=== PATIENT | female | born 1960 | race African-American/Black ===

== ENCOUNTER 2016-10-10 16:04 | Outpatient (CLI) | payer MEDICAID | END 2016-10-10 16:05 | disposition critical access hospital (66) | DX: M79.604 Pain in right leg (principal) | CPT/HCPCS: A0425; A0429 ==

== ENCOUNTER 2016-10-10 16:22 | Emergency (ER) | payer MEDICAID ==
[2016-10-10] MEDS ORDERED: HYDROcod/ACETAM 5/325 MG TABLET PO STA (18:16)
[2016-10-10] MEDS ORDERED: HYDROcod/ACETAM 5/325 MG TABLET ONE (18:18)
[2016-10-10] MEDS ORDERED: LORazepam 2 MG/ML SYRINGE IM STA (18:52)
[2016-10-10] MEDS ORDERED: LORazepam 2 MG/ML SYRINGE ONE (18:52)
== END 2016-10-10 19:26 | disposition home or self-care (01) ==
DX: S82.841A Displaced bimalleolar fracture of right lower leg, initial encounter for closed fracture (principal); I10 Essential (primary) hypertension; Z79.891 Long term (current) use of opiate analgesic; Z79.899 Other long term (current) drug therapy; W19.XXXA Unspecified fall, initial encounter; Y93.9 Activity, unspecified; Y92.009 Unspecified place in unspecified non-institutional (private) residence as the place of occurrence of the external cause; Y99.9 Unspecified external cause status
CPT/HCPCS: 73610; 96372; 99283; 99284; A9270; J2060

== ENCOUNTER 2016-10-12 15:02 | Inpatient (IN) | payer MEDICAID ==
[2016-10-12] MEDS ORDERED: SODIUM CHLORIDE FLUSH 0.9% 10 ML SYRINGE IVP PRN (15:09)
[2016-10-12] MEDS ORDERED: ONDANSETRON ODT 4 MG TABLET TL PRN (15:16)
[2016-10-12] MEDS ORDERED: diazePAM 5 MG TABLET PO PRN (15:16)
[2016-10-12] MEDS: oxyCOD/ACETAMIN 5 MG/325 MG TABLET PO PRN ×3 (15:31→23:43)
[2016-10-12] MEDS ORDERED: hydroCHLOROthiazide 25 MG TABLET PO SCH (16:00)
[2016-10-12] MEDS: SODIUM CHLORIDE FLUSH 0.9% 10 ML SYRINGE IVP SCH (19:58)
[2016-10-12] MEDS: SODIUM CHLORIDE 0.9% 1,000 ML IV SCH (19:58)
[2016-10-12] MEDS: ATORVASTATIN 10 MG TABLET PO SCH (22:49)
[2016-10-12] MEDS: diphenhydrAMINE INJ 50 MG/ML VIAL IVP PRN (22:54)
[2016-10-13] MEDS: oxyCOD/ACETAMIN 5 MG/325 MG TABLET PO PRN ×5 (04:49→21:21)
[2016-10-13] MEDS: SODIUM CHLORIDE FLUSH 0.9% 10 ML SYRINGE IVP SCH ×2 (05:18→11:45)
[2016-10-13] MEDS: diphenhydrAMINE INJ 50 MG/ML VIAL IVP PRN (06:22)
[2016-10-13] MEDS ORDERED: DEXTROSE 50% ABBOJECT 25 GM/50 ML SYRINGE IVP PRN ×2 (08:07→17:28)
[2016-10-13] MEDS ORDERED: DEXTROSE GEL 37.5 GM TUBE PO PRN ×2 (08:07→17:28)
[2016-10-13] MEDS ORDERED: DEXTROSE 5% 1,000 ML IV PRN ×2 (08:07→17:28)
[2016-10-13] MEDS ORDERED: GLUCAGON 1 MG/ML VIAL SUBQ PRN ×2 (08:07→17:28)
[2016-10-13] MEDS: FLUoxetine 10 MG CAPSULE PO SCH (08:12)
[2016-10-13] MEDS: GABAPENTIN 100 MG CAPSULE PO SCH (08:12)
[2016-10-13] MEDS: lamoTRIgine 25 MG TABLET PO SCH (08:12)
[2016-10-13] MEDS: DOCUSATE SODIUM 100 MG CAPSULE PO SCH (08:12)
[2016-10-13] MEDS: metFORMIN 500 MG TABLET PO SCH (08:18)
[2016-10-13] MEDS: ENOXAPARIN 40 MG/0.4 ML SYRINGE SUBQ SCH (08:18)
[2016-10-13] MEDS: SODIUM CHLORIDE 0.9% 1,000 ML IV SCH (11:10)
[2016-10-13] MEDS: KETOROLAC 30 MG/ML VIAL IVP PRN ×2 (11:45→17:59)
[2016-10-13] MEDS ORDERED: INSULIN GLARGINE 300 UNIT/3 ML PEN SUBQ SCH (21:00)
[2016-10-13] MEDS: PRAZOSIN 1 MG CAPSULE PO SCH (21:20)
[2016-10-13] MEDS: AMITRIPTYLINE 25 MG TABLET PO SCH (21:21)
[2016-10-13] MEDS: ATORVASTATIN 10 MG TABLET PO SCH (21:21)
[2016-10-13] MEDS: INSULIN ASPART 300 UNIT/3 ML PEN SUBQ SCH (21:26)
[2016-10-14] MEDS: SODIUM CHLORIDE 0.9% 1,000 ML IV SCH ×2 (06:11→18:12)
[2016-10-14] MEDS: SODIUM CHLORIDE FLUSH 0.9% 10 ML SYRINGE IVP SCH ×4 (06:11→19:40)
[2016-10-14] MEDS: metFORMIN 500 MG TABLET PO SCH (08:01)
[2016-10-14] MEDS: lamoTRIgine 25 MG TABLET PO SCH (08:01)
[2016-10-14] MEDS: DOCUSATE SODIUM 100 MG CAPSULE PO SCH (08:01)
[2016-10-14] MEDS: FLUoxetine 10 MG CAPSULE PO SCH (08:01)
[2016-10-14] MEDS: oxyCOD/ACETAMIN 5 MG/325 MG TABLET PO PRN ×4 (08:01→21:16)
[2016-10-14] MEDS: GABAPENTIN 100 MG CAPSULE PO SCH (08:01)
[2016-10-14] MEDS: INSULIN ASPART 300 UNIT/3 ML PEN SUBQ SCH ×4 (08:01→21:16)
[2016-10-14] MEDS: ENOXAPARIN 40 MG/0.4 ML SYRINGE SUBQ SCH (08:02)
[2016-10-14] MEDS: CHOLECALCIFEROL 1,000 UNIT TABLET PO SCH (08:17)
[2016-10-14] MEDS: KETOROLAC 30 MG/ML VIAL IVP PRN (18:09)
[2016-10-14] MEDS: diphenhydrAMINE INJ 50 MG/ML VIAL IVP PRN (19:40)
[2016-10-14] MEDS: PRAZOSIN 1 MG CAPSULE PO SCH (21:15)
[2016-10-14] MEDS: ATORVASTATIN 10 MG TABLET PO SCH (21:15)
[2016-10-14] MEDS: AMITRIPTYLINE 25 MG TABLET PO SCH (21:15)
[2016-10-14] MEDS: INSULIN GLARGINE 300 UNIT/3 ML PEN SUBQ SCH (21:17)
[2016-10-15] MEDS: KETOROLAC 30 MG/ML VIAL IVP PRN ×3 (00:11→16:38)
[2016-10-15] MEDS: SODIUM CHLORIDE 0.9% 1,000 ML IV SCH ×2 (06:11→11:19)
[2016-10-15] MEDS: SODIUM CHLORIDE FLUSH 0.9% 10 ML SYRINGE IVP SCH ×3 (06:12→21:17)
[2016-10-15] MEDS: metFORMIN 500 MG TABLET PO SCH (07:43)
[2016-10-15] MEDS: ENOXAPARIN 40 MG/0.4 ML SYRINGE SUBQ SCH (07:43)
[2016-10-15] MEDS: INSULIN REGULAR HUMAN 100 UNIT/1 ML 10 ML MDV SUBQ SCH ×2 (08:05→12:26)
[2016-10-15] MEDS ORDERED: SODIUM CHLORIDE 0.9% 1,000 ML IV ONE (09:01)
[2016-10-15] MEDS ORDERED: MIDAZOLAM 2 MG/2 ML VIAL IVP ONE (09:25)
[2016-10-15] MEDS ORDERED: fentaNYL 100 MCG/2 ML VIAL IVP ONE (09:25)
[2016-10-15] MEDS ORDERED: DEXAMETHASONE 4 MG/ML VIAL IVP ONE (09:25)
[2016-10-15] MEDS ORDERED: PROPOFOL 200 MG/20 ML VIAL IVP ONE (09:25)
[2016-10-15] MEDS ORDERED: ONDANSETRON 4 MG/2 ML VIAL IVP ONE (09:25)
[2016-10-15] MEDS ORDERED: ceFAZolin 1 GM VIAL IV ONE (09:25)
[2016-10-15] MEDS ORDERED: LIDOCAINE-MPF 2% 5 ML VIAL IM ONE (09:25)
[2016-10-15] MEDS ORDERED: LACTATED RINGERS 1,000 ML IV ONE (09:56)
[2016-10-15] MEDS ORDERED: ONDANSETRON 4 MG/2 ML VIAL IVP PRN (10:06)
[2016-10-15] MEDS ORDERED: ACETAMINOPHEN 325 MG TABLET PO PRN (10:06)
[2016-10-15] MEDS: fentaNYL 100 MCG/2 ML VIAL ONE ×2 (10:20→10:30)
[2016-10-15] MEDS: DOCUSATE SODIUM 100 MG CAPSULE PO SCH ×2 (11:19→21:16)
[2016-10-15] MEDS: CHOLECALCIFEROL 1,000 UNIT TABLET PO SCH (11:19)
[2016-10-15] MEDS: FLUoxetine 10 MG CAPSULE PO SCH (11:19)
[2016-10-15] MEDS: lamoTRIgine 25 MG TABLET PO SCH (11:20)
[2016-10-15] MEDS: GABAPENTIN 100 MG CAPSULE PO SCH (11:20)
[2016-10-15] MEDS: oxyCOD/ACETAMIN 5 MG/325 MG TABLET PO PRN (13:21)
[2016-10-15] MEDS ORDERED: hydroCHLOROthiazide 25 MG TABLET PO SCH (14:44)
[2016-10-15] MEDS: oxyCODONE 5 MG TABLET PO PRN ×2 (16:38→21:15)
[2016-10-15] MEDS ORDERED: ceFAZolin 2 GM/50 ML 50 ML IV SCH (17:00)
[2016-10-15] MEDS: INSULIN ASPART 300 UNIT/3 ML PEN SUBQ SCH ×2 (17:15→21:16)
[2016-10-15] MEDS: ATORVASTATIN 10 MG TABLET PO SCH (21:13)
[2016-10-15] MEDS: AMITRIPTYLINE 25 MG TABLET PO SCH (21:13)
[2016-10-15] MEDS: PRAZOSIN 1 MG CAPSULE PO SCH (21:14)
[2016-10-15] MEDS: ACETAMINOPHEN 500 MG TABLET PO SCH (21:14)
[2016-10-15] MEDS: INSULIN GLARGINE 300 UNIT/3 ML PEN SUBQ SCH (21:16)
[2016-10-15] MEDS: SENNA 8.6 MG TABLET PO SCH (21:16)
[2016-10-15] MEDS ORDERED: MAGNESIUM HYDROXIDE 2,400 MG/30 ML UDC PO PRN (23:12)
[2016-10-16] MEDS: oxyCODONE 5 MG TABLET PO PRN ×4 (02:11→17:14)
[2016-10-16] MEDS: ACETAMINOPHEN 500 MG TABLET PO SCH ×3 (05:20→21:14)
[2016-10-16] MEDS: KETOROLAC 30 MG/ML VIAL IVP PRN ×2 (05:21→21:22)
[2016-10-16] MEDS: SODIUM CHLORIDE FLUSH 0.9% 10 ML SYRINGE IVP SCH ×3 (05:30→21:15)
[2016-10-16] MEDS: INSULIN ASPART 300 UNIT/3 ML PEN SUBQ SCH ×4 (08:17→21:05)
[2016-10-16] MEDS: FLUoxetine 10 MG CAPSULE PO SCH (08:19)
[2016-10-16] MEDS: SENNA 8.6 MG TABLET PO SCH ×2 (08:19→21:14)
[2016-10-16] MEDS: lamoTRIgine 25 MG TABLET PO SCH (08:19)
[2016-10-16] MEDS: metFORMIN 500 MG TABLET PO SCH ×2 (08:19→17:14)
[2016-10-16] MEDS: GABAPENTIN 100 MG CAPSULE PO SCH (08:19)
[2016-10-16] MEDS: DOCUSATE SODIUM 100 MG CAPSULE PO SCH ×2 (08:20→21:14)
[2016-10-16] MEDS: hydroCHLOROthiazide 25 MG TABLET PO SCH (08:20)
[2016-10-16] MEDS: POLYETHYLENE GLYCOL 3350 17 GM PACKET PO SCH (08:21)
[2016-10-16] MEDS: ENOXAPARIN 40 MG/0.4 ML SYRINGE SUBQ SCH (08:21)
[2016-10-16] MEDS: CHOLECALCIFEROL 1,000 UNIT TABLET PO SCH (08:31)
[2016-10-16] MEDS: SODIUM CHLORIDE 0.9% 1,000 ML IV SCH (18:04)
[2016-10-16] MEDS: AMITRIPTYLINE 25 MG TABLET PO SCH (21:13)
[2016-10-16] MEDS: ATORVASTATIN 10 MG TABLET PO SCH (21:14)
[2016-10-16] MEDS: PRAZOSIN 1 MG CAPSULE PO SCH (21:14)
[2016-10-16] MEDS: INSULIN GLARGINE 300 UNIT/3 ML PEN SUBQ SCH (21:15)
[2016-10-17] MEDS ORDERED: BISACODYL 10 MG SUPP PR PRN (01:25)
[2016-10-17] MEDS: SODIUM CHLORIDE FLUSH 0.9% 10 ML SYRINGE IVP SCH ×2 (06:19→13:23)
[2016-10-17] MEDS: ACETAMINOPHEN 500 MG TABLET PO SCH ×2 (07:03→13:20)
[2016-10-17] MEDS: metFORMIN 500 MG TABLET PO SCH (08:52)
[2016-10-17] MEDS: ENOXAPARIN 40 MG/0.4 ML SYRINGE SUBQ SCH (08:52)
[2016-10-17] MEDS: GABAPENTIN 100 MG CAPSULE PO SCH (08:52)
[2016-10-17] MEDS: CHOLECALCIFEROL 1,000 UNIT TABLET PO SCH (08:53)
[2016-10-17] MEDS: hydroCHLOROthiazide 25 MG TABLET PO SCH (08:53)
[2016-10-17] MEDS: FLUoxetine 10 MG CAPSULE PO SCH (08:53)
[2016-10-17] MEDS: lamoTRIgine 25 MG TABLET PO SCH (08:53)
[2016-10-17] MEDS: POLYETHYLENE GLYCOL 3350 17 GM PACKET PO SCH (09:02)
[2016-10-17] MEDS: DOCUSATE SODIUM 100 MG CAPSULE PO SCH (09:02)
[2016-10-17] MEDS: INSULIN ASPART 300 UNIT/3 ML PEN SUBQ SCH ×2 (09:02→11:58)
[2016-10-17] MEDS: SENNA 8.6 MG TABLET PO SCH (09:02)
[2016-10-17] MEDS: oxyCODONE 5 MG TABLET PO PRN ×2 (09:06→15:21)
[2016-10-17] MEDS: SODIUM CHLORIDE 0.9% 1,000 ML IV SCH (11:46)
== END 2016-10-17 15:46 | DRG 563 ==
DX: S82.841A Displaced bimalleolar fracture of right lower leg, initial encounter for closed fracture (principal); Z68.41 Body mass index [BMI] 40.0-44.9, adult; W01.0XXA Fall on same level from slipping, tripping and stumbling without subsequent striking against object, initial encounter; Y93.9 Activity, unspecified; E11.42 Type 2 diabetes mellitus with diabetic polyneuropathy; E66.01 Morbid (severe) obesity due to excess calories; F10.10 Alcohol abuse, uncomplicated; I10 Essential (primary) hypertension; E78.5 Hyperlipidemia, unspecified; G89.29 Other chronic pain; M25.562 Pain in left knee; M25.561 Pain in right knee; F32.9 Major depressive disorder, single episode, unspecified; Z86.79 Personal history of other diseases of the circulatory system; I69.292 Facial weakness following other nontraumatic intracranial hemorrhage; R41.3 Other amnesia; H53.8 Other visual disturbances; Z79.84 Long term (current) use of oral hypoglycemic drugs; Z79.891 Long term (current) use of opiate analgesic; Z79.899 Other long term (current) drug therapy; Y92.009 Unspecified place in unspecified non-institutional (private) residence as the place of occurrence of the external cause; Y99.9 Unspecified external cause status

== ENCOUNTER 2016-11-01 12:30 | Outpatient (CLI) | payer MEDICAID | END 2016-11-01 12:31 | disposition home or self-care (01) | DX: S82.841D Displaced bimalleolar fracture of right lower leg, subsequent encounter for closed fracture with routine healing (principal) ==

== ENCOUNTER 2016-11-28 07:23 | Inpatient (IN) | payer MEDICAID ==
[~2016-11-28 07:23] MED LIST: ceFAZolin 2 GM/50 ML 50 ML IV ONE
[2016-11-28] MEDS ORDERED: LACTATED RINGERS 1,000 ML IV ONE ×2 (08:21→11:56)
[2016-11-28] MEDS ORDERED: BUPIVACAINE 0.25%-EPI 1:200000 PF 30 ML VIAL SUBQ ONE ×2 (09:14→10:33)
[2016-11-28] MEDS ORDERED: LIDOCAINE 1% 50 ML MDV SUBQ ONE ×2 (09:14→10:33)
[2016-11-28] MEDS ORDERED: PHENYLEPHRINE 50 MG/5 ML VIAL IV ONE (09:37)
[2016-11-28] MEDS ORDERED: ONDANSETRON 4 MG/2 ML VIAL IVP ONE (09:37)
[2016-11-28] MEDS ORDERED: METOCLOPRAMIDE 10 MG/2 ML VIAL IVP ONE (09:37)
[2016-11-28] MEDS ORDERED: SUCCINYLCHOLINE 200 MG/10 ML VIAL IVP ONE (09:37)
[2016-11-28] MEDS ORDERED: MIDAZOLAM 2 MG/2 ML VIAL IVP ONE (09:37)
[2016-11-28] MEDS ORDERED: fentaNYL 100 MCG/2 ML VIAL IVP ONE (09:37)
[2016-11-28] MEDS ORDERED: LIDOCAINE-MPF 2% 5 ML VIAL IM ONE (09:37)
[2016-11-28] MEDS ORDERED: PROPOFOL 200 MG/20 ML VIAL IVP ONE (09:37)
[2016-11-28] MEDS ORDERED: KETOROLAC 30 MG/ML VIAL IVP ONE (09:37)
[2016-11-28] MEDS ORDERED: KETAMINE 500 MG/10 ML VIAL IVP ONE (09:37)
[2016-11-28] MEDS ORDERED: ACETAMINOPHEN 1,000 MG/100 ML VIAL IV ONE (09:37)
[2016-11-28] MEDS ORDERED: PROCHLORPERAZINE 10 MG/2 ML VIAL IVP PRN (10:55)
[2016-11-28] MEDS ORDERED: ONDANSETRON 4 MG/2 ML VIAL IVP PRN (10:55)
[2016-11-28] MEDS ORDERED: ACETAMINOPHEN 325 MG TABLET PO PRN (10:55)
[2016-11-28] MEDS: HYDROmorphone 1 MG/ML SYRINGE ONE ×2 (11:16→11:24)
[2016-11-28] MEDS ORDERED: diphenhydrAMINE INJ 50 MG/ML VIAL ONE (11:39)
[2016-11-28] MEDS: GABAPENTIN 100 MG CAPSULE PO SCH ×3 (13:32→21:02)
[2016-11-28] MEDS: SODIUM CHLORIDE FLUSH 0.9% 10 ML SYRINGE IVP SCH ×2 (13:32→21:02)
[2016-11-28] MEDS: SODIUM CHLORIDE 0.45% 1,000 ML IV SCH ×2 (13:34→23:43)
[2016-11-28] MEDS ORDERED: INSULIN 70/30 HUMAN 100 UNIT/1 ML 10 ML MDV SUBQ SCH (14:00)
[2016-11-28] MEDS: HYDROcod/ACETAM 7.5 MG/325 MG TABLET PO PRN ×3 (14:22→20:35)
[2016-11-28] MEDS: INSU100I18 SUBQ SCH ×2 (17:15→21:02)
[2016-11-28] MEDS: metFORMIN 500 MG TABLET PO SCH (17:24)
[2016-11-28] MEDS: ceFAZolin 2 GM/50 ML 50 ML IV SCH (17:24)
[2016-11-28] MEDS: ATORVASTATIN 10 MG TABLET PO SCH (20:20)
[2016-11-28] MEDS: PRAZOSIN 1 MG CAPSULE PO SCH (20:20)
[2016-11-28] MEDS: HYDROmorphone 1 MG/ML SYRINGE IVP PRN ×2 (20:36→23:43)
[2016-11-28] MEDS: INSULIN GLARGINE 300 UNIT/3 ML PEN SUBQ SCH (21:01)
[2016-11-28] MEDS ORDERED: diphenhydrAMINE 25 MG CAPSULE PO SCH (21:45)
[2016-11-29] MEDS: ceFAZolin 2 GM/50 ML 50 ML IV SCH (00:06)
[2016-11-29] MEDS: KETOROLAC 30 MG/ML VIAL IVP PRN ×3 (02:02→14:25)
[2016-11-29] MEDS: HYDROcod/ACETAM 7.5 MG/325 MG TABLET PO PRN ×3 (04:03→21:15)
[2016-11-29] MEDS: SODIUM CHLORIDE FLUSH 0.9% 10 ML SYRINGE IVP SCH ×3 (06:40→21:26)
[2016-11-29] MEDS: INSU100I18 SUBQ SCH ×4 (08:58→21:06)
[2016-11-29] MEDS: metFORMIN 500 MG TABLET PO SCH ×2 (08:58→16:55)
[2016-11-29] MEDS: CHOLECALCIFEROL 1,000 UNIT TABLET PO SCH (08:59)
[2016-11-29] MEDS: lamoTRIgine 25 MG TABLET PO SCH (08:59)
[2016-11-29] MEDS: hydroCHLOROthiazide 25 MG TABLET PO SCH (08:59)
[2016-11-29] MEDS: SODIUM CHLORIDE 0.45% 1,000 ML IV SCH (08:59)
[2016-11-29] MEDS: ASPIRIN 325 MG TABLET PO SCH ×2 (08:59→21:05)
[2016-11-29] MEDS: FLUoxetine 10 MG CAPSULE PO SCH (08:59)
[2016-11-29] MEDS: GABAPENTIN 100 MG CAPSULE PO SCH ×2 (14:25→21:14)
[2016-11-29] MEDS: diphenhydrAMINE 25 MG CAPSULE PO PRN (17:09)
[2016-11-29] MEDS: ATORVASTATIN 10 MG TABLET PO SCH (21:05)
[2016-11-29] MEDS: AMITRIPTYLINE 25 MG TABLET PO SCH (21:05)
[2016-11-29] MEDS: PRAZOSIN 1 MG CAPSULE PO SCH (21:14)
[2016-11-29] MEDS: INSULIN GLARGINE 300 UNIT/3 ML PEN SUBQ SCH (21:16)
[2016-11-29] MEDS: BENZOCAINE/MENTHOL LOZENGE MM PRN (22:45)
[2016-11-30] MEDS: MORPHINE 2 MG/ML SYRINGE IVP PRN ×2 (00:29→21:08)
[2016-11-30] MEDS: SODIUM CHLORIDE FLUSH 0.9% 10 ML SYRINGE IVP PRN ×6 (00:30→23:47)
[2016-11-30] MEDS: KETOROLAC 30 MG/ML VIAL IVP PRN ×4 (00:44→23:47)
[2016-11-30] MEDS: diphenhydrAMINE 25 MG CAPSULE PO PRN (00:44)
[2016-11-30] MEDS: HYDROcod/ACETAM 7.5 MG/325 MG TABLET PO PRN ×4 (06:15→19:37)
[2016-11-30] MEDS: GABAPENTIN 100 MG CAPSULE PO SCH ×3 (06:16→21:06)
[2016-11-30] MEDS: SODIUM CHLORIDE FLUSH 0.9% 10 ML SYRINGE IVP SCH ×3 (06:57→21:11)
[2016-11-30] MEDS: metFORMIN 500 MG TABLET PO SCH ×2 (07:48→16:56)
[2016-11-30] MEDS: INSU100I18 SUBQ SCH ×4 (07:50→21:09)
[2016-11-30] MEDS: CHOLECALCIFEROL 1,000 UNIT TABLET PO SCH (08:37)
[2016-11-30] MEDS: hydroCHLOROthiazide 25 MG TABLET PO SCH (08:37)
[2016-11-30] MEDS: ASPIRIN 325 MG TABLET PO SCH ×2 (08:37→21:06)
[2016-11-30] MEDS: FLUoxetine 10 MG CAPSULE PO SCH (08:37)
[2016-11-30] MEDS: lamoTRIgine 25 MG TABLET PO SCH (08:37)
[2016-11-30] MEDS: DOCUSATE SODIUM 250 MG CAPSULE PO SCH (19:37)
[2016-11-30] MEDS: AMITRIPTYLINE 25 MG TABLET PO SCH (21:05)
[2016-11-30] MEDS: PRAZOSIN 1 MG CAPSULE PO SCH (21:06)
[2016-11-30] MEDS: ATORVASTATIN 10 MG TABLET PO SCH (21:07)
[2016-11-30] MEDS: INSULIN GLARGINE 300 UNIT/3 ML PEN SUBQ SCH (21:08)
[2016-11-30] MEDS: BENZOCAINE/MENTHOL LOZENGE MM PRN (21:10)
[2016-12-01] MEDS: MORPHINE 2 MG/ML SYRINGE IVP PRN (05:10)
[2016-12-01] MEDS: HYDROcod/ACETAM 7.5 MG/325 MG TABLET PO PRN ×2 (05:11→14:21)
[2016-12-01] MEDS: SODIUM CHLORIDE FLUSH 0.9% 10 ML SYRINGE IVP SCH (05:11)
[2016-12-01] MEDS: GABAPENTIN 100 MG CAPSULE PO SCH ×2 (05:18→14:21)
[2016-12-01] MEDS: metFORMIN 500 MG TABLET PO SCH (08:47)
[2016-12-01] MEDS: FLUoxetine 10 MG CAPSULE PO SCH (08:48)
[2016-12-01] MEDS: CHOLECALCIFEROL 1,000 UNIT TABLET PO SCH (08:48)
[2016-12-01] MEDS: DOCUSATE SODIUM 250 MG CAPSULE PO SCH (08:48)
[2016-12-01] MEDS: hydroCHLOROthiazide 25 MG TABLET PO SCH (08:48)
[2016-12-01] MEDS: lamoTRIgine 25 MG TABLET PO SCH (08:49)
[2016-12-01] MEDS: INSU100I18 SUBQ SCH ×2 (08:49→14:18)
[2016-12-01] MEDS: ASPIRIN 325 MG TABLET PO SCH (08:49)
[2016-12-01] MEDS: KETOROLAC 30 MG/ML VIAL IVP PRN ×2 (08:52→14:25)
[2016-12-01] MEDS ORDERED: POLYETHYLENE GLYCOL 3350 17 GM PACKET PO SCH (09:00)
[2016-12-01] MEDS ORDERED: SENNA 8.6 MG TABLET PO SCH (09:00)
== END 2016-12-01 15:30 | DRG 494 ==
PROC: 0QSJ04Z Reposition Right Fibula with Internal Fixation Device, Open Approach (ICD-10-PCS; principal; 2016-11-28 08:45)
DX: S82.841K Displaced bimalleolar fracture of right lower leg, subsequent encounter for closed fracture with nonunion (principal); I10 Essential (primary) hypertension; E11.9 Type 2 diabetes mellitus without complications; Z79.4 Long term (current) use of insulin

== ENCOUNTER 2018-03-25 17:29 | Outpatient (CLI) | payer MEDICAID | END 2018-03-25 17:30 | disposition critical access hospital (66) | LOC: EMS 17:29 | PROVIDERS: ATTEND Surgery | DX: R41.82 Altered mental status, unspecified (principal) | CPT/HCPCS: A0425; A0429; A0999 ==

== ENCOUNTER 2018-03-25 17:49 | Emergency (ER) | payer MEDICAID ==
--- NOTE | 2018-03-25 18:06 | ED Physician Documentation ---
History of Present Illness - Stated complaint Stated Complaint: AMS - Chief complaint Chief Complaint: General - History obtained from History obtained from: Patient, EMS - History of Present Illness Timing: Today - Additonal information Additional information: Patient is unable to give much history. She is a 57-year-old female who was found passed out in the bushes behind [employer]. There was an empty whiskey bottle near her. Unknown if any head injury occurred. She has been altered since EMS was called. She is a diabetic, unknown what her blood sugar is. She is slurring her words heavily. 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 - Present Medications Home Medications: Ambulatory Orders Medication Instructions Recorded Confirmed FLUoxetine [PROzac] 20 mg PO DAILY 10/27/15 11/28/16 Gabapentin 100 mg PO TID 10/27/15 11/28/16 lamoTRIgine [LaMICtal] 50 mg PO DAILY 10/27/15 11/28/16 metFORMIN [Glucophage] 1,000 mg PO BIDWM 10/27/15 11/28/16 Amitriptyline [Elavil] 100 mg PO QPM 10/12/16 11/28/16 Cholecalciferol (Vitamin D3) 2,000 unit PO DAILY 10/12/16 11/28/16 [Vitamin D3] Prazosin [Minipress] 2 mg PO QPM 10/12/16 11/28/16 hydroCHLOROthiazide [Hydrodiuril] 25 mg PO DAILY tablet 10/16/16 11/28/16 Hydrocodone/Acetaminophen 1 tab PO QID PRN 11/28/16 11/28/16 [Hydrocodone-Acetamin 7.5-325] Insulin Aspart [Novolog Flexpen] 1 - 29 units SUBQ ACHS 11/28/16 11/28/16 Insulin Glargine [Lantus] 14 units SQ QPM 11/28/16 11/28/16 diazePAM [Diazepam] 5 mg PO BID 11/28/16 11/28/16 Acetaminophen [Tylenol] 650 - 975 mg PO Q4HR PRN #0 tablet 11/29/16 Aspirin [Carol] 325 mg PO BID tablet 11/29/16 HYDROcodone/ACET 7.5/325 [[place] 1 tab PO QID PRN #60 tablet 11/29/16 7.5/325] - Allergies Allergies/Adverse Reactions: Allergies Allergy/AdvReac Type Severity Reaction Status Date / Time No Known Drug Allergies Allergy Verified 03/25/18 22:23 - Social History Does the pt smoke?: No Smoking Status: Never smoker Does the pt drink ETOH?: Yes Does the pt have substance abuse?: No - Immunizations Immunizations are current?: Yes PD ED PE NORMAL - Vitals Vital signs reviewed: Yes - General General: No acute distress, Other (drowsy, arousable heavily slurred speech. Smells of Etoh.) - HEENT HEENT: Atraumatic, PERRL, Moist mucous membranes, Pharynx benign - Neck Neck: Supple, no meningeal sign, No bony TTP - Cardiac Cardiac: RRR - Respiratory Respiratory: No respiratory distress, Clear bilaterally - Abdomen Abdomen: Soft, Non tender, Non distended - Back Back: No spinal TTP - Derm Derm: Warm and dry, No rash - Neuro Neuro: Other (drowsy) Results - Vitals Vitals: Vital Signs - 24 hr 03/25/18 03/25/18 03/25/18 17:53 19:35 20:30 Temperature 36.3 C L Heart Rate 89 77 75 Respiratory 18 14 18 Rate Blood Pressure 118/78 137/72 H 135/85 H O2 Saturation 84 L 95 96 03/25/18 03/25/18 03/25/18 22:08 22:46 23:32 Temperature Heart Rate 83 74 78 Respiratory 17 13 14 Rate Blood Pressure 124/70 123/65 122/68 O2 Saturation 97 99 98 03/26/18 03/26/18 00:07 01:10 Temperature Heart Rate 71 72 Respiratory 14 13 Rate Blood Pressure 137/75 H 133/78 H O2 Saturation 100 100 Oxygen O2 Source [] Nasal cannula O2 Source Nasal cannula Oxygen Flow Rate 2 - EKG (time done) 1818 Rate: Rate (enter#) (89) Rhythm: NSR [place]: Normal Intervals: Normal DE QRS: Normal Ischemia: Normal ST segments - Labs Labs: Laboratory Tests 03/25/18 03/25/18 03/25/18 18:35 18:35 18:35 WBC 9.7 RBC 4.43 Hgb 12.8 Hct 38.2 MCV 86.2 MCH 28.9 MCHC 33.5 RDW 15.9 H Plt Count 196 MPV 8.8 Neut # (Auto) 4.8 Lymph # (Auto) 4.0 H [place] # (Auto) 0.6 Eos # (Auto) 0.1 Baso # (Auto) 0.1 Absolute Nucleated RBC 0.01 Nucleated RBC % 0.1 Sodium 139 Potassium 3.5 Chloride 104 Carbon Dioxide 24 Anion Gap 11.0 BUN 9 Creatinine 0.5 Estimated GFR (MDRD) 154 Glucose 92 Calcium 8.8 Total Bilirubin 0.8 AST 53 H ALT 43 Alkaline Phosphatase 153 H Total Protein 8.1 Albumin 4.0 Globulin 4.1 Albumin/Globulin Ratio 1.0 Lipase 26 TSH 1.78 Urine Color Urine Clarity Urine pH Ur Specific [place] Urine Protein Urine Glucose (UA) Urine Ketones Urine Occult Blood Urine Nitrite Urine Bilirubin Urine Urobilinogen Ur Leukocyte Esterase Urine RBC Urine WBC Ur Squamous Epith Cells Urine Bacteria Ur Microscopic Review Urine Culture Comments Salicylates < 6.0 Urine Opiates Screen Ur Oxycodone Screen Urine Methadone Screen Ur Propoxyphene Screen Acetaminophen < 10 L Ur Barbiturates Screen Ur Tricyclics Screen Ur Phencyclidine Scrn Ur Amphetamine Screen U Methamphetamines Scrn U Benzodiazepines Scrn Urine Cocaine Screen U Cannabinoids Screen Ethyl Alcohol 418.7 03/25/18 18:45 WBC RBC Hgb Hct MCV MCH MCHC RDW Plt Count MPV Neut # (Auto) Lymph # (Auto) [place] # (Auto) Eos # (Auto) Baso # (Auto) Absolute Nucleated RBC Nucleated RBC % Sodium Potassium Chloride Carbon Dioxide Anion Gap BUN Creatinine Estimated GFR (MDRD) Glucose Calcium Total Bilirubin AST ALT Alkaline Phosphatase Total Protein Albumin Globulin Albumin/Globulin Ratio Lipase TSH Urine Color YELLOW Urine Clarity CLEAR Urine pH 6.0 Ur Specific [place] <=1.005 Urine Protein TRACE Urine Glucose (UA) NEGATIVE Urine Ketones NEGATIVE Urine Occult Blood NEGATIVE Urine Nitrite NEGATIVE Urine Bilirubin NEGATIVE Urine Urobilinogen 0.2 (NORMAL) Ur Leukocyte Esterase TRACE H Urine RBC 0-5 Urine WBC 6-10 H Ur Squamous Epith Cells MOD Squamous H Urine Bacteria Rare Ur Microscopic Review INDICATED Urine Culture Comments NOT INDICATED Salicylates Urine Opiates Screen NEGATIVE Ur Oxycodone Screen NEGATIVE Urine Methadone Screen NEGATIVE Ur Propoxyphene Screen NEGATIVE Acetaminophen Ur Barbiturates Screen NEGATIVE Ur Tricyclics Screen NEGATIVE Ur Phencyclidine Scrn NEGATIVE Ur Amphetamine Screen NEGATIVE U Methamphetamines Scrn NEGATIVE U Benzodiazepines Scrn POSITIVE H Urine Cocaine Screen NEGATIVE U Cannabinoids Screen NEGATIVE Ethyl Alcohol - Rads (name of study) head CT Radiology: Prelim report reviewed, EMP read contemporaneously, See rad report ( No acute intracranial abnormality. ) cervical spine CT Radiology: Prelim report reviewed, EMP read contemporaneously, See rad report ( No acute fracture.. ) cxr Radiology: Prelim report reviewed, EMP read contemporaneously, See rad report ( There is cardiomegaly . Low lung volumes. . Increased perihilar opacity could be secondary to edema and/or low depth of inspiration. . No evidence of lobar infiltrate or large effusion. . No pneumothorax. ) PD MEDICAL DECISION MAKING - ED course Complexity details: reviewed results, re-evaluated patient, considered differential, d/w patient ED course: Patient is a 57-year-old female who presents to the emergency department after being found unconscious in the [facility]. A empty bottle of whiskey was next to her. No acute findings on head CT or cervical spine CT. She was hypoxic and on x-ray does not reveal any acute abnormalities in the chest. She did become combative in the emergency department and a dose of intramuscular ketamine was used for sedation to obtain imaging, laboratory testing and to medically clear her. She will be allowed to sober in the emergency department to be reevaluated when she is sober. Patient signed out to oncoming emergency department physician This document was made in part using voice recognition software. While efforts are made to proofread this document, sound alike and grammatical errors may occur. - Sepsis Event Vital Signs: Vital Signs - 24 hr 03/25/18 03/25/18 03/25/18 17:53 19:35 20:30 Temperature 36.3 C L Heart Rate 89 77 75 Respiratory 18 14 18 Rate Blood Pressure 118/78 137/72 H 135/85 H O2 Saturation 84 L 95 96 03/25/18 03/25/18 03/25/18 22:08 22:46 23:32 Temperature Heart Rate 83 74 78 Respiratory 17 13 14 Rate Blood Pressure 124/70 123/65 122/68 O2 Saturation 97 99 98 03/26/18 03/26/18 00:07 01:10 Temperature Heart Rate 71 72 Respiratory 14 13 Rate Blood Pressure 137/75 H 133/78 H O2 Saturation 100 100 Oxygen O2 Source [] Nasal cannula O2 Source Nasal cannula Oxygen Flow Rate 2 Departure - Departure Clinical Impression: Alcohol intoxication Qualifiers: Complication of substance-induced condition: uncomplicated Qualified Code(s): F10.920 - Alcohol use, unspecified with intoxication, uncomplicated Altered mental status Qualifiers: Altered mental status type: unspecified Qualified Code(s): R41.82 - Altered mental status, unspecified Condition: Stable
[2018-03-25] MEDS ORDERED: KETAMINE 500 MG/10 ML VIAL IM STA (18:17)
[2018-03-25 18:55] LABS: BASOPHILS # (AUTO) 0.1 10^3/uL (0.0-0.1); EOSINOPHILS # (AUTO) 0.1 10^3/uL (0.0-0.7); EOSINOPHILS % (AUTO) 1.5 %; HGB - HEMOGLOBIN 12.8 g/dL (12.0-16.0); LYMPHOCYTES % (AUTO) 41.6 %; MEAN CORPUSCULAR HEMOGLOBIN 28.9 pg (27.0-31.0); MEAN CORPUSCULAR HGB CONC 33.5 g/dL (32.0-36.0); MEAN CORPUSCULAR VOLUME 86.2 fL (81.0-99.0); MEAN PLATELET VOLUME 8.8 fL (7.9-10.8); MONOCYTES # (AUTO) 0.6 10^3/uL (0.0-1.0); MONOCYTES % (AUTO) 6.7 %; NEUTROPHILS # (AUTO) 4.8 10^3/uL (1.5-6.6); NEUTROPHILS % (AUTO) 49.2 %; PLT - PLATELET COUNT 196 10^3/uL (130-450); RED BLOOD COUNT 4.43 10^6/uL (4.20-5.40); RED CELL DISTRIBUTION WIDTH 15.9 % (12.0-15.0); WHITE BLOOD COUNT 9.7 x10^3/uL (4.8-10.8)
[2018-03-25 19:13] LABS: ALKALINE PHOSPHATASE 153 IU/L (42-121); ALT ALANINE AMINOTRANSFERASE 43 IU/L (10-60); AST ASPARTATE AMINOTRANSFERASE 53 IU/L (10-42); BILIRUBIN,TOTAL 0.8 mg/dL (0.2-1.0); BUN - BLOOD UREA NITROGEN 9 mg/dL (6-20); CALCIUM 8.8 mg/dL (8.5-10.3); CARBON DIOXIDE - CO2 24 mmol/L (21-32); CHLORIDE 104 mmol/L (101-111); CREATININE 0.5 mg/dL (0.4-1.0); GFR - MDRD 154 (>89); GLUCOSE 92 mg/dL (70-100); LIPASE 26 U/L (22-51); SALICYLATE < 6.0 mg/dL; SODIUM 139 mmol/L (135-145); TOTAL PROTEIN 8.1 g/dL (6.7-8.2)
[2018-03-25 19:17] LABS: ACETAMINOPHEN < 10 ug/mL (10-30)
[2018-03-25 19:22] LABS: MUDS CUTOFF CONCENTRATIONS CUTOFF CONC BELOW:
[2018-03-25 19:34] LABS: BILIRUBIN,URINE NEGATIVE (NEGATIVE); GLUCOSE, URINE (UA) NEGATIVE (NEGATIVE); KETONES,URINE (UA) NEGATIVE (NEGATIVE); LEUKOCYTE ESTERASE, URINE TRACE (NEGATIVE); NITRITE,URINE NEGATIVE (NEGATIVE); OCCULT BLOOD,URINE NEGATIVE (NEGATIVE); PROTEIN,URINE TRACE mg/dL (NEGATIVE); UROBILINOGEN,URINE 0.2 (NORMAL) E.U./dL (NORMAL)
[2018-03-25 19:37] LABS: CLARITY,URINE CLEAR (CLEAR)
[2018-03-25 19:45] LABS: AMPHETAMINE SCREEN,URINE NEGATIVE (NEGATIVE); BENZODIAZEPINES SCREEN, URINE POSITIVE (NEGATIVE); COCAINE SCREEN URINE NEGATIVE (NEGATIVE); METHADONE SCREEN, URINE NEGATIVE (NEGATIVE); METHAMPHETAMINES SCREEN, URINE NEGATIVE (NEGATIVE); OPIATE SCREEN, URINE NEGATIVE (NEGATIVE); OXYCODONE SCREEN, URINE NEGATIVE (NEGATIVE); PROPOXYPHENE SCREEN, URINE NEGATIVE (NEGATIVE); TRICYCLIC ANTIDEPRESSANT,URINE NEGATIVE (NEGATIVE)
--- NOTE | 2018-03-25 19:45 | CT Report ---
Procedure Date: 03/25/2018 Accession Number: [id number] / [id number] Procedure: CT - Head W/O CPT Code: FULL RESULT: EXAM: CT HEAD EXAM DATE: 03/25/2018 07:15 PM. CLINICAL HISTORY: Fall, ALOC. COMPARISON: 08/11/2015. TECHNIQUE: Multiaxial CT images were obtained from the foramen magnum to the vertex. Reformats: Sagittal and coronal. IV contrast: None. In accordance with CT protocol optimization, one or more of the following dose reduction techniques were utilized for this exam: automated exposure control, adjustment of mA and/or KV based on patient size, or use of iterative reconstructive technique. FINDINGS: Parenchyma: No intraparenchymal hemorrhage. No evidence of mass, midline shift, or CT findings of infarction. Lau-white differentiation is distinct. Extraaxial Spaces: Normal for age. No subdural or epidural collections identified. Ventricles: Normal in size and position. Sinuses and Orbits: Probable remote medial orbital wall fractures bilaterally. Bones: Left-sided ebony holes. No acute calvarial fracture. Other: None. IMPRESSION: No acute intracranial abnormality. RADIA
--- NOTE | 2018-03-25 19:49 | CT Report ---
Procedure Date: 03/25/2018 Accession Number: [id number] / [id number] Procedure: CT - Cervical Spine W/O CPT Code: FULL RESULT: EXAM: CT CERVICAL SPINE WITHOUT CONTRAST DATE: 03/25/2018 07:15 PM. HISTORY: Fall, ALOC. COMPARISONS: 08/11/2015. TECHNIQUE: Thin-section axial images were acquired of the cervical spine without contrast. Post-processing: Coronal and sagittal reformats. Other: None. In accordance with CT protocol optimization, one or more of the following dose reduction techniques were utilized for this exam: automated exposure control, adjustment of mA and/or KV based on patient size, or use of iterative reconstructive technique. FINDINGS: Examination is mildly limited by beam attenuation from patient body habitus. Alignment: No scoliosis or spondylolisthesis. Bones: No fracture or bone lesion. Interspace Levels/Facets: Moderate disk degeneration at C5-C6 and C6-C7 with endplate proliferation, not significantly changed. Musculature: Unremarkable. Other: The paravertebral and prevertebral soft tissues are unremarkable. The lung apices are clear. IMPRESSION: No acute fracture.. RADIA
--- NOTE | 2018-03-25 20:02 | XRAY Report ---
Procedure Date: 03/25/2018 Accession Number: [id number] / [id number] Procedure: XR - Chest 1 View X-Ray CPT Code: 04802 FULL RESULT: EXAM: CHEST RADIOGRAPHY EXAM DATE: 03/25/2018 07:26 PM. CLINICAL HISTORY: Hypoxia. COMPARISON: 12/17/2012 12:00 AM. TECHNIQUE: 1 view. FINDINGS: Lungs/Pleura: Lung volumes are low. There is increased perihilar opacity. No evidence of lobar infiltrate or large effusion. Mediastinum: There is cardiomegaly. Other: None. IMPRESSION: 1. There is cardiomegaly. 2. Low lung volumes. 3. Increased perihilar opacity could be secondary to edema and/or low depth of inspiration. 4. No evidence of lobar infiltrate or large effusion. 5. No pneumothorax. RADIA
[2018-03-25 20:05] LABS: BACTERIA,URINE Rare /HPF (None Seen); RBC,URINE 0-5 /HPF (0-5); SQUAMOUS EPITHELIAL CELL,UR MOD Squamous (<= Few)
[2018-03-25] MEDS ORDERED: HALOPERIDOL 5 MG/ML VIAL IVP STA (21:58)
--- NOTE | 2018-03-26 04:56 | ED Physician Documentation ---
ED Addendum - Addendum Addendum: 03/26/18 06:41 Patient was signed over to me from Dr. Isabel. Patient was pending sobriety and disposition. Patient was observed over night. In the morning patient was able to attend to conversation and ambulate without difficulty. Patient required no further work up and was stable for discharge with outpatient follow up. Departure - Departure Disposition: 01 Home, Self Care Discharge Problem: Alcohol intoxication Qualifiers: Complication of substance-induced condition: uncomplicated Qualified Code(s): F10.920 - Alcohol use, unspecified with intoxication, uncomplicated Altered mental status Qualifiers: Altered mental status type: unspecified Qualified Code(s): R41.82 - Altered mental status, unspecified Condition: Stable Instructions: ED Alcohol Intoxication
[2018-03-26 05:02] VITALS: BP 128/72
== END 2018-03-26 05:02 | disposition home or self-care (01) ==
LOC: EDUNIT# → ED 17:49
DX: F10.920 Alcohol use, unspecified with intoxication, uncomplicated (principal); R41.82 Altered mental status, unspecified; I10 Essential (primary) hypertension; E11.9 Type 2 diabetes mellitus without complications; Z96.649 Presence of unspecified artificial hip joint
CPT/HCPCS: 36415; 70450; 71045; 72125; 80053; 80306; 80307; 80320; 80329; 81001; 81003; 83690; 84443; 85025; 87086; 93005; 96374; 99284; 99285

== ENCOUNTER 2018-11-16 08:51 | Emergency (ER) | payer MEDICAID ==
--- NOTE | 2018-11-16 09:08 | ED Physician Documentation ---
PD HPI LOWER EXT INJURY - Stated complaint Stated Complaint: FOOT PX - Chief complaint Chief Complaint: Ext Problem - History obtained from History obtained from: Patient - History of Present Illness PD HPI LOW EXT INJURY LOCATION: Left, Foot Type of injury: Other (unknown) Where injury occurred: Home Timing - onset: Yesterday Timing - duration: Days (1) Timing - details: Abrupt onset, Still present Improved by: Rest, Immobilization Worsened by: Moving, Palpating Associated symptoms: Swelling. No: Weakness Contributing factors: No: Anticoagulated Similar symptoms before: Diagnosis (foot fracture) Recently seen: Clinic - Additional information Additional information: 58-year-old diabetic female got out of bed yesterday morning states that her foot did not hurt her while she was in bed when she got out of bed her foot started hurting her she is uncertain exactly how she may have injured her foot. She states the pain progressed through the day yesterday she was able to walk her dog initially and the pain was worse following that and she had a sleepless night. This morning she was unable to bear weight and called the ambulance. Review of Systems Constitutional: denies: Fever Eyes: denies: Loss of vision Ears: denies: Ear pain Nose: denies: Congestion Throat: denies: Sore throat Respiratory: denies: Cough GI: denies: Vomiting Skin: denies: Rash Musculoskeletal: reports: Extremity pain, Extremity swelling, Pain with weight bearing. 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 - Present Medications Home Medications: Ambulatory Orders Medication Instructions Recorded Confirmed RX: FLUoxetine [PROzac] 20 mg PO DAILY 10/27/15 11/28/16 RX: Gabapentin 100 mg PO TID 10/27/15 11/28/16 RX: lamoTRIgine [LaMICtal] 50 mg PO DAILY 10/27/15 11/28/16 RX: metFORMIN [Glucophage] 1,000 mg PO BIDWM 10/27/15 11/28/16 RX: Amitriptyline [Elavil] 100 mg PO QPM 10/12/16 11/28/16 RX: Cholecalciferol (Vitamin D3) 2,000 unit PO DAILY 10/12/16 11/28/16 [Vitamin D3] RX: Prazosin [Minipress] 2 mg PO QPM 10/12/16 11/28/16 RX: hydroCHLOROthiazide 25 mg PO DAILY tablet 10/16/16 11/28/16 [Hydrodiuril] RX: Hydrocodone/Acetaminophen 1 tab PO QID PRN 11/28/16 11/28/16 [Hydrocodone-Acetamin 7.5-325] RX: Insulin Aspart [Novolog 1 - 29 units SUBQ ACHS 11/28/16 11/28/16 Flexpen] RX: Insulin Glargine [Lantus] 14 units SQ QPM 11/28/16 11/28/16 RX: diazePAM [Diazepam] 5 mg PO BID 11/28/16 11/28/16 RX: Acetaminophen [Tylenol] 650 - 975 mg PO Q4HR PRN #0 tablet 11/29/16 RX: Aspirin [Carol] 325 mg PO BID tablet 11/29/16 RX: HYDROcodone/ACET 7.5/325 1 tab PO QID PRN #60 tablet 11/29/16 [[place] 7.5/325] - Allergies Allergies/Adverse Reactions: Allergies Allergy/AdvReac Type Severity Reaction Status Date / Time No Known Drug Allergies Allergy Verified 03/25/18 22:23 - Social History Does the pt smoke?: No Smoking Status: Never smoker Does the pt drink ETOH?: Yes Does the pt have substance abuse?: No - Immunizations Immunizations are current?: Yes PD ED PE NORMAL - Vitals Vital signs reviewed: Yes (normal ) - General General: Alert and oriented X 3, Well developed/nourished, Other (crying in pain dramatically ) - HEENT HEENT: Atraumatic, PERRL - Respiratory Respiratory: No respiratory distress - Derm Derm: Normal color, Warm and dry, No rash - Extremities Extremities: No deformity, Other (There is mild swelling and marked tenderness to the dorsum of the left foot over the proximal 2,3,4 metatarsals. Distal n/v intact and there is no crepitance or reduction in the ROM. I do not appreciate sensitivity of the skin. ) - Neuro Neuro: Alert and oriented X 3, fashion styling intern 2-12 intact, No motor deficit, No sensory deficit, Normal speech Eye Opening: Spontaneous Motor: Obeys Commands Verbal: Oriented GCS Score: 15 - Psych Psych: Normal mood, Normal affect Results - Vitals Vitals: Vital Signs - 24 hr 11/16/18 11/16/18 11/16/18 08:54 09:05 11:28 Temperature 36.4 C L 36.4 C L 37.1 C Heart Rate 92 92 112 H Respiratory 12 16 12 Rate Blood Pressure 125/75 125/75 139/83 H O2 Saturation 94 94 94 Oxygen O2 Source [] Nasal cannula O2 Source Room air - Rads (name of study) foot L Radiology: Prelim report reviewed (Impression: 1. No fracture or other acute osseous abnormality. 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 There is mild swelling there is a lot of tenderness associated with it but I am not finding exquisite pain like gout. I do not feel there is no swelling for gout. X-rays are without evidence of fracture the patient has dramatic pain behavior and she is administered IM hydromorphone.. Departure - Departure Disposition: 01 Home, Self Care Clinical Impression: Left foot pain Condition: Stable Instructions: ED Contusion Lower Ext Follow-Up: Ronel Clement MD [Primary Care Provider] - [facility] [Provider Group] Discharge Date/Time: 11/16/18 11:40
--- NOTE | 2018-11-16 09:35 | XRAY Report ---
Reason: stepped wrong pain in the dorsum mid foot. Procedure Date: 11/16/2018 Accession Number: [id number] / [id number] Procedure: XR - Foot 3 View LT CPT Code: FULL RESULT: EXAM: LEFT FOOT RADIOGRAPHY EXAM DATE: 11/16/2018 09:18 AM. CLINICAL HISTORY: Stepped wrong. Pain in the dorsum mid foot. COMPARISON: None. TECHNIQUE: 3 nonweightbearing views. FINDINGS: Bones: No fractures or bone lesions. There are probable remote postsurgical changes at the proximal interphalangeal joint of the fifth toe. There is a prominent median navicular eminence. Joints: No subluxation or dislocation. There is mild joint space narrowing and marginal osteophyte formation at the first metatarsophalangeal joint. Soft Tissues: Unremarkable. No focal soft tissue swelling appreciated. IMPRESSION: 1. No fracture or other acute osseous abnormality. 2. 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 RADIA
[2018-11-16] MEDS ORDERED: ACETAMINOPHEN 500 MG TABLET PO STA (09:41)
[2018-11-16] MEDS ORDERED: HYDROmorphone 1 MG/ML CARPUJECT IM STA (10:17)
[2018-11-16] MEDS ORDERED: ONDANSETRON ODT 4 MG TABLET TL STA (10:17)
[2018-11-16 11:28] VITALS: BP 139/83
== END 2018-11-16 11:40 | disposition home or self-care (01) ==
LOC: EDUNIT# → ED 08:51
DX: M79.672 Pain in left foot (principal); E11.9 Type 2 diabetes mellitus without complications; Z79.84 Long term (current) use of oral hypoglycemic drugs; I10 Essential (primary) hypertension; Z96.649 Presence of unspecified artificial hip joint
CPT/HCPCS: 73630; 96372; 99283; A0425; A0429; J1170; Q0162

== ENCOUNTER 2018-11-16 12:22 | Outpatient (CLI) | payer MEDICAID | END 2018-11-16 12:23 | disposition critical access hospital (66) | LOC: LAB 12:22 | PROVIDERS: ATTEND Surgery | DX: M79.672 Pain in left foot (principal) ==

== ENCOUNTER 2020-04-30 11:50 | Outpatient (CLI) | payer MEDICAID | END 2020-04-30 11:51 | disposition critical access hospital (66) | LOC: EMS 11:50 | PROVIDERS: ATTEND Surgery | DX: M25.472 Effusion, left ankle (principal); M25.572 Pain in left ankle and joints of left foot | CPT/HCPCS: A0425; A0429 ==

== ENCOUNTER 2020-04-30 12:11 | Emergency (ER) | payer MEDICAID ==
--- NOTE | 2020-04-30 14:21 | ED Physician Documentation ---
History of Present Illness - Stated complaint Stated Complaint: ANKLE PX - Chief complaint Chief Complaint: Ext Problem - History obtained from History obtained from: Patient - History of Present Illness Timing: How many weeks ago (1) Pain level max: 7 Pain level now: 6 - Additonal information Additional information: 59-year-old female presents to the emergency department left foot and left ankle pain for the past week. Worse with movement and better with rest. States saw her doctor and was placed on antibiotics. She is unclear why she was placed on antibiotics. She is diabetic. Patient denies any trauma. She states that there is swelling. 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 - Present Medications Home Medications: Ambulatory Orders Medication Instructions Recorded Confirmed FLUoxetine [PROzac] 20 mg PO DAILY 10/27/15 11/28/16 Gabapentin 100 mg PO TID 10/27/15 11/28/16 lamoTRIgine [LaMICtal] 50 mg PO DAILY 10/27/15 11/28/16 metFORMIN [Glucophage] 1,000 mg PO BIDWM 10/27/15 11/28/16 Amitriptyline [Elavil] 100 mg PO QPM 10/12/16 11/28/16 Cholecalciferol (Vitamin D3) 2,000 unit PO DAILY 10/12/16 11/28/16 [Vitamin D3] Prazosin [Minipress] 2 mg PO QPM 10/12/16 11/28/16 hydroCHLOROthiazide [Hydrodiuril] 25 mg PO DAILY tablet 10/16/16 11/28/16 Hydrocodone/Acetaminophen 1 tab PO QID PRN 11/28/16 11/28/16 [Hydrocodone-Acetamin 7.5-325] Insulin Aspart [Novolog Flexpen] 1 - 29 units SUBQ ACHS 11/28/16 11/28/16 Insulin Glargine [Lantus] 14 units SQ QPM 11/28/16 11/28/16 diazePAM [Diazepam] 5 mg PO BID 11/28/16 11/28/16 Acetaminophen [Tylenol] 650 - 975 mg PO Q4HR PRN #0 tablet 11/29/16 Aspirin [Carol] 325 mg PO BID tablet 11/29/16 HYDROcodone/ACET 7.5/325 [[place] 1 tab PO QID PRN #60 tablet 11/29/16 7.5/325] - Allergies Allergies/Adverse Reactions: Allergies Allergy/AdvReac Type Severity Reaction Status Date / Time No Known Drug Allergies Allergy Verified 04/30/20 12:18 - Social History Does the pt smoke?: No Smoking Status: Never smoker Does the pt drink ETOH?: Yes Does the pt have substance abuse?: No - Immunizations Immunizations are current?: Yes PD ED PE NORMAL - Vitals Vital signs reviewed: Yes - General General: Alert and oriented X 3, No acute distress - HEENT HEENT: Moist mucous membranes - Neck Neck: Supple, no meningeal sign - Cardiac Cardiac: RRR - Respiratory Respiratory: No respiratory distress, Clear bilaterally - Abdomen Abdomen: Soft, Non tender, Non distended - Derm Derm: Warm and dry - Extremities Extremities: Other (tender to palpation over the left lateral malleolus and the dorsum of the left foot. No erythema. No warmth. NVI. ) - Neuro Neuro: Alert and oriented X 3 - Psych Psych: Normal mood, Normal affect Results - Vitals Vitals: Vital Signs - 24 hr 04/30/20 04/30/20 12:18 15:27 Temperature 36.7 C 37.1 C Heart Rate 95 103 H Respiratory 16 18 Rate Blood Pressure 113/61 134/69 H O2 Saturation 97 97 Oxygen O2 Source [Without Activity] Nasal cannula O2 Source Room air - Rads (name of study) L ankle xray Radiology: Prelim report reviewed, EMP read contemporaneously, See rad report (STS no fracture) L foot xray Radiology: Prelim report reviewed, EMP read contemporaneously, See rad report (STS no fracture) PD MEDICAL DECISION MAKING - ED course Complexity details: reviewed results, re-evaluated patient, considered differential, d/w patient ED course: Patient is a 59-year-old female who presents to the emergency department with le ft foot and ankle pain/swelling. No redness. No warmth. No signs of infection. Possible strain versus sprain. No evidence of necrotizing fasciitis. No evidence of DVT. Neurovascularly intact. When I went to discuss the results of the testing with the patient I recommended placing her in a walking boot if she is having difficulty ambulating. She is morbidly obese, so I thought crutches may be difficult for her to use. She states that she already has a walking boot, but does not use it. She also states that she already has a walker and crutches. She states that she does not use these either. I recommended to her again to utilize the walking boot and a walker, then to have close follow-up with her doctor. Patient became agitated in the emergency department. She states that she does not know why her foot hurts, I asked her if she had pain medication at home and she said "a little". 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 She radha lly accepted a walker and walking boot here. Still refuses blood work. She transferred without difficulty from the stretcher to a wheelchair and wheelchair to upright in the bathroom where she walked over to the toilet without a limp. She is afebrile. No evidence of osteomyelitis. Does not appear consistent with a septic joint. She is moving the ankle and toes well. We will have her return if she worsens. This document was made in part using voice recognition software. While efforts are made to proofread this document, sound alike and grammatical errors may occur. Departure - Departure Disposition: 01 Home, Self Care Clinical Impression: Left foot pain Left ankle pain Qualifiers: Chronicity: acute Qualified Code(s): M25.572 - Pain in left ankle and joints of left foot Condition: Good Instructions: ED Acute Pain UKO Follow-Up: your,doctor in 3 days [Other] Comments: The cause of your symptoms is unclear today. Your foot does not appear infected at this time. It is not red or warm. Your x-rays do not show any acute abnormalities. We will trial you on a walking boot. Use your pain medications as prescribed by your doctor at home. You should be using your walker at home as well. Follow-up with your doctor for further care. Discharge Date/Time: 04/30/20 15:57
--- NOTE | 2020-04-30 14:23 | XRAY Report ---
PROCEDURE: Ankle 3 View LT INDICATIONS: swelling TECHNIQUE: 4 views of the ankle were acquired. COMPARISON: None. FINDINGS: Bones: No fractures or dislocations. Ankle mortise is normally aligned. No suspicious bony lesions . Posterior and plantar calcaneal spurring. Marked soft tissue swelling IMPRESSION: No definite fracture however follow-up radiographs in 10 days could be performed if the patient's symptoms do not improve to exclude occult fracture/assess for healing sclerosis. Marked soft tissue swelling. Reviewed by: Satinder Jackman MD on 04/30/2020 2:21 PM PDT Approved by: Satinder Jackman MD on 04/30/2020 2:21 PM PDT Station ID: [id number]
--- NOTE | 2020-04-30 15:06 | XRAY Report ---
PROCEDURE: Foot 3 View LT INDICATIONS: swelling, pain TECHNIQUE: 3 views of the foot were acquired. COMPARISON: 11/16/2018 FINDINGS: Bones: No acute fractures or dislocations. Degenerative changes of the dorsal left midfoot. Degenera tive changes of the first metatarsophalangeal joint. Likely postsurgical changes involving the proxim al phalanx of the right fifth toe, unchanged. There is a small plantar calcaneal spur. No suspicious bony lesions. Soft tissues: No tibiotalar joint effusion. Achilles tendon appears normal. Mild soft tissue swelli ng of the left foot. IMPRESSION: 1. Left foot soft tissue swelling without underlying fracture or dislocation. 2. Degenerative changes of the dorsal left midfoot and first metatarsophalangeal joint. 3. Very small plantar calcaneal enthesophyte/spur. 4. Stable appearance of likely post surgical changes involving the proximal phalanx of the left fifth toe. Reviewed by: Carlos Alfred MD on 04/30/2020 3:05 PM PDT Approved by: Carlos Alfred MD on 04/30/2020 3:05 PM PDT Station ID: [id number]
[2020-04-30 15:27] VITALS: BP 134/69
== END 2020-04-30 15:57 | disposition home or self-care (01) ==
LOC: EDUNIT# → ED 12:11
DX: M79.672 Pain in left foot (principal); M25.572 Pain in left ankle and joints of left foot; E11.9 Type 2 diabetes mellitus without complications; Z79.4 Long term (current) use of insulin; E66.01 Morbid (severe) obesity due to excess calories
CPT/HCPCS: 99283; 99284

== ENCOUNTER 2021-01-07 10:27 | Outpatient (CLI) | payer MEDICAID ==
--- NOTE | 2021-01-10 09:51 | Mammography Report ---
BILATERAL DIGITAL SCREENING MAMMOGRAM 3D/2D: 01/07/2021 CLINICAL: Routine screening. Baseline exam. Comparison is made to exams dated: 04/01/2015 mammogram, 03/23/2017 mammogram, 03/26/2014 mammogram, mammogram, and 09/20/2012 mammogram - [facility]. There are scattered fibroglandular chikis ments in both breasts. There is a 0.7 cm x 1.1 cm oval mass with a circumscribed margin in the right breast at 5 o'clock mid dle depth. There is a 0.2 cm x 0.4 cm asymmetry with an indistinct margin in the left breast at 10 o'clock middl e depth. No other significant masses or calcifications are seen in either breast. IMPRESSION: INCOMPLETE: NEEDS ADDITIONAL IMAGING EVALUATION The 0.7 cm x 1.1 cm oval mass in the right breast at 5 o'clock middle depth resembles a cyst and is i ndeterminate. Additional views with possible ultrasound are recommended. The 0.2 cm x 0.4 cm asymmetry in the left breast at 10 o'clock middle depth most likely is fibrogland ular tissue and is indeterminate. Additional views with possible ultrasound are recommended. This exam was interpreted at Station ID: [id number]. NOTE: For mammograms, a report in lay terms will be sent to the patient. Approximately 15% of breast malignancies will not be visualized mammographically. In the management of a palpable breast mass, a negative mammogram must not discourage biopsy of a clinically suspicious lesion. Electronically Signed By: Dajuan Emery acr/:01/07/2021 15:14:30 ACR BI-RADS Category 0: Incomplete 3340F PARENCHYMAL PATTERN: (A) - The breast(s) demonstrate(s) scattered fibroglandular densities. BI-RADS CATEGORY: (0) - 0 Mammo and [place] [id number] Immediate follow-up LATERALITY: (B)
== END 2021-01-07 10:28 | disposition home or self-care (01) ==
LOC: DI 10:27
PROVIDERS: ATTEND Family Medicine
DX: Z12.31 Encounter for screening mammogram for malignant neoplasm of breast (principal); R92.8 Other abnormal and inconclusive findings on diagnostic imaging of breast

== ENCOUNTER 2021-02-15 11:20 | Outpatient (CLI) | payer MEDICAID ==
--- NOTE | 2021-02-18 10:42 | Ultrasound Report ---
LIMITED ULTRASOUND OF LEFT BREAST: 02/15/2021 CLINICAL: Patient returns today to evaluate a focal asymmetry in the left breast. Comparison is made to exams dated: 02/15/2021 mammogram, 01/07/2021 mammogram - [facility], 03/23/2017 mammogram, 04/01/2015 mammogram, 03/26/2014 mammogram, and 03/21/2013 mammogram - [facility]. Real-time ultrasound of the left breast 10 o'clock region was performed. Lau scale images of the r eal-time examination were reviewed. There is a possible 0.2 cm x 0.4 cm focal asymmetry in the left breast at 10 o'clock middle depth see n only on comparison mammmograms. No significant abnormalities were seen sonographically in the left breast. IMPRESSION: PROBABLY BENIGN There is no sonographic abnormality seen in the left breast to correlate with possible focal asymmetr y seen on comparison mammograms which is likely focal dense fibroglandular breast tissue. This is pro bably benign. A follow-up left mammogram with possible left ultrasound in 6 months is recommended to demonstrate st ability. Findings and recommendations were conveyed to the patient during today's evaluation. This exam was interpreted at Station ID: [id number]. Electronically Signed By: Carlos Alfred M.D. aty/:02/15/2021 16:48:14 Ultrasound BI-RADS: 3 Probably benign BI-RADS CATEGORY: (3) - 3 Mammo and [place] [id number] 6 month follow-up LATERALITY: (L)
--- NOTE | 2021-02-18 10:42 | Mammography Report ---
BILATERAL DIGITAL DIAGNOSTIC MAMMOGRAM 3D/2D: 02/15/2021 CLINICAL: Patient returns today to evaluate asymmetries in bilateral breasts. Comparison is made to exams dated: 01/07/2021 mammogram - [facility], 03/23/2017 mamm ogram, 04/01/2015 mammogram, 03/26/2014 mammogram, 03/21/2013 mammogram, and 09/20/2012 mammogram - [facility]. There are scattered fibroglandular elements in both breasts. Redemonstration of previously described 0.7 cm x 1.1 cm oval mass with a circumscribed margin in the right breast at 5 o'clock middle depth. This is seen in additional views. This is not significantly changed. Redemonstration of previously described 0.2 cm x 0.4 cm asymmetry with an indistinct margin in the le ft breast at 10 o'clock middle depth. This is seen in additional views. This is not significantly c hanged. No other significant masses or calcifications are seen in either breast. IMPRESSION: INCOMPLETE: NEEDS ADDITIONAL IMAGING EVALUATION The 0.7 cm x 1.1 cm oval mass in the right breast at 5 o'clock middle depth resembles a cyst and is i ndeterminate. An ultrasound is recommended for further evaluation and is scheduled to immediately fol low this examination. The 0.2 cm x 0.4 cm asymmetry in the left breast at 10 o'clock middle depth most likely is fibrogland ular tissue and is indeterminate. An ultrasound is recommended for further evaluation and is schedule d to immediately follow this examination. This exam was interpreted at Station ID: [id number]. NOTE: For mammograms, a report in lay terms will be sent to the patient. Approximately 15% of breast malignancies will not be visualized mammographically. In the management of a palpable breast mass, a negative mammogram must not discourage biopsy of a clinically suspicious lesion. Electronically Signed By: Carlos Alfred M.D. aty/:02/18/2021 10:34:32 ACR BI-RADS Category 0: Incomplete 3340F PARENCHYMAL PATTERN: (A) - The breast(s) demonstrate(s) scattered fibroglandular densities. BI-RADS CATEGORY: (0) - 0 Ultrasound [id number] Immediate follow-up LATERALITY: (B)
--- NOTE | 2021-02-18 10:42 | Ultrasound Report ---
LIMITED ULTRASOUND OF RIGHT BREAST AND AXILLA: 02/15/2021 CLINICAL: Patient returns today to evaluate a focal asymmetry in the right breast. Comparison is made to exams dated: 02/15/2021 mammogram, 01/07/2021 mammogram - [facility], 03/23/2017 mammogram, 04/01/2015 mammogram, 03/26/2014 mammogram, and 03/21/2013 mammogram - [facility]. Color flow, real-time, and continuous wave Doppler ultrasound of the right breast 3 o'clock, and axil la regions were performed. Lau scale images of the real-time examination were reviewed. There is a 1.1 cm x 0.5 cm x 0.8 cm wider than tall oval mass with a few angular margins in the right breast at 3 o'clock middle depth 4 cm from the nipple. This oval mass is hypoechoic. This abnormal ity appears more prominent mammographically. Color flow imaging demonstrates that there is no vascul arity present. There are also lymph nodes with eccentric cortical thickening in the right axilla. This lymph node i s hypoechoic with fatty hilum. IMPRESSION: SUSPICIOUS OF MALIGNANCY The 1.1 cm x 0.5 cm x 0.8 cm wider than tall oval mass in the right breast at 3 o'clock middle depth resembles a solid mass or a fibroadenoma and is at a low suspicion for malignancy. An ultrasound heriberto ded biopsy is recommended. The lymph nodes with eccentric cortical thickening in the right axilla is at a low suspicion for rogelio gnancy. An ultrasound guided biopsy is recommended. Findings and recommendations were discussed with the patient by Dr. Fajardo during today's examination . This exam was interpreted at Station ID: [id number]. Electronically Signed By: Carlos Alfred M.D. aty/:02/15/2021 16:44:47 Ultrasound BI-RADS: 4a Low suspicion for malignancy BI-RADS CATEGORY: (4a) - Low Susp None [id number] Immediate follow-up LATERALITY: ()
== END 2021-02-15 11:21 | disposition home or self-care (01) ==
LOC: DI 11:20
PROVIDERS: ATTEND Family Medicine
DX: R92.8 Other abnormal and inconclusive findings on diagnostic imaging of breast (principal); N63.14 Unspecified lump in the right breast, lower inner quadrant; N64.89 Other specified disorders of breast

== ENCOUNTER 2021-02-21 10:27 | Outpatient (CLI) | payer MEDICAID ==
[2021-02-21] MEDS ORDERED: LIDOCAINE MPF 1%-EPI 1:200000 30 ML VIAL ONE (10:38)
[2021-02-21] MEDS ORDERED: BUFFERED LIDOCAINE 10 ML SYRINGE ONE (10:38)
[2021-02-21] MEDS ORDERED: BUFFERED LIDOCAINE 10 ML SYRINGE IU ONE (13:34)
[2021-02-21] MEDS ORDERED: LIDOCAINE MPF 1%-EPI 1:200000 30 ML VIAL SUBQ ONE (13:40)
--- NOTE | 2021-02-22 08:30 | Mammography Report ---
UNILATERAL RIGHT DIGITAL DIAGNOSTIC MAMMOGRAM 3D/2D: 02/21/2021 CLINICAL: Post right breast ultrasound biopsy clip placement imaging. Comparison is made to exams dated: 02/15/2021 ultrasound, 02/15/2021 ultrasound, 02/15/2021 mammogram, 01/07/2021 mammogram - [facility], 03/23/2017 mammogram, and 04/01/2015 mammogram - [facility]. There are scattered fibroglandular elements in right breast. There are biopsy clips at 3 o'clock and in the right axilla. IMPRESSION: POST PROCEDURE MAMMOGRAM FOR MARKER PLACEMENT Post biopsy clips are noted in the right axilla and right breast at 3 o'clock. Future imaging is marleny mmended as follows: 08/18/2021 left mammogram and an ultrasound. This exam was interpreted at Station ID: [id number]. NOTE: For mammograms, a report in lay terms will be sent to the patient. Approximately 15% of breast malignancies will not be visualized mammographically. In the management of a palpable breast mass, a negative mammogram must not discourage biopsy of a clinically suspicious lesion. Electronically Signed By: Sahara Long M.D. [facility]/:02/21/2021 16:53:32 ACR BI-RADS Category Post-procedure mammogram for marker placement PARENCHYMAL PATTERN: (A) - The breast(s) demonstrate(s) scattered fibroglandular densities. BI-RADS CATEGORY: () - Unspecified - other recall n/a LATERALITY: (B)
--- NOTE | 2021-02-24 05:52 | Ultrasound Report ---
ULTRASOUND GUIDED BIOPSY RIGHT BREAST WITH MARKING DEVICE INSERTED: 02/21/2021 CLINICAL: Right breast mass. PATIENT CONSENT: Risks (minor bleeding, infection, vasovagal reaction and repeat procedure), benefits and alternatives were explained to the patient and written informed consent was obtained. Correlation is made to exams dated: 02/15/2021 ultrasound, 02/15/2021 mammogram, 01/07/2021 mammogram - [facility], 03/23/2017 mammogram, 04/01/2015 mammogram, and 03/26/2014 mammogram - [facility]. An ultrasound guided biopsy using real-time ultrasound was performed for the irregular shaped lymph n ode located in the right axilla. This was described on the previous mammography and ultrasound repor ts. The skin was prepped in the usual manner. Topical and local anesthetic was administered to the access site. The abnormality was approached from the lateral aspect. A biopsy needle was placed adj acent to the abnormality under ultrasound guidance. Once the needle was documented to be in the maral ect location, a specimen was obtained using a BARD biopsy device. A titanium clip was inserted into the biopsy cavity. A sterile dressing was applied to the access site. The specimen was sent to the laboratory for pathological analysis. IMPRESSION: ULTRASOUND GUIDED BIOPSY BENIGN Ultrasound guided biopsy of the lymph node in the right axillal was successful. Pathology indicates benign lymph node (LN). Pathology results are concordant with ultrasound findings. Return to annual mammogram screening schedule is recommended on the right. Future imaging is recommended as follows: 08/18/2021 left mammogram and an ultrasound. This exam was interpreted at Station ID: [id number]. Sahara Fonseca M.D. [facility],ddp/:02/23/2021 14:21:24 BI-RADS CATEGORY: () - Mammogram [id number] return to screening LATERALITY: (B)
--- NOTE | 2021-02-24 05:52 | Ultrasound Report ---
ULTRASOUND GUIDED BIOPSY RIGHT BREAST USING VACUUM DEVICE WITH MARKING DEVICE INSERTED: 02/21/2021 CLINICAL: Right axillary node biopsy. PATIENT CONSENT: Risks (minor bleeding, infection, vasovagal reaction and repeat procedure), benefits and alternatives were explained to the patient and written informed consent was obtained. Correlation is made to exams dated: 02/15/2021 ultrasound, 02/15/2021 mammogram, 01/07/2021 mammogram - [facility], 03/23/2017 mammogram, 04/01/2015 mammogram, and 03/26/2014 mammogram - [facility]. An ultrasound guided biopsy using real-time ultrasound was performed for the indistinct irregular sha ped mass located in the right breast at 3 o'cloc. This was described on the previous mammography and ultrasound reports. The skin was prepped in the usual manner. Topical and local anesthetic was adm inistered to the access site. The abnormality was approached from the lateral aspect. A biopsy need le was placed adjacent to the abnormality under ultrasound guidance. Once the needle was documented to be in the correct location, a specimen was obtained using the Mammotome biopsy system. A titanium clip was inserted into the biopsy cavity. A sterile dressing was applied to the access site. The s pecimen was sent to the laboratory for pathological analysis. IMPRESSION: ULTRASOUND GUIDED BIOPSY BENIGN Ultrasound guided biopsy of the mass in the right breast at 3 o'clock was successful. Pathology james cates benign fibroadenoma (FA). Pathology results are concordant with mammography and ultrasound fin dings. Return to annual mammogram screening schedule is recommended for the right breast. Future imaging is recommended as follows: 08/18/2021 left mammogram and possible ultrasound. This exam was interpreted at Station ID: [id number]. Sahara Fonseca M.D. [facility],ddp/:02/23/2021 14:11:53 BI-RADS CATEGORY: () - Mammogram [id number] return to screening LATERALITY: (B)
== END 2021-02-21 10:28 | disposition home or self-care (01) ==
LOC: DI 10:27
PROVIDERS: ATTEND Family Medicine
DX: R92.8 Other abnormal and inconclusive findings on diagnostic imaging of breast (principal); D24.1 Benign neoplasm of right breast
CPT/HCPCS: 19083; 38505

== ENCOUNTER 2021-08-10 19:24 | Outpatient (CLI) | payer MEDICAID | END 2021-08-10 19:25 | disposition EMS.NT | LOC: EMS 19:24 | DX: Z53.9 Procedure and treatment not carried out, unspecified reason (principal) ==

== ENCOUNTER 2021-12-14 14:08 | Outpatient (CLI) | payer MEDICAID | END 2021-12-14 14:09 | disposition EMS.NT | LOC: EMS 14:08 | DX: R45.89 Other symptoms and signs involving emotional state (principal); M25.561 Pain in right knee; Z72.89 Other problems related to lifestyle ==

== ENCOUNTER 2021-12-20 16:40 | Outpatient (CLI) | payer MEDICAID | END 2021-12-20 16:41 | disposition short-term general hospital (02) | LOC: EMS 16:40 | DX: M79.661 Pain in right lower leg (principal) | CPT/HCPCS: A0425; A0429 ==

== ENCOUNTER 2022-02-03 18:49 | Outpatient (CLI) | payer MEDICAID | END 2022-02-03 18:50 | disposition critical access hospital (66) | LOC: EMS 18:49 | DX: M54.9 Dorsalgia, unspecified (principal); R45.851 Suicidal ideations; Z63.4 Disappearance and death of family member; Z59.89 Other problems related to housing and economic circumstances | CPT/HCPCS: A0425; A0429; A0999 ==

== ENCOUNTER 2022-02-03 19:09 | Emergency (ER) | payer MEDICAID ==
--- OUTSIDE RECORDS SUMMARY | 2022-02-03 20:14 | EXTERNAL MEDICAL SUMMARY RPT | Continuity of Care Document ---
:1960 Author Organization [place] Address [address] [id number] Phone Allergies and Intolerances date description facility type (no date) No Known Drug Allergies [facility] (unkn own) Encounters No information. Functional Status No information. Immunizations No information. Medications date description facility [id number] Oxycodone Hydrochloride 5 MG Oral [facility] [id number]+0000 Oxycodone Hydrochloride 5 MG Oral [facility] [id number]+0000 Oxycodone Hydrochloride 5 MG Oral [facility] [id number]+0000 Diazepam 5 MG Oral [facility] Problems No information. Procedures date description facility [id number] [facility] [id number] [facility] [id number] [facility] [id number] [facility] [id number]+[address] [facility] [id number]+[address] [facility] [id number]+[address] [facility] [id number]+[address] [facility] [id number]+[address] [facility] [id number]+[address] [facility] [id number]+0000 [facility] Results/Labs test date author facility value unit interpret ation Result panel 1 (unknown) (no (unknown) (unknown) (no value) (units (unk nown) date) unknown) (unknown) (no (unknown) (unknown) [facility] (units (unknown) date) Medicine unknown) (unknown) (no (unknown) (unknown) CHERRY Bowens (units ( unknown) date) [id number] unknown) (unknown) (no (unknown) (unknown) Care Management (units (unknown) date) Visit unknown) (unknown) (no (unknown) (unknown) Draft (units (unkno wn) date) unknown) (unknown) (no (unknown) (unknown) (no value) (units (unk nown) date) unknown) (unknown) (no (unknown) (unknown) [id number] (units (unkno wn) date) unknown) (unknown) (no (unknown) (unknown) 11/16/21 (units (unkno wn) date) unknown) (unknown) (no (unknown) (unknown) 1. Little (units (unkn own) date) interest or unknown) pleasure in doing things: several days (unknown) (no (unknown) (unknown) 2. Feeling down, (units (unknown) date) depressed, or unknown) hopeless: several days (unknown) (no (unknown) (unknown) 3. Trouble (units (unk nown) date) falling or unknown) staying asleep, or sleeping too much: several days (unknown) (no (unknown) (unknown) 4. Feeling tired (units (unknown) date) or having little unknown) energy: several days (unknown) (no (unknown) (unknown) 5. Poor appetite (units (unknown) date) or overeating: unknown) several days (unknown) (no (unknown) (unknown) 6. Feeling bad (units (unknown) date) about yourself - unknown) or that you are a failure or have let yourself (unknown) (no (unknown) (unknown) 7. Trouble (units (unk nown) date) concentrating on unknown) things, such as reading the newspaper or watching (unknown) (no (unknown) (unknown) 8. Moving or (units (u nknown) date) speaking so unknown) slowly that other people could have noticed? - Or the (unknown) (no (unknown) (unknown) 9. Thoughts that (units (unknown) date) you would be unknown) better off or of hurting yourself in some (unknown) (no (unknown) (unknown) Age/Sex: 61 / F (units (unknown) date) Date of unknown) Service: (unknown) (no (unknown) (unknown) Attending Dr: (units ( unknown) date) Tiffany PERDOMO unknown) (unknown) (no (unknown) (unknown) Becoming easily (units (unknown) date) annoyed or unknown) irritable: 1 = Several days (unknown) (no (unknown) (unknown) Being so (units (unkno wn) date) restless that it unknown) is hard to sit still: 0 = Not at all (unknown) (no (unknown) (unknown) : 1960 (units (unknown) date) Acct:[id number] unknown) (unknown) (no (unknown) (unknown) Dept at (units (unkno wn) date) . unknown) (unknown) (no (unknown) (unknown) Documented By: (units (unknown) date) Tiffany Hawkins SELECTOR PACKER unknown) 11/16/211815 (unknown) (no (unknown) (unknown) Feeling afraid (units (unknown) date) as if something unknown) awful might happen: 3 = Nearly every day (unknown) (no (unknown) (unknown) Feeling nervous, (units (unknown) date) anxious, or on unknown) edge: 1 = Several days (unknown) (no (unknown) (unknown) SHAILESH-7 (units (unkno wn) date) unknown) (unknown) (no (unknown) (unknown) Loc: [facility] (units (unkno wn) date) unknown) (unknown) (no (unknown) (unknown) Not being able (units (unknown) date) to stop or unknown) control worryin = Nearly every day (unknown) (no (unknown) (unknown) Over the last 2 (units (unknown) date) weeks, how often unknown) have you been bothered by any of the following (unknown) (no (unknown) (unknown) PHQ-9 (units (unkno wn) date) unknown) (unknown) (no (unknown) (unknown) Patient: (units (unkno wn) date) Bere Lee unknown) MR#: [id number] (unknown) (no (unknown) (unknown) Questionnaires (units (unknown) date) unknown) (unknown) (no (unknown) (unknown) Signed By: (units (unk nown) date) unknown) (unknown) (no (unknown) (unknown) Source: (units (unkno wn) date) Developed by unknown) Armen Erickson, Becki Gillespie, Gurinder Duke (unknown) (no (unknown) (unknown) This note may (units ( unknown) date) have been all or unknown) partially generated using voice recognition (unknown) (no (unknown) (unknown) Total SHAILESH-7 (units (un known) date) score (0-4 unknown) normal; 5-9 mild; 10-14 moderate; 15-21 severe): 12 (unknown) (no (unknown) (unknown) Total score: 8 (units (unknown) date) unknown) (unknown) (no (unknown) (unknown) Trouble (units (unkno wn) date) relaxin = unknown) Several days (unknown) (no (unknown) (unknown) Worrying too (units (u nknown) date) much about unknown) different things: 3 = Nearly every day (unknown) (no (unknown) (unknown) and colleagues, (units (unknown) date) with an unknown) educational carole from [employer]. (unknown) (no (unknown) (unknown) and your family (units (unknown) date) down: several unknown) days (unknown) (no (unknown) (unknown) have occurred. (units (unknown) date) If there are any unknown) questions, please contact the Medical Records (unknown) (no (unknown) (unknown) may occur. (units (unk nown) date) Occasional unknown) wrong-word or 'sound-alike' substitutions may have (unknown) (no (unknown) (unknown) more than usual: (units (unknown) date) several days unknown) (unknown) (no (unknown) (unknown) occurred due to (units (unknown) date) the inherent unknown) limitations of voice recognition software. Please (unknown) (no (unknown) (unknown) opposite - being (units (unknown) date) so fidgety or unknown) restless that you have been moving around a lot (unknown) (no (unknown) (unknown) problems? (units (unkn own) date) unknown) (unknown) (no (unknown) (unknown) read the note (units ( unknown) date) carefully and unknown) recognize, using context, where these substitutions (unknown) (no (unknown) (unknown) software. (units (unkn own) date) Although every unknown) effort is made to edit content, vacuum spindle sander errors (unknown) (no (unknown) (unknown) television: (units (un known) date) several days unknown) (unknown) (no (unknown) (unknown) way: not at all (units (unknown) date) unknown) Result panel 2 (unknown) (no (unknown) (unknown) (no value) (units (unk nown) date) unknown) (unknown) (no (unknown) (unknown) Qualifiers: (units (un known) date) unknown) (unknown) (no (unknown) (unknown) Status: Chronic (units (unknown) date) unknown) (unknown) (no (unknown) (unknown) 11/17/21 1618 (units ( unknown) date) unknown) (unknown) (no (unknown) (unknown) [facility] (units (unknown) date) Medicine unknown) (unknown) (no (unknown) (unknown) [place] (units ( unknown) date) [id number] unknown) (unknown) (no (unknown) (unknown) Care Management (units (unknown) date) Visit unknown) (unknown) (no (unknown) (unknown) Depression Type: (units (unknown) date) major depressive unknown) disorder Major depression recurrence: (unknown) (no (unknown) (unknown) Signed (units (unkno wn) date) unknown) (unknown) (no (unknown) (unknown) (no value) (units (unk nown) date) unknown) (unknown) (no (unknown) (unknown) (1) Anxiety: (units (u nknown) date) unknown) (unknown) (no (unknown) (unknown) (2) Depression: (units (unknown) date) unknown) (unknown) (no (unknown) (unknown) [id number] (units (unkno wn) date) unknown) (unknown) (no (unknown) (unknown) 11/16/21 (units (unkno wn) date) unknown) (unknown) (no (unknown) (unknown) 1. Little (units (unkn own) date) interest or unknown) pleasure in doing things: several days (unknown) (no (unknown) (unknown) 1. To talk about (units (unknown) date) challenges, unknown) particularly loss of son (unknown) (no (unknown) (unknown) 2. Feeling down, (units (unknown) date) depressed, or unknown) hopeless: several days (unknown) (no (unknown) (unknown) 3. Trouble (units (unk nown) date) falling or unknown) staying asleep, or sleeping too much: several days (unknown) (no (unknown) (unknown) 4. Feeling tired (units (unknown) date) or having little unknown) energy: several days (unknown) (no (unknown) (unknown) 5. Poor appetite (units (unknown) date) or overeating: unknown) several days (unknown) (no (unknown) (unknown) 6. Feeling bad (units (unknown) date) about yourself - unknown) or that you are a failure or have let yourself (unknown) (no (unknown) (unknown) 60 minutes (units (unk nown) date) unknown) (unknown) (no (unknown) (unknown) 7. Trouble (units (unk nown) date) concentrating on unknown) things, such as reading the newspaper or watching (unknown) (no (unknown) (unknown) 8. Moving or (units (u nknown) date) speaking so unknown) slowly that other people could have noticed? - Or the (unknown) (no (unknown) (unknown) 9. Thoughts that (units (unknown) date) you would be unknown) better off or of hurting yourself in some (unknown) (no (unknown) (unknown) Age/Sex: 61 / F (units (unknown) date) Date of unknown) Service: (unknown) (no (unknown) (unknown) Attending Dr: (units ( unknown) date) Tiffany PERDOMO unknown) (unknown) (no (unknown) (unknown) BHIP Assessment (units (unknown) date) + Plan unknown) (unknown) (no (unknown) (unknown) BHIP Care (units (unkn own) date) [employer]urb[employer] Engineer Follow-Up unknown) (unknown) (no (unknown) (unknown) BHIP Goal #1: (units ( unknown) date) Address unknown) challenges, particularly hx of son's (unknown) (no (unknown) (unknown) BHIP Goal (units (unkn own) date) Progress#1: 4 unknown) (Engaged in counseling and problem solving) (unknown) (no (unknown) (unknown) Becoming easily (units (unknown) date) annoyed or unknown) irritable: 1 = Several days (unknown) (no (unknown) (unknown) Behavioral (units (unk nown) date) Activation, unknown) Motivational Interviewing, Problem Solving Treatment, (unknown) (no (unknown) (unknown) Being so (units (unkno wn) date) restless that it unknown) is hard to sit still: 0 = Not at all (unknown) (no (unknown) (unknown) Case Formulation (units (unknown) date) unknown) (unknown) (no (unknown) (unknown) : 1960 (units (unknown) date) Acct:[id number] unknown) (unknown) (no (unknown) (unknown) Dept at (units (unkno wn) date) . 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 Discussed (unknown) (no (unknown) (unknown) Interventions (units ( unknown) date) unknown) (unknown) (no (unknown) (unknown) Loc: [facility] (units (unkno wn) date) unknown) (unknown) (no (unknown) (unknown) Met with patient (units (unknown) date) for the first unknown) time since initial appointment. Reviewed (unknown) (no (unknown) (unknown) Mindfulness and (units (unknown) date) Other (Connect unknown) with community counseling if she chooses) (unknown) (no (unknown) (unknown) Next BHIP (units (unkn own) date) appointments - 4 unknown) more TBD by BHIP Admin (unknown) (no (unknown) (unknown) Not being able (units (unknown) date) to stop or unknown) control worryin = Nearly every day (unknown) (no (unknown) (unknown) Over the last 2 (units (unknown) date) weeks, how often unknown) have you been bothered by any of the following (unknown) (no (unknown) (unknown) PHQ-9 (units (unkno wn) date) unknown) (unknown) (no (unknown) (unknown) Patient reported (units (unknown) date) that she is still unknown) waiting for an apartment to open up so that (unknown) (no (unknown) (unknown) Patient was less (units (unknown) date) tearful today. unknown) (unknown) (no (unknown) (unknown) Patient with (units (u nknown) date) symptoms of unknown) depression and anxiety in the context of grief/loss of (unknown) (no (unknown) (unknown) Patient's Goals: (units (unknown) date) unknown) (unknown) (no (unknown) (unknown) Patient: (units (unkno wn) date) Bere Lee unknown) MR#: [id number] (unknown) (no (unknown) (unknown) Plan (units (unkno wn) date) unknown) (unknown) (no (unknown) (unknown) Presenting (units (unk nown) date) Problem Update unknown) (unknown) (no (unknown) (unknown) Questionnaires (units (unknown) date) unknown) (unknown) (no (unknown) (unknown) Signed By: (units (unk nown) date) <Electronically unknown) signed by CONOR Rodríguez> (unknown) (no (unknown) (unknown) Source: (units (unkno wn) date) Developed by unknown) Armen Erickson, Becki Gillespie, Gurinder Duke (unknown) (no (unknown) (unknown) This note may (units ( unknown) date) have been all or unknown) partially generated using voice recognition (unknown) (no (unknown) (unknown) Time Spent (units (unk nown) date) unknown) (unknown) (no (unknown) (unknown) Time Spent: (units (un known) date) unknown) (unknown) (no (unknown) (unknown) Total SHAILESH-7 (units (un known) date) score (0-4 unknown) normal; 5-9 mild; 10-14 moderate; 15-21 severe): 12 (unknown) (no (unknown) (unknown) Total score: 8 (units (unknown) date) unknown) (unknown) (no (unknown) (unknown) Trouble (units (unkno wn) date) relaxin = unknown) Several days (unknown) (no (unknown) (unknown) Worrying too (units (u nknown) date) much about unknown) different things: 3 = Nearly every day (unknown) (no (unknown) (unknown) and colleagues, (units (unknown) date) with an unknown) educational carole from [employer]. (unknown) (no (unknown) (unknown) and development (units (unknown) date) of tools to unknown) address symptoms. (unknown) (no (unknown) (unknown) and your family (units (unknown) date) down: several unknown) days (unknown) (no (unknown) (unknown) at this time. (units (u nknown) date) Did say that one unknown) of the staff helping with housing has offered to (unknown) (no (unknown) (unknown) depressed or (units (u nknown) date) lonely. Took unknown) Crisis Line number, but declined engagement with MOT (unknown) (no (unknown) (unknown) have occurred. (units (unknown) date) If there are any unknown) questions, please contact the Medical Records (unknown) (no (unknown) (unknown) may occur. (units (unk nown) date) Occasional unknown) wrong-word or 'sound-alike' substitutions may have (unknown) (no (unknown) (unknown) more than usual: (units (unknown) date) several days unknown) (unknown) (no (unknown) (unknown) occurred due to (units (unknown) date) the inherent unknown) limitations of voice recognition software. Please (unknown) (no (unknown) (unknown) opposite - being (units (unknown) date) so fidgety or unknown) restless that you have been moving around a lot (unknown) (no (unknown) (unknown) patient's goals, (units (unknown) date) which are still unknown) accurate (unknown) (no (unknown) (unknown) problems? (units (unkn own) date) unknown) (unknown) (no (unknown) (unknown) provide a (units (unkn own) date) counselor. She unknown) initially declined a visit, but said she would call (unknown) (no (unknown) (unknown) read the note (units ( unknown) date) carefully and unknown) recognize, using context, where these substitutions (unknown) (no (unknown) (unknown) recurrent (units (unkn own) date) Active/Remission unknown) status: in partial remission Qualified Code(s): (unknown) (no (unknown) (unknown) she can move (units (u nknown) date) from her current unknown) place, which is 'falling apart'. Said that the (unknown) (no (unknown) (unknown) she said that (units ( unknown) date) she often calls unknown) the police, 'who are my friends' when she is (unknown) (no (unknown) (unknown) software. (units (unkn own) date) Although every unknown) effort is made to edit content, vacuum spindle sander errors (unknown) (no (unknown) (unknown) son in 2008 when (units (unknown) date) he was 13 years unknown) old. Will benefit from supportive counseling (unknown) (no (unknown) (unknown) television: (units (un known) date) several days unknown) (unknown) (no (unknown) (unknown) tomorrow to (units (un known) date) schedule this. unknown) (unknown) (no (unknown) (unknown) utilizing the (units ( unknown) date) Crisis Line and unknown) offered to set up Mobile Outreach Team (MOT), as (unknown) (no (unknown) (unknown) way: not at all (units (unknown) date) unknown) Result panel 3 (unknown) (no (unknown) (unknown) (no value) (units (unk nown) date) unknown) (unknown) (no (unknown) (unknown) Qualifiers: (units (un known) date) unknown) (unknown) (no (unknown) (unknown) Status: Chronic (units (unknown) date) unknown) (unknown) (no (unknown) (unknown) (no value) (units (unk nown) date) unknown) (unknown) (no (unknown) (unknown) 12/01/21 1641 (units ( unknown) date) unknown) (unknown) (no (unknown) (unknown) [facility] (units (unknown) date) Medicine unknown) (unknown) (no (unknown) (unknown) [place], [place] (units ( unknown) date) [id number] unknown) (unknown) (no (unknown) (unknown) Care Management (units (unknown) date) Visit unknown) (unknown) (no (unknown) (unknown) Depression Type: (units (unknown) date) major depressive unknown) disorder Major depression recurrence: (unknown) (no (unknown) (unknown) Signed (units (unkno wn) date) unknown) (unknown) (no (unknown) (unknown) (no value) (units (unk nown) date) unknown) (unknown) (no (unknown) (unknown) BHIP Monthly (units (u nknown) date) Summary: November, unknown) 2021, 60 minutes (unknown) (no (unknown) (unknown) (1) Anxiety: (units (u nknown) date) unknown) (unknown) (no (unknown) (unknown) (2) Depression: (units (unknown) date) unknown) (unknown) (no (unknown) (unknown) - Consideration (units (unknown) date) in weekly unknown) caseload review with psychiatric oim consultant and (unknown) (no (unknown) (unknown) - Entering (units (unkn own) date) patients into a unknown) registry for tracking patient follow-up and progress; (unknown) (no (unknown) (unknown) - Initial (units (unkno wn) date) assessment, unknown) including administration of validated scales and resulting (unknown) (no (unknown) (unknown) - Ongoing (units (unkn own) date) collaboration and unknown) coordination with treating providers; and (unknown) (no (unknown) (unknown) - Outreach and (units (unknown) date) engagement of unknown) patients; (unknown) (no (unknown) (unknown) - Provision of (units (unknown) date) brief unknown) interventions using evidence-based treatments such as (unknown) (no (unknown) (unknown) - Relapse (units (unkn own) date) prevention unknown) planning and preparation for discharge from active (unknown) (no (unknown) (unknown) - Tracking (units () date) patient follow-up unknown) and progress using validated rating scales; (unknown) (no (unknown) (unknown) [id number] (units (o wn) date) unknown) (unknown) (no (unknown) (unknown) 12/01/21 (units (o wn) date) unknown) (unknown) (no (unknown) (unknown) Age/Sex: 61 / F (units (unknown) date) Date of unknown) Service: (unknown) (no (unknown) (unknown) Attending Dr: (units ( unknown) date) Tiffany PERDOMO unknown) (unknown) (no (unknown) (unknown) BH Assessment (units (unknown) date) + Plan unknown) (unknown) (no (unknown) (unknown) : 1960 (units (unknown) date) Acct:[id number] unknown) (unknown) (no (unknown) (unknown) Dept at (units ( wn) date) . 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 (unknown) (no (unknown) (unknown) Patient: (units (o wn) date) Bere Lee unknown) MR#: [id number] (unknown) (no (unknown) (unknown) Signed By: (units (unk nown) date) <Electronically unknown) signed by CONOR Rodríguez> (unknown) (no (unknown) (unknown) This note may (units ( unknown) date) have been all or unknown) partially generated using voice recognition (unknown) (no (unknown) (unknown) activities; (units (un known) date) unknown) (unknown) (no (unknown) (unknown) behavioral (units (unk nown) date) activation, unknown) problem-solving treatment, and other focused treatment (unknown) (no (unknown) (unknown) following (units (unkn own) date) elements unknown) documented individually as appropriate: (unknown) (no (unknown) (unknown) have occurred. (units (unknown) date) If there are any unknown) questions, please contact the Medical Records (unknown) (no (unknown) (unknown) in a treatment (units (unknown) date) plan; unknown) (unknown) (no (unknown) (unknown) may occur. (units (unk nown) date) Occasional unknown) wrong-word or 'sound-alike' substitutions may have (unknown) (no (unknown) (unknown) modifications to (units (unknown) date) treatment, if unknown) recommended; (unknown) (no (unknown) (unknown) occurred due to (units (unknown) date) the inherent unknown) limitations of voice recognition software. Please (unknown) (no (unknown) (unknown) psychiatric (units (un known) date) oim consultant, and unknown) directed by the treating provider, with the (unknown) (no (unknown) (unknown) read the note (units ( unknown) date) carefully and unknown) recognize, using context, where these substitutions (unknown) (no (unknown) (unknown) recurrent (units (unkn own) date) Active/Remission unknown) status: in partial remission Qualified Code(s): (unknown) (no (unknown) (unknown) software. (units (unkn own) date) Although every unknown) effort is made to edit content, vacuum spindle sander errors (unknown) (no (unknown) (unknown) treatment. (units (unk nown) date) unknown) Result panel 4 (unknown) (no (unknown) (unknown) (no value) (units (unk nown) date) unknown) (unknown) (no (unknown) (unknown) [address] [place] [address] (units (unknown) date) unknown) (unknown) (no (unknown) (unknown) [place], [place] (units ( unknown) date) [address] unknown) (unknown) (no (unknown) (unknown) CT Scan Report (units (unknown) date) unknown) (unknown) (no (unknown) (unknown) [facility] (units (unknown) date) unknown) (unknown) (no (unknown) (unknown) Signed (units (unkno wn) date) unknown) (unknown) (no (unknown) (unknown) XRay Report (units (un known) date) unknown) (unknown) (no (unknown) (unknown) (no value) (units (unk nown) date) unknown) (unknown) (no (unknown) (unknown) 12/20/21 (units (unkno wn) date) unknown) (unknown) (no (unknown) (unknown) Approved by: (units (u nknown) date) bret Romero M.D. on 12/20/2021 at 17:05 (unknown) (no (unknown) (unknown) Approved by: (units (u nknown) date) Sahara Long M.D. unknown) on 12/20/2021 at 18:38 (unknown) (no (unknown) (unknown)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 (units (unknown) date) complaints. unknown) (unknown) (no (unknown) (unknown) oxycodone 5 mg (units (unknown) date) tablet 5 mg PO QID unknown) PRN #150 tab 10/12/21 (unknown) (no (unknown) (unknown) pain, cough or (units (unknown) date) dyspnea. She has unknown) no GI or complaints. She has no other (unknown) (no (unknown) (unknown) simvastatin 20 mg (units (unknown) date) tablet 20 mg PO unknown) QDAY #90 tab 07/04/19 (unknown) (no (unknown) (unknown) throat, no sinus (units (unknown) date) pressure. She has unknown) neck pain or back pain. She denies chest Result panel 6 (unknown) (no date) (unknown) (unknown) Negative (units (unkn own) unknown) (unknown) (no date) (unknown) (unknown) Normal (units (unkn own) unknown) (unknown) (no date) (unknown) (unknown) Positive (units (unkn own) unknown) Result panel 7 (unknown) (no date) (unknown) (unknown) 0-1/HPF (units (unkn own) unknown) (unknown) (no date) (unknown) (unknown) 0-1/HPF (units (unkn own) unknown) (unknown) (no date) (unknown) (unknown) 1-5 /HPF (units (unkn own) unknown) (unknown) (no date) (unknown) (unknown) Cult Not (units (unkn own) Indicated unknown) (unknown) (no date) (unknown) (unknown) None Seen (units (unk nown) unknown) Result panel 8 (unknown) (no date) (unknown) (unknown) 0.8 % (unkn own) (unknown) (no date) (unknown) (unknown) 100 /uL (unkn own) (unknown) (no date) (unknown) (unknown) 11.5 g/dL (unkn own) (unknown) (no date) (unknown) (unknown) 13.8 % (unkn own) (unknown) (no date) (unknown) (unknown) 1400 /uL (unkn own) (unknown) (no date) (unknown) (unknown) 15.0 % (unkn own) (unknown) (no date) (unknown) (unknown) 2.0 % (unkn own) (unknown) (no date) (unknown) (unknown) 200 /uL (unkn own) (unknown) (no date) (unknown) (unknown) 232 X10 3/uL (unkn own) (unknown) (no date) (unknown) (unknown) 29.2 PG (unkn own) (unknown) (no date) (unknown) (unknown) 3.94 X10 6/uL (unkn own) (unknown) (no date) (unknown) (unknown) 32.4 % (unkn own) (unknown) (no date) (unknown) (unknown) 35.5 % (unkn own) (unknown) (no date) (unknown) (unknown) 3500 /uL (unkn own) (unknown) (no date) (unknown) (unknown) 36.2 % (unkn own) (unknown) (no date) (unknown) (unknown) 4600 /uL (unkn own) (unknown) (no date) (unknown) (unknown) 47.2 % (unkn own) (unknown) (no date) (unknown) (unknown) 9.8 X10 3/uL (unkn own) (unknown) (no date) (unknown) (unknown) 90.1 fL (unkn own) Result panel 9 (unknown) (no date) (unknown) (unknown) > 60 mL/min (unkn own) (unknown) (no date) (unknown) (unknown) 0.6 mg/dL (unkn own) (unknown) (no date) (unknown) (unknown) 1.04 mg/dL (unkn own) (unknown) (no date) (unknown) (unknown) 1.4 (units unknown) (unknown) (unknown) (no date) (unknown) (unknown) 111 mg/dL (unkn own) (unknown) (no date) (unknown) (unknown) 134 mmol/L (unkn own) (unknown) (no date) (unknown) (unknown) 17.3 (units unknown) (unknown) (unknown) (no date) (unknown) (unknown) 18 mg/dL (unkn own) (unknown) (no date) (unknown) (unknown) 23 mmol/L (unkn own) (unknown) (no date) (unknown) (unknown) 274 mg/dL (unkn own) (unknown) (no date) (unknown) (unknown) 3.4 g/dL (unkn own) (unknown) (no date) (unknown) (unknown) 3.8 mmol/L (unkn own) (unknown) (no date) (unknown) (unknown) 36 IU/L (unkn own) (unknown) (no date) (unknown) (unknown) 4.8 g/dL (unkn own) (unknown) (no date) (unknown) (unknown) 61 IU/L (unkn own) (unknown) (no date) (unknown) (unknown) 8.2 g/dL (unkn own) (unknown) (no date) (unknown) (unknown) 86 U/L (unkn own) (unknown) (no date) (unknown) (unknown) 9.4 mg/dL (unkn own) (unknown) (no date) (unknown) (unknown) 96 mmol/L (unkn own) Result panel 10 (unknown) (no (unknown) (unknown) (no value) (units (unk nown) date) unknown) (unknown) (no (unknown) (unknown) Radiologist's (units ( unknown) date) Impression: unknown) (unknown) (no (unknown) (unknown) Date of Service: (units (unknown) date) 12/20/21 unknown) (unknown) (no (unknown) (unknown) (no value) (units (unk nown) date) unknown) (unknown) (no (unknown) (unknown) 12/20/21 18:30 (units (unknown) date) unknown) (unknown) (no (unknown) (unknown) 1 patch TOP DAILY (units (unknown) date) Qty: 30 3RF unknown) (unknown) (no (unknown) (unknown) 1 u DIRECTED (units (unknown) date) 0RF unknown) (unknown) (no (unknown) (unknown) 1,000 mg PO BID (units (unknown) date) Qty: 180 3RF unknown) (unknown) (no (unknown) (unknown) 100 mg PO DAILY (units (unknown) date) Qty: 90 3RF unknown) (unknown) (no (unknown) (unknown) 15mmHg - 20mmHg (units (unknown) date) knee high; use unknown) daily for lower extremity edema (unknown) (no (unknown) (unknown) 20 mg PO QDAY Qty: (units (unknown) date) 90 3RF unknown) (unknown) (no (unknown) (unknown) 25 mg PO BID PRN (units (unknown) date) (Reason: itching) unknown) Qty: 60 0RF (unknown) (no (unknown) (unknown) 40 mg PO DAILY (units (unknown) date) Qty: 90 3RF unknown) (unknown) (no (unknown) (unknown) 5 mg PO BID PRN (units (unknown) date) (Reason: nausea and unknown) vomiting) Qty: 30 0RF (unknown) (no (unknown) (unknown) 5 mg PO BID Qty: (units (unknown) date) 60 2RF unknown) (unknown) (no (unknown) (unknown) 5 mg PO QID PRN (units (unknown) date) (Reason: pain) Qty: unknown) 150 0RF (unknown) (no (unknown) (unknown) 50 mg PO QDAY Qty: (units (unknown) date) 180 1RF unknown) (unknown) (no (unknown) (unknown) Allergies (units (unkn own) date) unknown) (unknown) (no (unknown) (unknown) As directed (units (un known) date) unknown) (unknown) (no (unknown) (unknown) Documented by: (units (unknown) date) HGUBERN unknown) (unknown) (no (unknown) (unknown) Dose Instruction: (units (unknown) date) unknown) (unknown) (no (unknown) (unknown) ED Orders (units (unkn own) date) unknown) (unknown) (no (unknown) (unknown) Emergency Report (units (unknown) date) unknown) (unknown) (no (unknown) (unknown) Hold Instructions: (units (unknown) date) per provider unknown) (unknown) (no (unknown) (unknown) Home Medications (units (unknown) date) unknown) (unknown) (no (unknown) (unknown) [facility] (units (unknown) date) [address] unknown) [place] [address] (unknown) (no (unknown) (unknown) Lab Results (units (un known) date) unknown) (unknown) (no (unknown) (unknown) Last Admin: (units (un known) date) 12/21/21 00:26 unknown) Dose: 1,000 mls/hr (unknown) (no (unknown) (unknown) May take 10 mg (units (unknown) date) once a day in unknown) addition to 5 mg three times/day (unknown) (no (unknown) (unknown) Previous Rx's (units ( unknown) date) unknown) (unknown) (no (unknown) (unknown) Rx Instructions: (units (unknown) date) unknown) (unknown) (no (unknown) (unknown) See Dose (units (unkno wn) date) Instructions unknown) .ROUTE .MEDSUPPLY Qty: 100 11RF (unknown) (no (unknown) (unknown) See Dose (units (unkno wn) date) Instructions unknown) .ROUTE .MEDSUPPLY Qty: 2 1RF (unknown) (no (unknown) (unknown) See Dose (units (unkno wn) date) Instructions unknown) .Route .MEDSUPPLY Qty: 100 11RF (unknown) (no (unknown) (unknown) See Rx (units (unkno wn) date) Instructions unknown) .ROUTE .COMPLEX Qty: 120 6RF (unknown) (no (unknown) (unknown) See Rx (units (unkno wn) date) Instructions unknown) .ROUTE .COMPLEX Qty: 90 2RF (unknown) (no (unknown) (unknown) Stop: 12/21/21 (units (unknown) date) 01:18 unknown) (unknown) (no (unknown) (unknown) TAKE ONE CAPSULE (units (unknown) date) BY MOUTH ONE TIME unknown) DAILY (unknown) (no (unknown) (unknown) TAKE TWO TABLETS (units (unknown) date) BY MOUTH IN THE unknown) MORNING AND TWO TABLETS IN THE EVENING (unknown) (no (unknown) (unknown) Urine Dip (units (unkn own) date) unknown) (unknown) (no (unknown) (unknown) Use to test blood (units (unknown) date) sugar 3 times daily unknown) (unknown) (no (unknown) (unknown) Vital Signs - 8 hr (units (unknown) date) unknown) (unknown) (no (unknown) (unknown) leave on most (units ( unknown) date) painful area for up unknown) to 12 hrs (unknown) (no (unknown) (unknown) use to test blood (units (unknown) date) sugar 3 times daily unknown) (unknown) (no (unknown) (unknown) (no value) (units (unk nown) date) unknown) (unknown) (no (unknown) (unknown) (DME) blood sugar (units (unknown) date) diagnostic [Blood unknown) Glucose Test] strip (unknown) (no (unknown) (unknown) (DME) (units (unkno wn) date) compr.stocking,knee unknown) ,long,large misc (unknown) (no (unknown) (unknown) (DME) lancets (units ( unknown) date) [TRUEplus Lancets] unknown) 30 gauge misc (unknown) (no (unknown) (unknown) 12/20/21 12/20/21 (units (unknown) date) 12/20/21 unknown) Range/Units (unknown) (no (unknown) (unknown) 12/20/21 (units (unkno wn) date) Range/Units unknown) (unknown) (no (unknown) (unknown) 18:10 18:15 18:30 (units (unknown) date) unknown) (unknown) (no (unknown) (unknown) 18:30 (units (unkno wn) date) unknown) (unknown) (no (unknown) (unknown) Glucose: Home (units ( unknown) date) Monitoring Kit kit unknown) (unknown) (no (unknown) (unknown) allopurinol 100 mg (units (unknown) date) tablet unknown) (unknown) (no (unknown) (unknown) diazepam 5 mg (units ( unknown) date) tablet unknown) (unknown) (no (unknown) (unknown) fluoxetine 40 mg (units (unknown) date) capsule unknown) (unknown) (no (unknown) (unknown) furosemide 40 mg (units (unknown) date) tablet unknown) (unknown) (no (unknown) (unknown) hydroxyzine HCl 25 (units (unknown) date) mg tablet unknown) (unknown) (no (unknown) (unknown) lamotrigine (units (un known) date) [Lamictal] 25 mg unknown) tablet (unknown) (no (unknown) (unknown) lidocaine 5 % (units ( unknown) date) adhesive unknown) patch,medicated (unknown) (no (unknown) (unknown) losartan 100 mg (units (unknown) date) tablet unknown) (unknown) (no (unknown) (unknown) metformin 1,000 mg (units (unknown) date) tablet unknown) (unknown) (no (unknown) (unknown) metoclopramide HCl (units (unknown) date) 5 mg unknown) tablet,disintegrati ng (unknown) (no (unknown) (unknown) oxycodone 5 mg (units (unknown) date) tablet unknown) (unknown) (no (unknown) (unknown) simvastatin 20 mg (units (unknown) date) tablet unknown) (unknown) (no (unknown) (unknown) .COMPLEX #120 tab (units (unknown) date) unknown) (unknown) (no (unknown) (unknown) .COMPLEX #90 cap (units (unknown) date) unknown) (unknown) (no (unknown) (unknown) 12/20/21 (units (unkno wn) date) unknown) (unknown) (no (unknown) (unknown) 12/21/21 (units (unkno wn) date) unknown) (unknown) (no (unknown) (unknown) Alcohol (units (unkno wn) date) intoxication, unknown) Contusion of lower leg, right (unknown) (no (unknown) (unknown) Medication (units (unk nown) date) Instructions unknown) Recorded (unknown) (no (unknown) (unknown) Medication (units (unk nown) date) Instructions unknown) Recorded Confirmed (unknown) (no (unknown) (unknown) 00:05 (units (unkno wn) date) unknown) (unknown) (no (unknown) (unknown) 00:07 (units (unkno wn) date) unknown) (unknown) (no (unknown) (unknown) [id number] (units (unkno wn) date) unknown) (unknown) (no (unknown) (unknown) 12/20/21 17:25 (units (unknown) date) unknown) (unknown) (no (unknown) (unknown) 12/20/21 17:33 (units (unknown) date) unknown) (unknown) (no (unknown) (unknown) 12/20/21 17:38 (units (unknown) date) unknown) (unknown) (no (unknown) (unknown) 12/20/21 17:39 (units (unknown) date) unknown) (unknown) (no (unknown) (unknown) 12/20/21 18:10 (units (unknown) date) unknown) (unknown) (no (unknown) (unknown) 12/20/21 18:15 (units (unknown) date) unknown) (unknown) (no (unknown) (unknown) 12/20/21 18:30 (units (unknown) date) unknown) (unknown) (no (unknown) (unknown) 17:31 12/20/21 (units (unknown) date) unknown) (unknown) (no (unknown) (unknown) 19:15 12/20/21 (units (unknown) date) unknown) (unknown) (no (unknown) (unknown) 19:30 (units (unkno wn) date) unknown) (unknown) (no (unknown) (unknown) 21:13 12/20/21 (units (unknown) date) unknown) (unknown) (no (unknown) (unknown) 21:19 12/20/21 (units (unknown) date) unknown) (unknown) (no (unknown) (unknown) 21:30 (units (unkno wn) date) unknown) (unknown) (no (unknown) (unknown) 22:00 12/20/21 (units (unknown) date) unknown) (unknown) (no (unknown) (unknown) 22:30 12/20/21 (units (unknown) date) unknown) (unknown) (no (unknown) (unknown) 23:00 (units (unkno wn) date) unknown) (unknown) (no (unknown) (unknown) 23:21 12/20/21 (units (unknown) date) unknown) (unknown) (no (unknown) (unknown) 23:53 12/21/21 (units (unknown) date) unknown) (unknown) (no (unknown) (unknown) ALT (<35) (units ( unknown) date) IU/L unknown) (unknown) (no (unknown) (unknown) ALT 36 H (<35) (units (unknown) date) IU/L unknown) (unknown) (no (unknown) (unknown) AST (14-36) (units (unknown) date) IU/L unknown) (unknown) (no (unknown) (unknown) AST 61 H (14-36) (units (unknown) date) IU/L unknown) (unknown) (no (unknown) (unknown) Age/Sex: 61 / F (units (unknown) date) unknown) (unknown) (no (unknown) (unknown) Albumin (units (unkno wn) date) (3.5-5.0) g/dL unknown) (unknown) (no (unknown) (unknown) Albumin 4.8 (units (u nknown) date) (3.5-5.0) g/dL unknown) (unknown) (no (unknown) (unknown) Albumin/Globulin (units (unknown) date) Ratio (1.0-2.8) unknown) (unknown) (no (unknown) (unknown) Albumin/Globulin (units (unknown) date) Ratio 1.4 unknown) (1.0-2.8) (unknown) (no (unknown) (unknown) Alcohol abuse (units ( unknown) date) (09/07/15) unknown) (unknown) (no (unknown) (unknown) Alkaline (units (unkno wn) date) Phosphatase unknown) (38-126) U/L (unknown) (no (unknown) (unknown) Alkaline (units (unkno wn) date) Phosphatase 86 unknown) (38-126) U/L (unknown) (no (unknown) (unknown) Allergy/AdvReac (units (unknown) date) Type Severity unknown) Reaction Status Date / Time (unknown) (no (unknown) (unknown) Ankle fracture (units (unknown) date) (2016) unknown) (unknown) (no (unknown) (unknown) Anxiety (units (unkno wn) date) unknown) (unknown) (no (unknown) (unknown) Appearance: (units (un known) date) disheveled unknown) (unknown) (no (unknown) (unknown) Auscultation: (units ( unknown) date) clear to unknown) auscultation bilaterally (unknown) (no (unknown) (unknown) Auscultation: (units ( unknown) date) normal bowel sounds unknown) (unknown) (no (unknown) (unknown) BUN (7-17) (units (unknown) date) mg/dL unknown) (unknown) (no (unknown) (unknown) BUN 18 H (7-17) (units (unknown) date) mg/dL unknown) (unknown) (no (unknown) (unknown) BUN/Creatinine (units (unknown) date) Ratio (6-22) unknown) (unknown) (no (unknown) (unknown) BUN/Creatinine (units (unknown) date) Ratio 17.3 (6-22) unknown) (unknown) (no (unknown) (unknown) Back/Spine/Pelvis (units (unknown) date) unknown) (unknown) (no (unknown) (unknown) Back: normal to (units (unknown) date) inspection unknown) (unknown) (no (unknown) (unknown) Baso # (Auto) (units ( unknown) date) 100 (0-100) /uL unknown) (unknown) (no (unknown) (unknown) Baso # (Auto) (units ( unknown) date) (0-100) /uL unknown) (unknown) (no (unknown) (unknown) Baso % (Auto) (units ( unknown) date) 0.8 (0-2) % unknown) (unknown) (no (unknown) (unknown) Baso % (Auto) (units ( unknown) date) (0-2) % unknown) (unknown) (no (unknown) (unknown) Bedside Urine (units ( unknown) date) Bilirubin - unknown) Negative (unknown) (no (unknown) (unknown) Bedside Urine (units ( unknown) date) Glucose Negative unknown) (unknown) (no (unknown) (unknown) Bedside Urine (units ( unknown) date) Ketone - unknown) Negative (unknown) (no (unknown) (unknown) Bedside Urine (units ( unknown) date) Leukocytes - unknown) Negative (unknown) (no (unknown) (unknown) Bedside Urine (units ( unknown) date) Nitrite - unknown) Negative (unknown) (no (unknown) (unknown) Bedside Urine (units ( unknown) date) Occult Blood - unknown) Negative (unknown) (no (unknown) (unknown) Bedside Urine (units ( unknown) date) Protein ++ 100 unknown) (unknown) (no (unknown) (unknown) Bedside Urine (units ( unknown) date) Urobilinogen - unknown) Negative (unknown) (no (unknown) (unknown) Bedside Urine pH (units (unknown) date) 6.0 unknown) (unknown) (no (unknown) (unknown) Blood Pressure (units (unknown) date) unknown) (unknown) (no (unknown) (unknown) Blood Pressure (units (unknown) date) 104/76 12/20/21 unknown) 17:15 (unknown) (no (unknown) (unknown) Blood Pressure (units (unknown) date) 113/51 L unknown) (unknown) (no (unknown) (unknown) Blood Pressure (units (unknown) date) 92/52 L 89/52 L unknown) (unknown) (no (unknown) (unknown) Blood Pressure (units (unknown) date) 152/70 H unknown) (unknown) (no (unknown) (unknown) Blood Pressure (units (unknown) date) 95/54 L unknown) (unknown) (no (unknown) (unknown) 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 (unknown) (no (unknown) (unknown) CT head/brain wo (units (unknown) date) con Stat unknown) (unknown) (no (unknown) (unknown) CT scan - head: (units (unknown) date) unknown) (unknown) (no (unknown) (unknown) Calcium (units (unkno wn) date) (8.4-10.2) mg/dL unknown) (unknown) (no (unknown) (unknown) Calcium 9.4 (units (u nknown) date) (8.4-10.2) mg/dL unknown) (unknown) (no (unknown) (unknown) Carbon Dioxide (units (unknown) date) (22-32) mmol/L unknown) (unknown) (no (unknown) (unknown) Carbon Dioxide 23 (units (unknown) date) (22-32) mmol/L unknown) (unknown) (no (unknown) (unknown) Cardio (units (unkno wn) date) unknown) (unknown) (no (unknown) (unknown) Cardiovascular (units (unknown) date) unknown) (unknown) (no (unknown) (unknown) Cardiovascular: (units (unknown) date) Denies chest pain, unknown) Denies syncope, Denies rapid heart rate, (unknown) (no (unknown) (unknown) Chief Complaint: (units (unknown) date) Fall unknown) (unknown) (no (unknown) (unknown) Chloride (units (unkno wn) date) (98-107) mmol/L unknown) (unknown) (no (unknown) (unknown) Chloride 96 L (units (unknown) date) (98-107) mmol/L unknown) (unknown) (no (unknown) (unknown) Chronic (units (unkno wn) date) prescription opiate unknown) use (unknown) (no (unknown) (unknown) Cirrhosis (units (unkn own) date) unknown) (unknown) (no (unknown) (unknown) Clinical (units (unkno wn) date) Impression: unknown) (unknown) (no (unknown) (unknown) Comments: (units (unkn own) date) unknown) (unknown) (no (unknown) (unknown) Complete Blood (units (unknown) date) Count AUTO DIFF unknown) Stat (unknown) (no (unknown) (unknown) Comprehensive (units ( unknown) date) Metabolic Panel unknown) Stat (unknown) (no (unknown) (unknown) Conjunctivae: (units ( unknown) date) conjunctivae normal unknown) (unknown) (no (unknown) (unknown) Const (units (unkno wn) date) unknown) (unknown) (no (unknown) (unknown) Constitutional (units (unknown) date) unknown) (unknown) (no (unknown) (unknown) Constitutional: (units (unknown) date) Denies body unknown) ache(s), Denies chills, Reports difficulty sleeping, (unknown) (no (unknown) (unknown) Consult to [employer] - (units (unknown) date) [facility] Sorter unknown) Stat (unknown) (no (unknown) (unknown) Course (units (o wn) date) unknown) (unknown) (no (unknown) (unknown) Course Narrative: (units (unknown) date) unknown) (unknown) (no (unknown) (unknown) Cranial Nerves: No (units (unknown) date) nystagmus unknown) (unknown) (no (unknown) (unknown) Creatinine (units (unk nown) date) (0.52-1.04) mg/dL unknown) (unknown) (no (unknown) (unknown) Creatinine 1.04 (units (unknown) date) (0.52-1.04) mg/dL unknown) (unknown) (no (unknown) (unknown) : 1960 (units (unknown) date) Acct:[id number] unknown) (unknown) (no (unknown) (unknown) Denies fatigue and (units (unknown) date) Denies night sweats unknown) (unknown) (no (unknown) (unknown) Denies (units (unkno wn) date) lightheadedness and unknown) Denies dyspnea on exertion (unknown) (no (unknown) (unknown) Denies syncope (units (unknown) date) unknown) (unknown) (no (unknown) (unknown) Departure (units (unkn own) date) unknown) (unknown) (no (unknown) (unknown) Depression (units (unk nown) date) unknown) (unknown) (no (unknown) (unknown) Diabetes mellitus (units (unknown) date) unknown) (unknown) (no (unknown) (unknown) Discharge Plan (units (unknown) date) unknown) (unknown) (no (unknown) (unknown) Discontinued (units (u nknown) date) Medications unknown) (unknown) (no (unknown) (unknown) ENT (units (unkno wn) date) unknown) (unknown) (no (unknown) (unknown) EOM: EOM intact (units (unknown) date) bilaterally and No unknown) nystagmus (unknown) (no (unknown) (unknown) ER Physician: (units ( unknown) date) Armen Cao MD unknown) (unknown) (no (unknown) (unknown) Ears, Nose, Mouth, (units (unknown) date) and Throat: Denies unknown) dizziness, Denies sinus pain and Denies (unknown) (no (unknown) (unknown) Effort + (units (unkno wn) date) Inspection: normal unknown) respiratory effort (unknown) (no (unknown) (unknown) Endocrine (units (unkn own) date) unknown) (unknown) (no (unknown) (unknown) Endocrine: Denies (units (unknown) date) fatigue unknown) (unknown) (no (unknown) (unknown) Eos # (Auto) (units (u nknown) date) 200 (0-450) /uL unknown) (unknown) (no (unknown) (unknown) Eos # (Auto) (units (u nknown) date) (0-450) /uL unknown) (unknown) (no (unknown) (unknown) Eos % (Auto) (units (u nknown) date) 2.0 (2-4) % unknown) (unknown) (no (unknown) (unknown) Eos % (Auto) (units (u nknown) date) (2-4) % unknown) (unknown) (no (unknown) (unknown) Esterase (units (unkno wn) date) unknown) (unknown) (no (unknown) (unknown) Estimated GFR (units ( unknown) date) (>60) mL/min unknown) (unknown) (no (unknown) (unknown) Estimated GFR > (units (unknown) date) 60 (>60) mL/min unknown) (unknown) (no (unknown) (unknown) Ethanol (ETOH) (units (unknown) date) Stat unknown) (unknown) (no (unknown) (unknown) Ethyl Alcohol ( (units (unknown) date) - 10) mg/dL unknown) (unknown) (no (unknown) (unknown) Ethyl Alcohol 274 (units (unknown) date) H ( - 10) mg/dL unknown) (unknown) (no (unknown) (unknown) Exam (units (unkno wn) date) unknown) (unknown) (no (unknown) (unknown) Extrem (units (unkno wn) date) unknown) (unknown) (no (unknown) (unknown) Eyes (units (unkno wn) date) unknown) (unknown) (no (unknown) (unknown) Eyes: Denies (units (u nknown) date) change in vision unknown) (unknown) (no (unknown) (unknown) GI (units (unkno wn) date) unknown) (unknown) (no (unknown) (unknown) Gastrointestinal (units (unknown) date) unknown) (unknown) (no (unknown) (unknown) Gastrointestinal: (units (unknown) date) Denies abdominal unknown) pain, Denies change in bowel habits, Denies (unknown) (no (unknown) (unknown) General (units (unkno wn) date) unknown) (unknown) (no (unknown) (unknown) General: anxious, (units (unknown) date) No ill appearing unknown) and intoxicated appearing (unknown) (no (unknown) (unknown) General: full ROM (units (unknown) date) and no pedal edema unknown) (unknown) (no (unknown) (unknown) General: no rashes (units (unknown) date) or lesions noted unknown) (unknown) (no (unknown) (unknown) General: patient (units (unknown) date) alert, patient unknown) awake and patient oriented x3 (unknown) (no (unknown) (unknown) GenericComposite[P (units (unknown) date) lt Count 232 unknown) (150-400) X10^3/uL ] (unknown) (no (unknown) (unknown) GenericComposite[P (units (unknown) date) lt Count unknown) (150-400) X10^3/uL ] (unknown) (no (unknown) (unknown) GenericComposite[R (units (unknown) date) BC 3.94 L unknown) (4.0-5.2) X10^6/uL ] (unknown) (no (unknown) (unknown) GenericComposite[R (units (unknown) date) BC (4.0-5.2) unknown) X10^6/uL ] (unknown) (no (unknown) (unknown) GenericComposite[W (units (unknown) date) BC 9.8 unknown) (4.5-11.0) X10^3/uL ] (unknown) (no (unknown) (unknown) GenericComposite[W (units (unknown) date) BC (4.5-11.0) unknown) X10^3/uL ] (unknown) (no (unknown) (unknown) Genitourinary (units ( unknown) date) unknown) (unknown) (no (unknown) (unknown) Genitourinary: (units (unknown) date) Denies dysuria unknown) (unknown) (no (unknown) (unknown) Globulin (units (unkno wn) date) (1.7-4.1) g/dL unknown) (unknown) (no (unknown) (unknown) Globulin 3.4 (units ( unknown) date) (1.7-4.1) g/dL unknown) (unknown) (no (unknown) (unknown) Glucose (units (unkno wn) date) (80-110) mg/dL unknown) (unknown) (no (unknown) (unknown) Glucose 111 H (units (unknown) date) (80-110) mg/dL unknown) (unknown) (no (unknown) (unknown) Glucose Test) (units ( unknown) date) unknown) (unknown) (no (unknown) (unknown) Glucose: Home (units ( unknown) date) Monitoring Kit 1 u unknown) DIRECTED 05/06/20 05/06/20 (unknown)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 (unknown) leave on most (units ( unknown) date) painful area for up unknown) to 12 hrs (unknown) (no (unknown) (unknown) use to test blood (units (unknown) date) sugar 3 times daily unknown) (unknown) (no (unknown) (unknown) (no value) (units (unk nown) date) unknown) (unknown) (no (unknown) (unknown) (DME) blood sugar (units (unknown) date) diagnostic [Blood unknown) Glucose Test] strip (unknown) (no (unknown) (unknown) (DME) (units (unkno wn) date) compr.stocking,knee unknown) ,long,large misc (unknown) (no (unknown) (unknown) (DME) lancets (units ( unknown) date) [TRUEplus Lancets] unknown) 30 gauge misc (unknown) (no (unknown) (unknown) 12/20/21 12/20/21 (units (unknown) date) 12/20/21 unknown) Range/Units (unknown) (no (unknown) (unknown) 12/20/21 (units (unkno wn) date) Range/Units unknown) (unknown) (no (unknown) (unknown) 18:10 18:15 18:30 (units (unknown) date) unknown) (unknown) (no (unknown) (unknown) 18:30 (units (unkno wn) date) unknown) (unknown) (no (unknown) (unknown) Glucose: Home (units ( unknown) date) Monitoring Kit kit unknown) (unknown) (no (unknown) (unknown) allopurinol 100 mg (units (unknown) date) tablet unknown) (unknown) (no (unknown) (unknown) diazepam 5 mg (units ( unknown) date) tablet unknown) (unknown) (no (unknown) (unknown) fluoxetine 40 mg (units (unknown) date) capsule unknown) (unknown) (no (unknown) (unknown) furosemide 40 mg (units (unknown) date) tablet unknown) (unknown) (no (unknown) (unknown) hydroxyzine HCl 25 (units (unknown) date) mg tablet unknown) (unknown) (no (unknown) (unknown) lamotrigine (units (un known) date) [Lamictal] 25 mg unknown) tablet (unknown) (no (unknown) (unknown) lidocaine 5 % (units ( unknown) date) adhesive unknown) patch,medicated (unknown) (no (unknown) (unknown) losartan 100 mg (units (unknown) date) tablet unknown) (unknown) (no (unknown) (unknown) metformin 1,000 mg (units (unknown) date) tablet unknown) (unknown) (no (unknown) (unknown) metoclopramide HCl (units (unknown) date) 5 mg unknown) tablet,disintegrati ng (unknown) (no (unknown) (unknown) oxycodone 5 mg (units (unknown) date) tablet unknown) (unknown) (no (unknown) (unknown) simvastatin 20 mg (units (unknown) date) tablet unknown) (unknown) (no (unknown) (unknown) .COMPLEX #120 tab (units (unknown) date) unknown) (unknown) (no (unknown) (unknown) .COMPLEX #90 cap (units (unknown) date) unknown) (unknown) (no (unknown) (unknown) 12/20/21 (units (unkno wn) date) unknown) (unknown) (no (unknown) (unknown) 12/21/21 (units (unkno wn) date) unknown) (unknown) (no (unknown) (unknown) Alcohol (units (unkno wn) date) intoxication, unknown) Contusion of lower leg, right (unknown) (no (unknown) (unknown) Medication (units (unk nown) date) Instructions unknown) Recorded (unknown) (no (unknown) (unknown) Medication (units (unk nown) date) Instructions unknown) Recorded Confirmed (unknown) (no (unknown) (unknown) 00:05 (units (unkno wn) date) unknown) (unknown) (no (unknown) (unknown) 00:07 12/21/21 (units (unknown) date) unknown) (unknown) (no (unknown) (unknown) 00:30 12/21/21 (units (unknown) date) unknown) (unknown) (no (unknown) (unknown) 00:45 (units (unkno wn) date) unknown) (unknown) (no (unknown) (unknown) [id number] (units (unkno wn) date) unknown) (unknown) (no (unknown) (unknown) 01:08 12/21/21 (units (unknown) date) unknown) (unknown) (no (unknown) (unknown) 01:26 12/21/21 (units (unknown) date) unknown) (unknown) (no (unknown) (unknown) 01:30 (units (unkno wn) date) unknown) (unknown) (no (unknown) (unknown) 01:31 12/21/21 (units (unknown) date) unknown) (unknown) (no (unknown) (unknown) 02:00 12/21/21 (units (unknown) date) unknown) (unknown) (no (unknown) (unknown) 02:30 (units (unkno wn) date) unknown) (unknown) (no (unknown) (unknown) 03:00 12/21/21 (units (unknown) date) unknown) (unknown) (no (unknown) (unknown) 03:30 (units (unkno wn) date) unknown) (unknown) (no (unknown) (unknown) 21:13 12/20/21 (units (unknown) date) unknown) (unknown) (no (unknown) (unknown) 21:19 12/20/21 (units (unknown) date) unknown) (unknown) (no (unknown) (unknown) 21:30 (units (unkno wn) date) unknown) (unknown) (no (unknown) (unknown) 22:00 12/20/21 (units (unknown) date) unknown) (unknown) (no (unknown) (unknown) 22:30 12/20/21 (units (unknown) date) unknown) (unknown) (no (unknown) (unknown) 23:00 (units (unkno wn) date) unknown) (unknown) (no (unknown) (unknown) 23:21 12/20/21 (units (unknown) date) unknown) (unknown) (no (unknown) (unknown) 23:53 12/21/21 (units (unknown) date) unknown) (unknown) (no (unknown) (unknown) ALT (<35) (units ( unknown) date) IU/L unknown) (unknown) (no (unknown) (unknown) ALT 36 H (<35) (units (unknown) date) IU/L unknown) (unknown) (no (unknown) (unknown) AST (14-36) (units (unknown) date) IU/L unknown) (unknown) (no (unknown) (unknown) AST 61 H (14-36) (units (unknown) date) IU/L unknown) (unknown) (no (unknown) (unknown) Activity (units (unkno wn) date) Restrictions/Additi unknown) onal Instructions: (unknown) (no (unknown) (unknown) Age/Sex: 61 / F (units (unknown) date) unknown) (unknown) (no (unknown) (unknown) Albumin (units (unkno wn) date) (3.5-5.0) g/dL unknown) (unknown) (no (unknown) (unknown) Albumin 4.8 (units (u nknown) date) (3.5-5.0) g/dL unknown) (unknown) (no (unknown) (unknown) Albumin/Globulin (units (unknown) date) Ratio (1.0-2.8) unknown) (unknown) (no (unknown) (unknown) Albumin/Globulin (units (unknown) date) Ratio 1.4 unknown) (1.0-2.8) (unknown) (no (unknown) (unknown) Alcohol abuse (units ( unknown) date) (09/07/15) unknown) (unknown) (no (unknown) (unknown) Alkaline (units (unkno wn) date) Phosphatase unknown) (38-126) U/L (unknown) (no (unknown) (unknown) Alkaline (units (unkno wn) date) Phosphatase 86 unknown) (38-126) U/L (unknown) (no (unknown) (unknown) Allergy/AdvReac (units (unknown) date) Type Severity unknown) Reaction Status Date / Time (unknown) (no (unknown) (unknown) Ankle fracture (units (unknown) date) (2016) unknown) (unknown) (no (unknown) (unknown) Anxiety (units (unkno wn) date) unknown) (unknown) (no (unknown) (unknown) Appearance: (units (un known) date) disheveled unknown) (unknown) (no (unknown) (unknown) Auscultation: (units ( unknown) date) clear to unknown) auscultation bilaterally (unknown) (no (unknown) (unknown) Auscultation: (units ( unknown) date) normal bowel sounds unknown) (unknown) (no (unknown) (unknown) BUN (7-17) (units (unknown) date) mg/dL unknown) (unknown) (no (unknown) (unknown) BUN 18 H (7-17) (units (unknown) date) mg/dL unknown) (unknown) (no (unknown) (unknown) BUN/Creatinine (units (unknown) date) Ratio (6-22) unknown) (unknown) (no (unknown) (unknown) BUN/Creatinine (units (unknown) date) Ratio 17.3 (6-22) unknown) (unknown) (no (unknown) (unknown) Back/Spine/Pelvis (units (unknown) date) unknown) (unknown) (no (unknown) (unknown) Back: normal to (units (unknown) date) inspection unknown) (unknown) (no (unknown) (unknown) Baso # (Auto) (units ( unknown) date) 100 (0-100) /uL unknown) (unknown) (no (unknown) (unknown) Baso # (Auto) (units ( unknown) date) (0-100) /uL unknown) (unknown) (no (unknown) (unknown) Baso % (Auto) (units ( unknown) date) 0.8 (0-2) % unknown) (unknown) (no (unknown) (unknown) Baso % (Auto) (units ( unknown) date) (0-2) % unknown) (unknown) (no (unknown) (unknown) Bedside Urine (units ( unknown) date) Bilirubin - unknown) Negative (unknown) (no (unknown) (unknown) Bedside Urine (units ( unknown) date) Glucose Negative unknown) (unknown) (no (unknown) (unknown) Bedside Urine (units ( unknown) date) Ketone - unknown) Negative (unknown) (no (unknown) (unknown) Bedside Urine (units ( unknown) date) Leukocytes - unknown) Negative (unknown) (no (unknown) (unknown) Bedside Urine (units ( unknown) date) Nitrite - unknown) Negative (unknown) (no (unknown) (unknown) Bedside Urine (units ( unknown) date) Occult Blood - unknown) Negative (unknown) (no (unknown) (unknown) Bedside Urine (units ( unknown) date) Protein ++ 100 unknown) (unknown) (no (unknown) (unknown) Bedside Urine (units ( unknown) date) Urobilinogen - unknown) Negative (unknown) (no (unknown) (unknown) Bedside Urine pH (units (unknown) date) 6.0 unknown) (unknown) (no (unknown) (unknown) Blood Pressure (units (unknown) date) unknown) (unknown) (no (unknown) (unknown) Blood Pressure (units (unknown) date) 97/57 L unknown) (unknown) (no (unknown) (unknown) Blood Pressure (units (unknown) date) 104/76 12/20/21 unknown) 17:15 (unknown) (no (unknown) (unknown) Blood Pressure (units (unknown) date) 113/51 L unknown) (unknown) (no (unknown) (unknown) Blood Pressure (units (unknown) date) 85/49 L 85/49 L unknown) (unknown) (no (unknown) (unknown) Blood Pressure (units (unknown) date) 92/52 L 89/52 L unknown) (unknown) (no (unknown) (unknown) Blood Pressure (units (unknown) date) 109/59 L unknown) (unknown) (no (unknown) (unknown) Blood Pressure (units (unknown) date) 95/54 L 90/52 L unknown) (unknown) (no (unknown) (unknown) 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 (unknown) (no (unknown) (unknown) CT scan - head: (units (unknown) date) unknown) (unknown) (no (unknown) (unknown) Calcium (units (unkno wn) date) (8.4-10.2) mg/dL unknown) (unknown) (no (unknown) (unknown) Calcium 9.4 (units (u nknown) date) (8.4-10.2) mg/dL unknown) (unknown) (no (unknown) (unknown) Carbon Dioxide (units (unknown) date) (22-32) mmol/L unknown) (unknown) (no (unknown) (unknown) Carbon Dioxide 23 (units (unknown) date) (22-32) mmol/L unknown) (unknown) (no (unknown) (unknown) Cardio (units (unkno wn) date) unknown) (unknown) (no (unknown) (unknown) Cardiovascular (units (unknown) date) unknown) (unknown) (no (unknown) (unknown) Cardiovascular: (units (unknown) date) Denies chest pain, unknown) Denies syncope, Denies rapid heart rate, (unknown) (no (unknown) (unknown) Chief Complaint: (units (unknown) date) Fall unknown) (unknown) (no (unknown) (unknown) Chloride (units (unkno wn) date) (98-107) mmol/L unknown) (unknown) (no (unknown) (unknown) Chloride 96 L (units (unknown) date) (98-107) mmol/L unknown) (unknown) (no (unknown) (unknown) Chronic (units (unkno wn) date) prescription opiate unknown) use (unknown) (no (unknown) (unknown) Cirrhosis (units (unkn own) date) unknown) (unknown) (no (unknown) (unknown) Clinical (units (unkno wn) date) Impression: unknown) (unknown) (no (unknown) (unknown) Comments: (units (unkn own) date) unknown) (unknown) (no (unknown) (unknown) Conjunctivae: (units ( unknown) date) conjunctivae normal unknown) (unknown) (no (unknown) (unknown) Const (units (unkno wn) date) unknown) (unknown) (no (unknown) (unknown) Constitutional (units (unknown) date) unknown) (unknown) (no (unknown) (unknown) Constitutional: (units (unknown) date) Denies body unknown) ache(s), Denies chills, Reports difficulty sleeping, (unknown) (no (unknown) (unknown) Course (units (unkno wn) date) unknown) (unknown) (no (unknown) (unknown) Course Narrative: (units (unknown) date) unknown) (unknown) (no (unknown) (unknown) Cranial Nerves: No (units (unknown) date) nystagmus unknown) (unknown) (no (unknown) (unknown) Creatinine (units (unk nown) date) (0.52-1.04) mg/dL unknown) (unknown) (no (unknown) (unknown) Creatinine 1.04 (units (unknown) date) (0.52-1.04) mg/dL unknown) (unknown) (no (unknown) (unknown) : 1960 (units (unknown) date) Acct:[id number] unknown) (unknown) (no (unknown) (unknown) Denies fatigue and (units (unknown) date) Denies night sweats unknown) (unknown) (no (unknown) (unknown) Denies (units (unkno wn) date) lightheadedness and unknown) Denies dyspnea on exertion (unknown) (no (unknown) (unknown) Denies syncope (units (unknown) date) unknown) (unknown) (no (unknown) (unknown) Departure (units (unkn own) date) unknown) (unknown) (no (unknown) (unknown) Depression (units (unk nown) date) unknown) (unknown) (no (unknown) (unknown) Diabetes mellitus (units (unknown) date) unknown) (unknown) (no (unknown) (unknown) Discharge Plan (units (unknown) date) unknown) (unknown) (no (unknown) (unknown) Discontinued (units (u nknown) date) Medications unknown) (unknown) (no (unknown) (unknown) ENT (units (unkno wn) date) unknown) (unknown) (no (unknown) (unknown) EOM: EOM intact (units (unknown) date) bilaterally and No unknown) nystagmus (unknown) (no (unknown) (unknown) ER Physician: (units ( unknown) date) Armen Cao MD unknown) (unknown) (no (unknown) (unknown) Ears, Nose, Mouth, (units (unknown) date) and Throat: Denies unknown) dizziness, Denies sinus pain and Denies (unknown) (no (unknown) (unknown) Effort + (units (unkno wn) date) Inspection: normal unknown) respiratory effort (unknown) (no (unknown) (unknown) Endocrine (units (unkn own) date) unknown) (unknown) (no (unknown) (unknown) Endocrine: Denies (units (unknown) date) fatigue unknown) (unknown) (no (unknown) (unknown) Eos # (Auto) (units (u nknown) date) 200 (0-450) /uL unknown) (unknown) (no (unknown) (unknown) Eos # (Auto) (units (u nknown) date) (0-450) /uL unknown) (unknown) (no (unknown) (unknown) Eos % (Auto) (units (u nknown) date) 2.0 (2-4) % unknown) (unknown) (no (unknown) (unknown) Eos % (Auto) (units (u nknown) date) (2-4) % unknown) (unknown) (no (unknown) (unknown) Esterase (units (unkno wn) date) unknown) (unknown) (no (unknown) (unknown) Estimated GFR (units ( unknown) date) (>60) mL/min unknown) (unknown) (no (unknown) (unknown) Estimated GFR > (units (unknown) date) 60 (>60) mL/min unknown) (unknown) (no (unknown) (unknown) Ethyl Alcohol ( (units (unknown) date) - 10) mg/dL unknown) (unknown) (no (unknown) (unknown) Ethyl Alcohol 274 (units (unknown) date) H ( - 10) mg/dL unknown) (unknown) (no (unknown) (unknown) Exam (units (unkno wn) date) unknown) (unknown) (no (unknown) (unknown) Extrem (units (unkno wn) date) unknown) (unknown) (no (unknown) (unknown) Eyes (units (unkno wn) date) unknown) (unknown) (no (unknown) (unknown) Eyes: Denies (units (u nknown) date) change in vision unknown) (unknown) (no (unknown) (unknown) Follow-up with (units (unknown) date) your regular doctor unknown) regarding ongoing assistance if necessary. (unknown) (no (unknown) (unknown) GI (units (unkno wn) date) unknown) (unknown) (no (unknown) (unknown) Gastrointestinal (units (unknown) date) unknown) (unknown) (no (unknown) (unknown) Gastrointestinal: (units (unknown) date) Denies abdominal unknown) pain, Denies change in bowel habits, Denies (unknown) (no (unknown) (unknown) General (units (unkno wn) date) unknown) (unknown) (no (unknown) (unknown) General: anxious, (units (unknown) date) No ill appearing unknown) and intoxicated appearing (unknown) (no (unknown) (unknown) General: full ROM (units (unknown) date) and no pedal edema unknown) (unknown) (no (unknown) (unknown) General: no rashes (units (unknown) date) or lesions noted unknown) (unknown) (no (unknown) (unknown) General: patient (units (unknown) date) alert, patient unknown) awake and patient oriented x3 (unknown) (no (unknown) (unknown) GenericComposite[P (units (unknown) date) lt Count 232 unknown) (150-400) X10^3/uL ] (unknown) (no (unknown) (unknown) GenericComposite[P (units (unknown) date) lt Count unknown) (150-400) X10^3/uL ] (unknown) (no (unknown) (unknown) GenericComposite[R (units (unknown) date) BC 3.94 L unknown) (4.0-5.2) X10^6/uL ] (unknown) (no (unknown) (unknown) GenericComposite[R (units (unknown) date) BC (4.0-5.2) unknown) X10^6/uL ] (unknown) (no (unknown) (unknown) GenericComposite[W (units (unknown) date) BC 9.8 unknown) (4.5-11.0) X10^3/uL ] (unknown) (no (unknown) (unknown) GenericComposite[W (units (unknown) date) BC (4.5-11.0) unknown) X10^3/uL ] (unknown) (no (unknown) (unknown) Genitourinary (units ( unknown) date) unknown) (unknown) (no (unknown) (unknown) Genitourinary: (units (unknown) date) Denies dysuria unknown) (unknown) (no (unknown) (unknown) Globulin (units (unkno wn) date) (1.7-4.1) g/dL unknown) (unknown) (no (unknown) (unknown) Globulin 3.4 (units ( unknown) date) (1.7-4.1) g/dL unknown) (unknown) (no (unknown) (unknown) Glucose (units (unkno wn) date) (80-110) mg/dL unknown) (unknown) (no (unknown) (unknown) Glucose 111 H (units (unknown) date) (80-110) mg/dL unknown) (unknown) (no (unknown) (unknown) Glucose Test) (units ( unknown) date) unknown) (unknown) (no (unknown) (unknown) Glucose: Home (units ( unknown) date) Monitoring Kit 1 u unknown) DIRECTED 05/06/20 05/06/20 (unknown) (no (unknown) (unknown) HENMT (units (unkno wn) date) unknown) (unknown) (no (unknown) (unknown) HPI - Fall (units (unk nown) date) unknown) (unknown) (no (unknown) (unknown) HPI Narrative: (units (unknown) date) unknown) (unknown) (no (unknown) (unknown) Hct 35.5 L (units ( unknown) date) (36-46) % unknown) (unknown) (no (unknown) (unknown) Hct (36-46) % (units (unknown) date) unknown) (unknown) (no (unknown) (unknown) Head: normal to (units (unknown) date) inspection, unknown) normocephalic and atraumatic (unknown) (no (unknown) (unknown) Heart Sounds: S1 (units (unknown) date) normal, S2 normal unknown) and no murmurs (unknown) (no (unknown) (unknown) Hgb 11.5 L (units ( unknown) date) (12.0-16.0) g/dL unknown) (unknown) (no (unknown) (unknown) Hgb (12.0-16.0) (units (unknown) date) g/dL unknown) (unknown) (no (unknown) (unknown) History of Present (units (unknown) date) Illness unknown) (unknown) (no (unknown) (unknown) History of ebony (units (unknown) date) hole surgery (2016) unknown) (unknown) (no (unknown) (unknown) History of (units (unk nown) date) hysterectomy unknown) (unknown) (no (unknown) (unknown) History of knee (units (unknown) date) replacement unknown) (unknown) (no (unknown) (unknown) Hypertension (units (u nknown) date) unknown) (unknown) (no (unknown) (unknown) I contacted a 2nd (units (unknown) date) you about 3 hours unknown) after she had been here. She had been (unknown) (no (unknown) (unknown) Imaging Data (units (u nknown) date) unknown) (unknown) (no (unknown) (unknown) Initial Vital (units ( unknown) date) Signs unknown) (unknown) (no (unknown) (unknown) Initial Vital (units ( unknown) date) Signs: unknown) (unknown) (no (unknown) (unknown) Inspection: normal (units (unknown) date) to inspection and unknown) no edema (unknown) (no (unknown) (unknown) Instructions: (units ( unknown) date) Contusion, DI for unknown) Alcohol Use Disorder (unknown) (no (unknown) (unknown) Integumentary/[place] (units (unknown) date) sts unknown) (unknown) (no (unknown) (unknown) Intracranial (units (u nknown) date) hemorrhage (2016) unknown) (unknown) (no (unknown) (unknown) Knee arthroplasty (units (unknown) date) with hardware unknown) intact. No evidence of acute fracture (unknown) (no (unknown) (unknown) Lab Data (units (unkno wn) date) unknown) (unknown) (no (unknown) (unknown) Labs: (units (unkno wn) date) unknown) (unknown) (no (unknown) (unknown) Lymph # (Auto) (units (unknown) date) 3500 (0889-6144) unknown) /uL (unknown) (no (unknown) (unknown) Lymph # (Auto) (units (unknown) date) (9259-5416) /uL unknown) (unknown) (no (unknown) (unknown) Lymph % (Auto) (units (unknown) date) 36.2 (25-40) % unknown) (unknown) (no (unknown) (unknown) Lymph % (Auto) (units (unknown) date) (25-40) % unknown) (unknown) (no (unknown) (unknown) MCH 29.2 (units (un known) date) (26-34) PG unknown) (unknown) (no (unknown) (unknown) MCH (26-34) PG (units (unknown) date) unknown) (unknown) (no (unknown) (unknown) MCHC 32.4 (units (u nknown) date) (30-36) % unknown) (unknown) (no (unknown) (unknown) MCHC (30-36) % (units (unknown) date) unknown) (unknown) (no (unknown) (unknown) MCV 90.1 (units (un known) date) (80-100) fL unknown) (unknown) (no (unknown) (unknown) MCV (80-100) fL (units (unknown) date) unknown) (unknown) (no (unknown) (unknown) MDM - Fall (units (unk nown) date) unknown) (unknown) (no (unknown) (unknown) Medical History (units (unknown) date) (Reviewed 12/21/21 unknown) @ 01:23 by Armen Cao MD) (unknown) (no (unknown) (unknown) Mode of arrival: (units (unknown) date) EMS unknown) (unknown) (no (unknown) (unknown) [place] # (Auto) (units ( unknown) date) 1400 H (0-900) unknown) /uL (unknown) (no (unknown) (unknown) [place] # (Auto) (units ( unknown) date) (0-900) /uL unknown) (unknown) (no (unknown) (unknown) [place] % (Auto) (units ( unknown) date) 13.8 (3-14) % unknown) (unknown) (no (unknown) (unknown) [place] % (Auto) (units ( unknown) date) (3-14) % unknown) (unknown) (no (unknown) (unknown) Mood: labile mood (units (unknown) date) unknown) (unknown) (no (unknown) (unknown) Mouth: oral (units (un known) date) mucosae normal unknown) (unknown) (no (unknown) (unknown) Musculoskeletal (units (unknown) date) unknown) (unknown) (no (unknown) (unknown) Musculoskeletal: (units (unknown) date) Denies back pain unknown) (unknown) (no (unknown) (unknown) Neck (units (unkno wn) date) unknown) (unknown) (no (unknown) (unknown) Neck: normal (units (u nknown) date) visual inspection unknown) and No lymphadenopathy (unknown) (no (unknown) (unknown) Neuro (units (unkno wn) date) unknown) (unknown) (no (unknown) (unknown) Neurologic (units (unk nown) date) unknown) (unknown) (no (unknown) (unknown) Neurologic: (units (un known) date) Reports behavioral unknown) changes, Reports confusion, Denies dizziness and (unknown) (no (unknown) (unknown) Neut # (Auto) (units ( unknown) date) 4600 (7515-1316) unknown) /uL (unknown) (no (unknown) (unknown) Neut # (Auto) (units ( unknown) date) (6179-2394) /uL unknown) (unknown) (no (unknown) (unknown) Neut % (Auto) (units ( unknown) date) 47.2 L (50-75) % unknown) (unknown) (no (unknown) (unknown) Neut % (Auto) (units ( unknown) date) (50-75) % unknown) (unknown) (no (unknown) (unknown) No Action (units (unkn own) date) unknown) (unknown) (no (unknown) (unknown) No Known Drug (units ( unknown) date) Allergies Allergy unknown) Verified 05/04/20 08:35 (unknown) (no (unknown) (unknown) No acute (units (unkno wn) date) intracranial unknown) injury. Prior left side of cranial ebony holes. (unknown) (no (unknown) (unknown) No extremity pain. (units (unknown) date) unknown) (unknown) (no (unknown) (unknown) Normal range of (units (unknown) date) motion both hips unknown) and knees. Hematoma just distal to the right (unknown) (no (unknown) (unknown) Obesity (BMI (units (u nknown) date) 30-39.9) unknown) (unknown) (no (unknown) (unknown) Ordered: (units (unkno wn) date) unknown) (unknown) (no (unknown) (unknown) Orders (units (unkno wn) date) unknown) (unknown) (no (unknown) (unknown) Other: (units (unkno wn) date) unknown) (unknown) (no (unknown) (unknown) Palpation: soft (units (unknown) date) and No tender unknown) (unknown) (no (unknown) (unknown) Patient (units (unkno wn) date) Disposition: Home unknown) (unknown) (no (unknown) (unknown) Patient History (units (unknown) date) unknown) (unknown) (no (unknown) (unknown) Patient: (units (unkno wn) date) Bere Lee unknown) MR#: [id number] (unknown) (no (unknown) (unknown) Potassium (units (unkn own) date) (3.4-5.1) mmol/L unknown) (unknown) (no (unknown) (unknown) Potassium 3.8 (units (unknown) date) (3.4-5.1) mmol/L unknown) (unknown) (no (unknown) (unknown) Prescriptions: (units (unknown) date) unknown) (unknown) (no (unknown) (unknown) Psych (units (unkno wn) date) unknown) (unknown) (no (unknown) (unknown) Psychiatric (units (un known) date) unknown) (unknown) (no (unknown) (unknown) Psychiatric: (units (u nknown) date) Reports behavioral unknown) changes and Reports confusion (unknown) (no (unknown) (unknown) Pulse Oximetry 96 (units (unknown) date) 12/20/21 17:15 unknown) (unknown) (no (unknown) (unknown) Pulse Oximetry 96 (units (unknown) date) 95 unknown) (unknown) (no (unknown) (unknown) Pulse Oximetry 92 (units (unknown) date) 99 99 unknown) (unknown) (no (unknown) (unknown) Pulse Oximetry 93 (units (unknown) date) 93 unknown) (unknown) (no (unknown) (unknown) Pulse Oximetry 93 (units (unknown) date) 91 90 L unknown) (unknown) (no (unknown) (unknown) Pulse Oximetry 96 (units (unknown) date) 91 93 unknown) (unknown) (no (unknown) (unknown) Pulse Oximetry 98 (units (unknown) date) 90 L unknown) (unknown) (no (unknown) (unknown) Pulse Oximetry 98 (units (unknown) date) 96 unknown) (unknown) (no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 unknown) (unknown) (no (unknown) (unknown) Ur Culture (units (unk nown) date) Indicated? Cult unknown) not indicated (unknown) (no (unknown) (unknown) Ur MDMA Scrn (units (u nknown) date) (Ecstasy) unknown) (Negative) (unknown) (no (unknown) (unknown) Ur MDMA Scrn (units (u nknown) date) (Ecstasy) Negative unknown) (Negative) (unknown) (no (unknown) (unknown) Ur Oxycodone (units (u nknown) date) Screen (Negative) unknown) (unknown) (no (unknown) (unknown) Ur Oxycodone (units (u nknown) date) Screen Negative unknown) (Negative) (unknown) (no (unknown) (unknown) Ur Phencyclidine (units (unknown) date) Scrn (Negative) unknown) (unknown) (no (unknown) (unknown) Ur Phencyclidine (units (unknown) date) Scrn Negative unknown) (Negative) (unknown) (no (unknown) (unknown) Ur Squamous Epith (units (unknown) date) Cells (0-5/HPF) unknown) (unknown) (no (unknown) (unknown) Ur Squamous Epith (units (unknown) date) Cells 1-5 /hpf unknown) (0-5/HPF) (unknown) (no (unknown) (unknown) Urine Bacteria (units (unknown) date) (None) unknown) (unknown) (no (unknown) (unknown) Urine Bacteria (units (unknown) date) None seen (None) unknown) (unknown) (no (unknown) (unknown) Urine Cocaine (units ( unknown) date) Screen (Negative) unknown) (unknown) (no (unknown) (unknown) Urine Cocaine (units ( unknown) date) Screen Negative unknown) (Negative) (unknown) (no (unknown) (unknown) Urine Methadone (units (unknown) date) Screen (Negative) unknown) (unknown) (no (unknown) (unknown) Urine Methadone (units (unknown) date) Screen Negative unknown) (Negative) (unknown) (no (unknown) (unknown) Urine RBC (units (unkn own) date) (0-5/HPF) unknown) (unknown) (no (unknown) (unknown) Urine RBC (units (unkn own) date) 0-1/hpf (0-5/HPF) unknown) (unknown) (no (unknown) (unknown) Urine Specific (units (unknown) date) [place] 1.010 unknown) (unknown) (no (unknown) (unknown) Urine WBC (units (unkn own) date) (0-5/HPF) unknown) (unknown) (no (unknown) (unknown) Urine WBC (units (unkn own) date) 0-1/hpf (0-5/HPF) unknown) (unknown) (no (unknown) (unknown) Vital Signs (units (un known) date) unknown) (unknown) (no (unknown) (unknown) Vital signs: (units (u nknown) date) unknown) (unknown) (no (unknown) (unknown) Your alcohol level (units (unknown) date) upon arrival was unknown) 274, quite high. I do believe you would (unknown) (no (unknown) (unknown) [Embedded Image (units (unknown) date) Not Available] unknown) (unknown) (no (unknown) (unknown) acute bony injury. (units (unknown) date) The patient has unknown) been here 12 hours. She has slept a lot. (unknown) (no (unknown) (unknown) alcohol intake (units (unknown) date) frequency: 0-2 unknown) drinks per day (unknown) (no (unknown) (unknown) alcohol intake: (units (unknown) date) never unknown) (unknown) (no (unknown) (unknown) allopurinol 100 mg (units (unknown) date) tablet See Rx unknown) Instructions .ROUTE 02/22/21 (unknown) (no (unknown) (unknown) apparently became (units (unknown) date) upset. Before the unknown) discharge process could be completed she (unknown) (no (unknown) (unknown) apparently fell on (units (unknown) date) water at her unknown) apartment, she has had 5 days ago at triage. (unknown) (no (unknown) (unknown) benefit from (units (u nknown) date) alcohol detox. unknown) (unknown) (no (unknown) (unknown) blood sugar (units (un known) date) diagnostic (Blood unknown) #100 each 05/15/18 (unknown) (no (unknown) (unknown) compr.stocking,kne (units (unknown) date) e,long,large #2 unknown) each 08/12/18 (unknown) (no (unknown) (unknown) diazepam 5 mg (units ( unknown) date) tablet 5 mg PO BID unknown) #60 tab 12/01/21 (unknown) (no (unknown) (unknown) disintegrating (units (unknown) date) tablet unknown) (unknown) (no (unknown) (unknown) dislocation. (units (u nknown) date) unknown) (unknown) (no (unknown) (unknown) finished, likely (units (unknown) date) out the ambulance unknown) door. (unknown) (no (unknown) (unknown) fluoxetine 40 mg (units (unknown) date) capsule See Rx unknown) Instructions .ROUTE 03/03/21 (unknown) (no (unknown) (unknown) furosemide 40 mg (units (unknown) date) tablet 40 mg PO unknown) DAILY #90 tab 10/12/21 (unknown) (no (unknown) (unknown) her apartment, her (units (unknown) date) landlord, her unknown) neighbors. She has no headache, no sore (unknown) (no (unknown) (unknown) home. (units (unkno wn) date) unknown) (unknown) (no (unknown) (unknown) household members: (units (unknown) date) none unknown) (unknown) (no (unknown) (unknown) hydroxyzine HCl 25 (units (unknown) date) mg tablet 25 mg PO unknown) BID PRN #60 tab 10/08/20 (unknown) (no (unknown) (unknown) interview. She had (units (unknown) date) remembered ask unknown) about the x-ray of her light leg, there is no (unknown) (no (unknown) (unknown) intoxicated. She (units (unknown) date) apparently had 2 unknown) beers. She has a litany of complaints about (unknown) (no (unknown) (unknown) lamotrigine 25 mg (units (unknown) date) tablet (Lamictal) unknown) 50 mg PO QDAY #180 tab 10/26/21 (unknown) (no (unknown) (unknown) lancets 30 gauge (units (unknown) date) (TRUEplus Lancets) unknown) #100 each 01/01/18 (unknown) (no (unknown) (unknown) lidocaine 5 % (units ( unknown) date) topical patch 1 unknown) patch TOP DAILY #30 each 09/21/21 (unknown) (no (unknown) (unknown) losartan 100 mg (units (unknown) date) tablet 100 mg PO unknown) DAILY #90 tab 10/26/21 (unknown) (no (unknown) (unknown) metformin 1,000 mg (units (unknown) date) tablet 1,000 mg PO unknown) BID #180 tab 02/08/21 (unknown) (no (unknown) (unknown) metoclopramide HCl (units (unknown) date) 5 mg 5 mg PO BID unknown) PRN #30 tab 04/15/20 (unknown) (no (unknown) (unknown) musculoskeletal (units (unknown) date) complaints. She unknown) feels stressed out. She repeatedly says she (unknown) (no (unknown) (unknown) nausea and Denies (units (unknown) date) vomiting unknown) (unknown) (no (unknown) (unknown) needs a reset. (units (unknown) date) unknown) (unknown) (no (unknown) (unknown) otherwise (units (unkn own) date) atraumatic. unknown) (unknown) (no (unknown) (unknown) oxycodone 5 mg (units (unknown) date) tablet 5 mg PO QID unknown) PRN #150 tab 10/12/21 (unknown) (no (unknown) (unknown) pain, cough or (units (unknown) date) dyspnea. She has unknown) no GI or complaints. She has no other (unknown) (no (unknown) (unknown) patella, over the (units (unknown) date) proximal tibia. No unknown) acute bony injury. Extremities are (unknown) (no (unknown) (unknown) simvastatin 20 mg (units (unknown) date) tablet 20 mg PO unknown) QDAY #90 tab 07/04/19 (unknown) (no (unknown) (unknown) sore throat (units (un known) date) unknown) (unknown) (no (unknown) (unknown) throat, no sinus (units (unknown) date) pressure. She has unknown) neck pain or back pain. She denies chest (unknown) (no (unknown) (unknown) was more coherent (units (unknown) date) at the time the 2nd unknown) interview. She did not remember the 1st Result panel 13 (unknown) (no date) (unknown) (unknown) (no value) (units (un known) unknown) (unknown) (no date) (unknown) (unknown) Mixed gram -/+ (units (unknown) nelly. Deemed unknown) unsuitable for further studies. Result panel 14 (unknown) (no (unknown) (unknown) (no value) (units (unk nown) date) unknown) (unknown) (no (unknown) (unknown) [facility] (units (unknown) date) Medicine unknown) (unknown) (no (unknown) (unknown) [place], [place] (units ( unknown) date) [id number] unknown) (unknown) (no (unknown) (unknown) Care Management (units (unknown) date) Visit unknown) (unknown) (no (unknown) (unknown) Draft (units (unkno wn) date) unknown) (unknown) (no (unknown) (unknown) (no value) (units (unk nown) date) unknown) (unknown) (no (unknown) (unknown) [id number] (units (unkno wn) date) unknown) (unknown) (no (unknown) (unknown) 01/11/22 (units (unkno wn) date) unknown) (unknown) (no (unknown) (unknown) 1. Little (units (unkn own) date) interest or unknown) pleasure in doing things: nearly every day (unknown) (no (unknown) (unknown) 2. Feeling down, (units (unknown) date) depressed, or unknown) hopeless: nearly every day (unknown) (no (unknown) (unknown) 3. Trouble (units (unk nown) date) falling or unknown) staying asleep, or sleeping too much: several days (unknown) (no (unknown) (unknown) 4. Feeling tired (units (unknown) date) or having little unknown) energy: several days (unknown) (no (unknown) (unknown) 5. Poor appetite (units (unknown) date) or overeating: unknown) several days (unknown) (no (unknown) (unknown) 6. Feeling bad (units (unknown) date) about yourself - unknown) or that you are a failure or have let yourself (unknown) (no (unknown) (unknown) 7. Trouble (units (unk nown) date) concentrating on unknown) things, such as reading the newspaper or watching (unknown) (no (unknown) (unknown) 8. Moving or (units (u nknown) date) speaking so unknown) slowly that other people could have noticed? - Or the (unknown) (no (unknown) (unknown) 9. Thoughts that (units (unknown) date) you would be unknown) better off or of hurting yourself in some (unknown) (no (unknown) (unknown) Age/Sex: 61 / F (units (unknown) date) Date of unknown) Service: (unknown) (no (unknown) (unknown) Attending Dr: (units ( unknown) date) Tiffany PERDOMO unknown) (unknown) (no (unknown) (unknown) BHIP Care (units (unkn own) date) Turbine Measurements Engineer Follow-Up unknown) (unknown) (no (unknown) (unknown) Becoming easily (units (unknown) date) annoyed or unknown) irritable: 3 = Nearly every day (unknown) (no (unknown) (unknown) Being so (units (unkno wn) date) restless that it unknown) is hard to sit still: 0 = Not at all (unknown) (no (unknown) (unknown) : 1960 (units (unknown) date) Acct:[id number] unknown) (unknown) (no (unknown) (unknown) Dept at (units (unkno wn) date) . unknown) (unknown) (no (unknown) (unknown) Documented By: (units (unknown) date) Tiffany Hawkins unknown) 01/11/22 1100 (unknown) (no (unknown) (unknown) Feeling afraid (units (unknown) date) as if something unknown) awful might happen: 1 = Several days (unknown) (no (unknown) (unknown) Feeling nervous, (units (unknown) date) anxious, or on unknown) edge: 3 = Nearly every day (unknown) (no (unknown) (unknown) SHAILESH-7 (units (unkno wn) date) unknown) (unknown) (no (unknown) (unknown) Loc: [facility] (units (unkno wn) date) unknown) (unknown) (no (unknown) (unknown) Met with patient (units (unknown) date) for the last time unknown) today, as she is now established with (unknown) (no (unknown) (unknown) Not being able (units (unknown) date) to stop or unknown) control worryin = Several days (unknown) (no (unknown) (unknown) Over the last 2 (units (unknown) date) weeks, how often unknown) have you been bothered by any of the following (unknown) (no (unknown) (unknown) PHQ-9 (units (unkno wn) date) unknown) (unknown) (no (unknown) (unknown) Patient: (units (unkno wn) date) Bere Lee unknown) MR#: [id number] (unknown) (no (unknown) (unknown) Presenting (units (unk nown) date) Problem Update unknown) (unknown) (no (unknown) (unknown) Questionnaires (units (unknown) date) unknown) (unknown) (no (unknown) (unknown) Signed By: (units (unk nown) date) unknown) (unknown) (no (unknown) (unknown) Source: (units (unkno wn) date) Developed by unknown) Armen Erickson, Becki Gillespie, Gurinder Duke (unknown) (no (unknown) (unknown) This note may (units ( unknown) date) have been all or unknown) partially generated using voice recognition (unknown) (no (unknown) (unknown) Total SHAILESH-7 (units (un known) date) score (0-4 unknown) normal; 5-9 mild; 10-14 moderate; 15-21 severe): 12 (unknown) (no (unknown) (unknown) Total score: 14 (units (unknown) date) unknown) (unknown) (no (unknown) (unknown) Trouble (units (unkno wn) date) relaxin = unknown) Several days (unknown) (no (unknown) (unknown) Worrying too (units (u nknown) date) much about unknown) different things: 3 = Nearly every day (unknown) (no (unknown) (unknown) and colleagues, (units (unknown) date) with an unknown) educational carole from [employer]. (unknown) (no (unknown) (unknown) and your family (units (unknown) date) down: nearly unknown) every day (unknown) (no (unknown) (unknown) assistance, (units (unk nown) date) counseling and unknown) other resource assistance. She also said that she is (unknown) (no (unknown) (unknown) have occurred. (units (unknown) date) If there are any unknown) questions, please contact the Medical Records (unknown) (no (unknown) (unknown) may occur. (units (unk nown) date) Occasional unknown) wrong-word or 'sound-alike' substitutions may have (unknown) (no (unknown) (unknown) more than usual: (units (unknown) date) several days unknown) (unknown) (no (unknown) (unknown) occurred due to (units (unknown) date) the inherent unknown) limitations of voice recognition software. Please (unknown) (no (unknown) (unknown) opposite - being (units (unknown) date) so fidgety or unknown) restless that you have been moving around a lot (unknown) (no (unknown) (unknown) problems? (units (unkn own) date) unknown) (unknown) (no (unknown) (unknown) read the note (units ( unknown) date) carefully and unknown) recognize, using context, where these substitutions (unknown) (no (unknown) (unknown) services through (units (unknown) date) [facility] unknown) Human Services. This includes housing (unknown) (no (unknown) (unknown) software. (units (unkn own) date) Although every unknown) effort is made to edit content, vacuum spindle sander errors (unknown) (no (unknown) (unknown) television: (units (un known) date) several days unknown) (unknown) (no (unknown) (unknown) way: not at all (units (unknown) date) unknown) Result panel 15 (unknown) (no (unknown) (unknown) (no value) (units (unk nown) date) unknown) (unknown) (no (unknown) (unknown) Qualifiers: (units (un known) date) unknown) (unknown) (no (unknown) (unknown) Status: Chronic (units (unknown) date) unknown) (unknown) (no (unknown) (unknown) 01/11/22 1119 (units ( unknown) date) unknown) (unknown) (no (unknown) (unknown) [facility] (units (unknown) date) Medicine unknown) (unknown) (no (unknown) (unknown) [place], [place] (units ( unknown) date) [id number] unknown) (unknown) (no (unknown) (unknown) Care Management (units (unknown) date) Visit unknown) (unknown) (no (unknown) (unknown) Depression Type: (units (unknown) date) major depressive unknown) disorder Major depression recurrence: (unknown) (no (unknown) (unknown) Signed (units (unkno wn) date) unknown) (unknown) (no (unknown) (unknown) (no value) (units (unk nown) date) unknown) (unknown) (no (unknown) (unknown) 'down' about her (units (unknown) date) landlord and unknown) after receiving news that her best friend from (unknown) (no (unknown) (unknown) (1) Anxiety: (units (u nknown) date) unknown) (unknown) (no (unknown) (unknown) (2) Depression: (units (unknown) date) unknown) (unknown) (no (unknown) (unknown) [id number] (units (unkno wn) date) unknown) (unknown) (no (unknown) (unknown) 01/11/22 (units (unkno wn) date) unknown) (unknown) (no (unknown) (unknown) 1. Little (units (unkn own) date) interest or unknown) pleasure in doing things: nearly every day (unknown) (no (unknown) (unknown) 2. Feeling down, (units (unknown) date) depressed, or unknown) hopeless: nearly every day (unknown) (no (unknown) (unknown) 3. Trouble (units (unk nown) date) falling or unknown) staying asleep, or sleeping too much: several days (unknown) (no (unknown) (unknown) 30 minutes (units (unk nown) date) unknown) (unknown) (no (unknown) (unknown) 4. Feeling tired (units (unknown) date) or having little unknown) energy: several days (unknown) (no (unknown) (unknown) 5. Poor appetite (units (unknown) date) or overeating: unknown) several days (unknown) (no (unknown) (unknown) 6. Feeling bad (units (unknown) date) about yourself - unknown) or that you are a failure or have let yourself (unknown) (no (unknown) (unknown) 7. Trouble (units (unk nown) date) concentrating on unknown) things, such as reading the newspaper or watching (unknown) (no (unknown) (unknown) 8. Moving or (units (u nknown) date) speaking so unknown) slowly that other people could have noticed? - Or the (unknown) (no (unknown) (unknown) 9. Thoughts that (units (unknown) date) you would be unknown) better off or of hurting yourself in some (unknown) (no (unknown) (unknown) Age/Sex: 61 / F (units (unknown) date) Date of unknown) Service: (unknown) (no (unknown) (unknown) Attending Dr: (units ( unknown) date) Tiffany Hawkins [employer] unknown) (unknown) (no (unknown) (unknown) BHIP Assessment (units (unknown) date) + Plan unknown) (unknown) (no (unknown) (unknown) BHIP Care (units (unkn own) date) Turbine Measurements Engineer Follow-Up unknown) (unknown) (no (unknown) (unknown) BHIP Goal #1: (units ( unknown) date) Address unknown) challenges, particularly hx of son's (unknown) (no (unknown) (unknown) BHIP Goal #2: (units ( unknown) date) Establish with unknown) comm. based services (unknown) (no (unknown) (unknown) BHIP Goal (units (unkn own) date) Progress#1: 4 unknown) (Engaged in counseling and problem solving) (unknown) (no (unknown) (unknown) BHIP Goal (units (unkn own) date) Progress#2: 10 unknown) (Connected through [facility]) (unknown) (no (unknown) (unknown) Becoming easily (units (unknown) date) annoyed or unknown) irritable: 3 = Nearly every day (unknown) (no (unknown) (unknown) Behavioral (units (unk nown) date) Activation, unknown) Motivational Interviewing, Problem Solving Treatment, (unknown) (no (unknown) (unknown) Being so (units (unkno wn) date) restless that it unknown) is hard to sit still: 0 = Not at all (unknown) (no (unknown) (unknown) Case Formulation (units (unknown) date) unknown) (unknown) (no (unknown) (unknown) : 1960 (units (unknown) date) Acct:[id number] unknown) (unknown) (no (unknown) (unknown) Dept at (units (unkno wn) date) . unknown) (unknown) (no (unknown) (unknown) Discharge from (units (unknown) date) [facility]. Connected unknown) with services. (unknown) (no (unknown) (unknown) Discussed recent (units (unknown) date) ED visit due to unknown) alcohol intoxication. 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, recurrent, in partial remission (unknown) (no (unknown) (unknown) Feeling afraid (units (unknown) date) as if something unknown) awful might happen: 1 = Several days (unknown) (no (unknown) (unknown) Feeling nervous, (units (unknown) date) anxious, or on unknown) edge: 3 = Nearly every day (unknown) (no (unknown) (unknown) SHAILESH-7 (units (unkno wn) date) unknown) (unknown) (no (unknown) (unknown) Goals + Progress (units (unknown) date) unknown) (unknown) (no (unknown) (unknown) Interventions (units ( unknown) date) unknown) (unknown) (no (unknown) (unknown) Loc: [facility] (units (unkno wn) date) unknown) (unknown) (no (unknown) (unknown) Met with patient (units (unknown) date) for the last time unknown) today, as she is now established with (unknown) (no (unknown) (unknown) Mindfulness and (units (unknown) date) Other (Connect unknown) with community counseling if she chooses) (unknown) (no (unknown) (unknown) Not being able (units (unknown) date) to stop or unknown) control worryin = Several days (unknown) (no (unknown) (unknown) Over the last 2 (units (unknown) date) weeks, how often unknown) have you been bothered by any of the following (unknown) (no (unknown) (unknown) PHQ-9 (units (unkno wn) date) unknown) (unknown) (no (unknown) (unknown) Patient appeared (units (unknown) date) tired and said unknown) that her back and knees were hurting today. She (unknown) (no (unknown) (unknown) Patient with (units (u nknown) date) symptoms of unknown) depression and anxiety in the context of grief/loss of (unknown) (no (unknown) (unknown) Patient: (units (unkno wn) date) Bere Lee unknown) MR#: [id number] (unknown) (no (unknown) (unknown) [place] had (units (unknown) date) . She said unknown) that she hasn't had a drink since then. (unknown) (no (unknown) (unknown) Plan (units (unkno wn) date) unknown) (unknown) (no (unknown) (unknown) Presenting (units (unk nown) date) Problem Update unknown) (unknown) (no (unknown) (unknown) Questionnaires (units (unknown) date) unknown) (unknown) (no (unknown) (unknown) Signed By: (units (unk nown) date) <Electronically unknown) signed by CONOR Rodríguez> (unknown) (no (unknown) (unknown) Source: (units (unkno wn) date) Developed by unknown) Armen Erickson, Becki Gillespie, Gurinder Duke (unknown) (no (unknown) (unknown) This note may (units ( unknown) date) have been all or unknown) partially generated using voice recognition (unknown) (no (unknown) (unknown) Time Spent (units (unk nown) date) unknown) (unknown) (no (unknown) (unknown) Time Spent: (units (un known) date) unknown) (unknown) (no (unknown) (unknown) Total SHAILESH-7 (units (un known) date) score (0-4 unknown) normal; 5-9 mild; 10-14 moderate; 15-21 severe): 12 (unknown) (no (unknown) (unknown) Total score: 14 (units (unknown) date) unknown) (unknown) (no (unknown) (unknown) Trouble (units (unkno wn) date) relaxin = unknown) Several days (unknown) (no (unknown) (unknown) Worrying too (units (u nknown) date) much about unknown) different things: 3 = Nearly every day (unknown) (no (unknown) (unknown) and colleagues, (units (unknown) date) with an unknown) educational carole from [employer]. (unknown) (no (unknown) (unknown) and development (units (unknown) date) of tools to unknown) address symptoms, and connection with community (unknown) (no (unknown) (unknown) and your family (units (unknown) date) down: nearly unknown) every day (unknown) (no (unknown) (unknown) assistance to (units ( unknown) date) appts. She also unknown) said that she is receiving support from the (unknown) (no (unknown) (unknown) assistance, (units (un known) date) counseling and unknown) other resource assistance. These team members (unknown) (no (unknown) (unknown) assistance. She (units (unknown) date) was tearful off unknown) and on throughout appointment, stating that she (unknown) (no (unknown) (unknown) based (units (unkno wn) date) counseling. unknown) (unknown) (no (unknown) (unknown) continues to have (units (unknown) date) difficulty with unknown) her landlord, and reportedly has been told she (unknown) (no (unknown) (unknown) engage with (units (un known) date) counselor and unknown[place] ([place]) (no (unknown) (unknown) felt stressed. (units (unknown) date) Provided unknown) supportive counseling and encouragement to continue to (unknown) (no (unknown) (unknown) has to move out (units (unknown) date) in two weeks. unknown) Working closely with housing resources and (unknown) (no (unknown) (unknown) have occurred. (units (unknown) date) If there are any unknown) questions, please contact the Medical Records (unknown) (no (unknown) (unknown) may occur. (units (unk nown) date) Occasional unknown) wrong-word or 'sound-alike' substitutions may have (unknown) (no (unknown) (unknown) more than usual: (units (unknown) date) several days unknown) (unknown) (no (unknown) (unknown) occurred due to (units (unknown) date) the inherent unknown) limitations of voice recognition software. Please (unknown) (no (unknown) (unknown) opposite - being (units (unknown) date) so fidgety or unknown) restless that you have been moving around a lot (unknown) (no (unknown) (unknown) problems? (units (unkn own) date) unknown) (unknown) (no (unknown) (unknown) read the note (units ( unknown) date) carefully and unknown) recognize, using context, where these substitutions (unknown) (no (unknown) (unknown) recurrent (units (unkn own) date) Active/Remission unknown) status: in partial remission Qualified Code(s): (unknown) (no (unknown) (unknown) reportedly meet (units (unknown) date) with her in her unknown) home as well as provide transportation (unknown) (no (unknown) (unknown) services through (units (unknown) date) [facility] unknown) Human Services. 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 (unknown) (no (unknown) (unknown) software. (units (unkn own) date) Although every unknown) effort is made to edit content, vacuum spindle sander errors (unknown) (no (unknown) (unknown) son in 2008 when (units (unknown) date) he was 13 years unknown) old. Will benefit from supportive counseling (unknown) (no (unknown) (unknown) television: (units (un known) date) several days unknown) (unknown) (no (unknown) (unknown) way: not at all (units (unknown) date) unknown) Result panel 16 (unknown) (no (unknown) (unknown) (no value) (units (unk nown) date) unknown) (unknown) (no (unknown) (unknown) Qualifiers: (units (un known) date) unknown) (unknown) (no (unknown) (unknown) Status: Chronic (units (unknown) date) unknown) (unknown) (no (unknown) (unknown) ADDENDUM (units (u nknown) date) unknown) (unknown) (no (unknown) (unknown) 01/11/22 1119 (units ( unknown) date) unknown) (unknown) (no (unknown) (unknown) 01/17/22 1708 (units ( unknown) date) unknown) (unknown) (no (unknown) (unknown) [facility] (units (unknown) date) Medicine unknown) (unknown) (no (unknown) (unknown) [place], [place] (units ( unknown) date) [id number] unknown) (unknown) (no (unknown) (unknown) Care Management (units (unknown) date) Visit unknown) (unknown) (no (unknown) (unknown) Depression Type: (units (unknown) date) major depressive unknown) disorder Major depression recurrence: (unknown) (no (unknown) (unknown) Signed with (units (un known) date) Addenda unknown) (unknown) (no (unknown) (unknown) (no value) (units (unk nown) date) unknown) (unknown) (no (unknown) (unknown) BHIP Discharge (units (unknown) date) Note unknown) (unknown) (no (unknown) (unknown) 'down' about her (units (unknown) date) landlord and unknown) after receiving news that her best friend from (unknown) (no (unknown) (unknown) (1) Anxiety: (units (u nknown) date) unknown) (unknown) (no (unknown) (unknown) (2) Depression: (units (unknown) date) unknown) (unknown) (no (unknown) (unknown) [id number] (units (unkno wn) date) unknown) (unknown) (no (unknown) (unknown) 01/11/22 (units (unkno wn) date) unknown) (unknown) (no (unknown) (unknown) 1. Little (units (unkn own) date) interest or unknown) pleasure in doing things: nearly every day (unknown) (no (unknown) (unknown) 2. Feeling down, (units (unknown) date) depressed, or unknown) hopeless: nearly every day (unknown) (no (unknown) (unknown) 3. Trouble (units (unk nown) date) falling or unknown) staying asleep, or sleeping too much: several days (unknown) (no (unknown) (unknown) 30 minutes (units (unk nown) date) unknown) (unknown) (no (unknown) (unknown) 4. Feeling tired (units (unknown) date) or having little unknown) energy: several days (unknown) (no (unknown) (unknown) 5. Poor appetite (units (unknown) date) or overeating: unknown) several days (unknown) (no (unknown) (unknown) 6. Feeling bad (units (unknown) date) about yourself - unknown) or that you are a failure or have let yourself (unknown) (no (unknown) (unknown) 7. Trouble (units (unk nown) date) concentrating on unknown) things, such as reading the newspaper or watching (unknown) (no (unknown) (unknown) 8. Moving or (units (u nknown) date) speaking so unknown) slowly that other people could have noticed? - Or the (unknown) (no (unknown) (unknown) 9. Thoughts that (units (unknown) date) you would be unknown) better off or of hurting yourself in some (unknown) (no (unknown) (unknown) Addendum (units (unkno wn) date) Documented By: unknown) CONOR Rodríguez (unknown) (no (unknown) (unknown) Addendum Signed (units (unknown) date) By: unknown) <Electronically signed by CONOR Rodríguez> (unknown) (no (unknown) (unknown) Age/Sex: 61 / F (units (unknown) date) Date of unknown) Service: (unknown) (no (unknown) (unknown) Agreed to by (units (u nknown) date) BHIP team unknown) (unknown) (no (unknown) (unknown) Attending Dr: (units ( unknown) date) Tiffany Hawkins SELECT[employer] PACKER unknown) (unknown) (no (unknown) (unknown) BHIP Assessment (units (unknown) date) + Plan unknown) (unknown) (no (unknown) (unknown) BHIP Care (units (unkn own) date) Turbine Measurements Engineer Follow-Up unknown) (unknown) (no (unknown) (unknown) BHIP CoCM Time: (units (unknown) date) care process manager unknown) total time spent in discharge process including (unknown) (no (unknown) (unknown) BHIP Goal #1: (units ( unknown) date) Address unknown) challenges, particularly hx of son's (unknown) (no (unknown) (unknown) BHIP Goal #2: (units ( unknown) date) Establish with unknown) comm. based services (unknown) (no (unknown) (unknown) BHIP Goal (units (unkn own) date) Progress#1: 4 unknown) (Engaged in counseling and problem solving) (unknown) (no (unknown) (unknown) BHIP Goal (units (unkn own) date) Progress#2: 10 unknown) (Connected through [facility]) (unknown) (no (unknown) (unknown) Becoming easily (units (unknown) date) annoyed or unknown) irritable: 3 = Nearly every day (unknown) (no (unknown) (unknown) Behavioral (units (unk nown) date) Activation, unknown) Motivational Interviewing, Problem Solving Treatment, (unknown) (no (unknown) (unknown) Being so (units (unkno wn) date) restless that it unknown) is hard to sit still: 0 = Not at all (unknown) (no (unknown) (unknown) Case Formulation (units (unknown) date) unknown) (unknown) (no (unknown) (unknown) : 1960 (units (unknown) date) Acct:[id number] unknown) (unknown) (no (unknown) (unknown) Dept at (units (unkno wn) date) . unknown) (unknown) (no (unknown) (unknown) Discharge from (units (unknown) date) BHIP. Connected unknown) with services. (unknown) (no (unknown) (unknown) Discussed recent (units (unknown) date) ED visit due to unknown) alcohol intoxication. 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, recurrent, in partial remission (unknown) (no (unknown) (unknown) Feeling afraid (units (unknown) date) as if something unknown) awful might happen: 1 = Several days (unknown) (no (unknown) (unknown) Feeling nervous, (units (unknown) date) anxious, or on unknown) edge: 3 = Nearly every day (unknown) (no (unknown) (unknown) Future Plans: (units ( unknown) date) Appropriate for unknown) higher level of care (unknown) (no (unknown) (unknown) SHAILESH-7 (units (unkno wn) date) unknown) (unknown) (no (unknown) (unknown) Goals + Progress (units (unknown) date) unknown) (unknown) (no (unknown) (unknown) Interventions (units ( unknown) date) unknown) (unknown) (no (unknown) (unknown) Loc: [facility] (units (unkno wn) date) unknown) (unknown) (no (unknown) (unknown) Met with patient (units (unknown) date) for the last time unknown) today, as she is now established with (unknown) (no (unknown) (unknown) Mindfulness and (units (unknown) date) Other (Connect unknown) with community counseling if she chooses) (unknown) (no (unknown) (unknown) Not being able (units (unknown) date) to stop or unknown) control worryin = Several days (unknown) (no (unknown) (unknown) Over the last 2 (units (unknown) date) weeks, how often unknown) have you been bothered by any of the following (unknown) (no (unknown) (unknown) PHQ-9 (units (unkno wn) date) unknown) (unknown) (no (unknown) (unknown) Patient appeared (units (unknown) date) tired and said unknown) that her back and knees were hurting today. She (unknown) (no (unknown) (unknown) Patient with (units (u nknown) date) symptoms of unknown) depression and anxiety in the context of grief/loss of (unknown) (no (unknown) (unknown) Patient: (units (unkno wn) date) Bere Lee unknown) MR#: [id number] (unknown) (no (unknown) (unknown) [place] had (units (unknown) date) . She said unknown) that she hasn't had a drink since then. (unknown) (no (unknown) (unknown) Plan (units (unkno wn) date) unknown) (unknown) (no (unknown) (unknown) Presenting (units (unk nown) date) Problem Update unknown) (unknown) (no (unknown) (unknown) Questionnaires (units (unknown) date) unknown) (unknown) (no (unknown) (unknown) Reason for (units (unk nown) date) Discharge: unknown) Transfers care (unknown) (no (unknown) (unknown) Signed By: (units (unk nown) date) <Electronically unknown) signed by CONOR Rodríguez> (unknown) (no (unknown) (unknown) Source: (units (unkno wn) date) Developed by unknown) Armen Erickson, Becki Gillespie, Gurinder Duke (unknown) (no (unknown) (unknown) This note may (units ( unknown) date) have been all or unknown) partially generated using voice recognition (unknown) (no (unknown) (unknown) Time Spent (units (unk nown) date) unknown) (unknown) (no (unknown) (unknown) Time Spent: (units (un known) date) unknown) (unknown) (no (unknown) (unknown) Total SHAILESH-7 (units (un known) date) score (0-4 unknown) normal; 5-9 mild; 10-14 moderate; 15-21 severe): 12 (unknown) (no (unknown) (unknown) Total score: 14 (units (unknown) date) unknown) (unknown) (no (unknown) (unknown) Trouble (units (unkno wn) date) relaxin = unknown) Several days (unknown) (no (unknown) (unknown) Worrying too (units (u nknown) date) much about unknown) different things: 3 = Nearly every day (unknown) (no (unknown) (unknown) and colleagues, (units (unknown) date) with an unknown) educational carole from [employer]. (unknown) (no (unknown) (unknown) and (units (unkno wn) date) communication unknown) with patient: 10 min (unknown) (no (unknown) (unknown) and development (units (unknown) date) of tools to unknown) address symptoms, and connection with community (unknown) (no (unknown) (unknown) and your family (units (unknown) date) down: nearly unknown) every day (unknown) (no (unknown) (unknown) assistance to (units ( unknown) date) appts. She also unknown) said that she is receiving support from the (unknown) (no (unknown) (unknown) assistance, (units (un known) date) counseling and unknown) other resource assistance. These team members (unknown) (no (unknown) (unknown) assistance. She (units (unknown) date) was tearful off unknown) and on throughout appointment, stating that she (unknown) (no (unknown) (unknown) based (units (unkno wn) date) counseling. unknown) (unknown) (no (unknown) (unknown) communication (units ( unknown) date) with referring unknown) provider + psychiatric oim consultant, documentation, (unknown) (no (unknown) (unknown) continues to have (units (unknown) date) difficulty with unknown) her landlord, and reportedly has been told she (unknown) (no (unknown) (unknown) engage with (units (un known) date) counselor and [place] ([place]) (no (unknown) (unknown) felt stressed. (units (unknown) date) Provided unknown) supportive counseling and encouragement to continue to (unknown) (no (unknown) (unknown) has to move out (units (unknown) date) in two weeks. unknown) Working closely with housing resources and (unknown) (no (unknown) (unknown) have occurred. (units (unknown) date) If there are any unknown) questions, please contact the Medical Records (unknown) (no (unknown) (unknown) may occur. (units (unk nown) date) Occasional unknown) wrong-word or 'sound-alike' substitutions may have (unknown) (no (unknown) (unknown) more than usual: (units (unknown) date) several days unknown) (unknown) (no (unknown) (unknown) occurred due to (units (unknown) date) the inherent unknown) limitations of voice recognition software. Please (unknown) (no (unknown) (unknown) opposite - being (units (unknown) date) so fidgety or unknown) restless that you have been moving around a lot (unknown) (no (unknown) (unknown) problems? (units (unkn own) date) unknown) (unknown) (no (unknown) (unknown) read the note (units ( unknown) date) carefully and unknown) recognize, using context, where these substitutions (unknown) (no (unknown) (unknown) recurrent (units (unkn own) date) Active/Remission unknown) status: in partial remission Qualified Code(s): (unknown) (no (unknown) (unknown) reportedly meet (units (unknown) date) with her in her unknown) home as well as provide transportation (unknown) (no (unknown) (unknown) services through (units (unknown) date) [facility] unknown) Human Services. 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 (unknown) (no (unknown) (unknown) software. (units (unkn own) date) Although every unknown) effort is made to edit content, vacuum spindle sander errors (unknown) (no (unknown) (unknown) son in 2008 when (units (unknown) date) he was 13 years unknown) old. Will benefit from supportive counseling (unknown) (no (unknown) (unknown) television: (units (un known) date) several days unknown) (unknown) (no (unknown) (unknown) way: not at all (units (unknown) date) unknown) Result panel 17 (unknown) (no (unknown) (unknown) (no value) (units (unk nown) date) unknown) (unknown) (no (unknown) (unknown) Qualifiers: (units (un known) date) unknown) (unknown) (no (unknown) (unknown) Status: Chronic (units (unknown) date) unknown) (unknown) (no (unknown) (unknown) (no value) (units (unk nown) date) unknown) (unknown) (no (unknown) (unknown) 02/02/22 1514 (units ( unknown) date) unknown) (unknown) (no (unknown) (unknown) [facility] (units (unknown) date) Medicine unknown) (unknown) (no (unknown) (unknown) [place], [place] (units ( unknown) date) [id number] unknown) (unknown) (no (unknown) (unknown) Care Management (units (unknown) date) Visit unknown) (unknown) (no (unknown) (unknown) Depression Type: (units (unknown) date) major depressive unknown) disorder Major depression recurrence: (unknown) (no (unknown) (unknown) Signed (units (unkno wn) date) unknown) (unknown) (no (unknown) (unknown) (no value) (units (unk nown) date) unknown) (unknown) (no (unknown) (unknown) (1) Anxiety: (units (u nknown) date) unknown) (unknown) (no (unknown) (unknown) (2) Depression: (units (unknown) date) unknown) (unknown) (no (unknown) (unknown) - Behavioral (units (u nknown) date) health care unknown) planning in relation to behavioral/psychi atric health (unknown) (no (unknown) (unknown) - Continuity of (units (unknown) date) care with a unknown) designated member of the care team. (unknown) (no (unknown) (unknown) - Facilitating (units (unknown) date) and coordinating unknown) treatment such as psychotherapy, (unknown) (no (unknown) (unknown) - Initial (units (unkn own) date) assessment or unknown) follow-up monitoring, including use of applicable (unknown) (no (unknown) (unknown) [id number] (units (unkno wn) date) unknown) (unknown) (no (unknown) (unknown) 02/02/22 (units (unkno wn) date) unknown) (unknown) (no (unknown) (unknown) Age/Sex: 61 / F (units (unknown) date) Date of unknown) Service: (unknown) (no (unknown) (unknown) Attending Dr: (units ( unknown) date) Tiffany PERDOMO unknown) (unknown) (no (unknown) (unknown) [facility] Monthly (units (un known) date) Summary: January, ) 2021, 40 minutes total (unknown) (no (unknown) (unknown) BHIP Assessment (units (unknown) date) + Plan unknown) (unknown) (no (unknown) (unknown) : 1960 (units (unknown) date) Acct:[id number] unknown) (unknown) (no (unknown) (unknown) Dept at (units (unkno wn) date) . 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 (unknown) (no (unknown) (unknown) Patient: (units (unkno wn) date) Bere Lee unknown) MR#: [id number] (unknown) (no (unknown) (unknown) Signed By: (units (unk nown) date) <Electronically unknown) signed by CONOR Rodríguez> (unknown) (no (unknown) (unknown) This note may (units ( unknown) date) have been all or unknown) partially generated using voice recognition (unknown) (no (unknown) (unknown) following (units (unkn own) date) elements unknown) documented individually as appropriate: (unknown) (no (unknown) (unknown) have occurred. (units (unknown) date) If there are any unknown) questions, please contact the Medical Records (unknown) (no (unknown) (unknown) may occur. (units (unk nown) date) Occasional unknown) wrong-word or 'sound-alike' substitutions may have (unknown) (no (unknown) (unknown) occurred due to (units (unknown) date) the inherent unknown) limitations of voice recognition software. Please (unknown) (no (unknown) (unknown) pharmacotherapy, (units (unknown) date) counseling and/or unknown) psychiatric consultation; and (unknown) (no (unknown) (unknown) problems, (units (unkn own) date) including unknown) revision for patients who are not progressing or whose (unknown) (no (unknown) (unknown) psychiatric (units (un known) date) oim consultant, and unknown) directed by the treating provider, with the (unknown) (no (unknown) (unknown) read the note (units ( unknown) date) carefully and unknown) recognize, using context, where these substitutions (unknown) (no (unknown) (unknown) recurrent (units (unkn own) date) Active/Remission unknown) status: in partial remission Qualified Code(s): (unknown) (no (unknown) (unknown) software. (units (unkn own) date) Although every unknown) effort is made to edit content, vacuum spindle sander errors (unknown) (no (unknown) (unknown) status changes; (units (unknown) date) unknown) (unknown) (no (unknown) (unknown) validated rating (units (unknown) date) scales; unknown) Social History date description facility (no date) Never smoked tobacco ([facility] Vital Signs date measurement value units +0000 BMI BMI 35.5 kg/m2 +0000 height_metric height_metric 167.64 cm +0000 height_standard height_standard 66 in +0000 weight_metric weight_metric 45.26 kg +0000 weight_standard weight_standard 99.79 lb [id number]+0000 BP_diastolic BP_diastolic 59 mm[H g] +0000 BP_systolic BP_systolic 109 mm[Hg] +0000 heart_rate heart_rate 84 /min [id number]+0000 respiration_rate respiration_rate 16 /min
[2022-02-03 21:01] LABS: BASOPHILS # (AUTO) 0.1 10^3/uL (0.0-0.1); BASOPHILS % (AUTO) 0.8 %; EOSINOPHILS # (AUTO) 0.3 10^3/uL (0.0-0.7); EOSINOPHILS % (AUTO) 3.5 %; HCT - HEMATOCRIT 35.5 % (37.0-47.0); HGB - HEMOGLOBIN 11.7 g/dL (12.0-16.0); LYMPHOCYTES # (AUTO) 3.4 10^3/uL (1.5-3.5); LYMPHOCYTES % (AUTO) 42.6 %; MEAN CORPUSCULAR HEMOGLOBIN 29.8 pg (27.0-31.0); MEAN CORPUSCULAR VOLUME 90.3 fL (81.0-99.0); MEAN PLATELET VOLUME 9.9 fL (7.9-10.8); MONOCYTES # (AUTO) 0.7 10^3/uL (0.0-1.0); MONOCYTES % (AUTO) 9.2 %; NEUTROPHILS # (AUTO) 3.5 10^3/uL (1.5-6.6); NEUTROPHILS % (AUTO) 43.5 %; PLT - PLATELET COUNT 214 10^3/uL (130-450); RED BLOOD COUNT 3.93 10^6/uL (4.20-5.40); RED CELL DISTRIBUTION WIDTH 14.9 % (12.0-15.0)
[2022-02-03 21:23] LABS: ACETAMINOPHEN < 10 ug/mL (10-30); ALBUMIN/GLOBULIN RATIO 1.2 (1.0-2.2); ALKALINE PHOSPHATASE 86 IU/L (42-121); ALT ALANINE AMINOTRANSFERASE 30 IU/L (10-60); AST ASPARTATE AMINOTRANSFERASE 33 IU/L (10-42); BILIRUBIN,TOTAL < 0.2 mg/dL (0.2-1.0); BUN - BLOOD UREA NITROGEN 25 mg/dL (6-20); CALCIUM 9.3 mg/dL (8.5-10.3); CARBON DIOXIDE - CO2 25 mmol/L (21-32); CHLORIDE 101 mmol/L (101-111); CREATININE 1.3 mg/dL (0.4-1.0); ETOH - ETHANOL 240.9 mg/dL; GFR - MDRD 50 (>89); GLUCOSE 99 mg/dL (70-100); LIPASE 31 U/L (22-51); POTASSIUM 4.1 mmol/L (3.5-5.0); SALICYLATE < 6.0 mg/dL; SODIUM 140 mmol/L (135-145); TOTAL PROTEIN 7.3 g/dL (6.7-8.2)
[2022-02-03] MEDS ORDERED: LIDOCAINE PATCH 5% TOP STA (23:16)
--- NOTE | 2022-02-03 23:53 | XRAY Report ---
PROCEDURE: Lumbar Spine 2 View INDICATIONS: pain/?fall/ETOH TECHNIQUE: 2 views of the lumbar spine were acquired. COMPARISON: None. FINDINGS: Bones: 5 olp-sks-cpmesyl vertebrae are present. There is a minimal leftward curvature of the thorac olumbar spine. There is minimal retrolisthesis at T12-L1, L1-L2, and L2-L3. There is mild multilevel degenerative disc disease throughout the lower thoracic and lumbar spine. There is mild facet arthrop athy in the lower lumbar spine. No vertebral body compression fractures. No suspicious bony lesions. Soft tissues: Overlying bowel gas pattern is normal. No suspicious soft tissue calcifications. IMPRESSION: 1. No definite fracture or subluxation. 2. Mild multilevel degenerative disc disease and mild facet arthropathy in the lower lumbar spine. Reviewed by: Martinez Barrientos MD on 02/03/2022 11:57 PM PDT Approved by: Martinez Barrientos MD on 02/03/2022 11:57 PM PDT Station ID: [id number]
--- NOTE | 2022-02-04 03:53 | ED Physician Documentation ---
History of Present Illness - Stated complaint Stated Complaint: MHE/ETOH - Chief complaint Chief Complaint: MHE - History obtained from History obtained from: Patient, EMS - Additonal information Additional information: Patient is a 61-year-old female brought in by EMS for alcohol use and back pain. Patient reports that she has been having lower back pain for 3 to 4 months that is worse in the mornings.She says that at times it makes it difficult for her to walk around. She denies any recent falls. She also reports having increased stress recently because Her son's birthday is coming up and he in 2008. She does admit to alcohol use. She denies being suicidal or homicidal. Per EMS, she was ambulatory at the scene. 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 - Present Medications Home Medications: Ambulatory Orders Medication Instructions Recorded Confirmed FLUoxetine [PROzac] 20 mg PO DAILY 10/27/15 11/28/16 Gabapentin 100 mg PO TID 10/27/15 11/28/16 lamoTRIgine [LaMICtal] 50 mg PO DAILY 10/27/15 11/28/16 metFORMIN [Glucophage] 1,000 mg PO BIDWM 10/27/15 11/28/16 Amitriptyline [Elavil] 100 mg PO QPM 10/12/16 11/28/16 Cholecalciferol (Vitamin D3) 2,000 unit PO DAILY 10/12/16 11/28/16 [Vitamin D3] Prazosin [Minipress] 2 mg PO QPM 10/12/16 11/28/16 hydroCHLOROthiazide [Hydrodiuril] 25 mg PO DAILY tablet 10/16/16 11/28/16 Hydrocodone/Acetaminophen 1 tab PO QID PRN 11/28/16 11/28/16 [Hydrocodone-Acetamin 7.5-325] Insulin Aspart [Novolog Flexpen] 1 - 29 units SUBQ ACHS 11/28/16 11/28/16 Insulin Glargine [Lantus] 14 units SQ QPM 11/28/16 11/28/16 diazePAM [Diazepam] 5 mg PO BID 11/28/16 11/28/16 Acetaminophen [Tylenol] 650 - 975 mg PO Q4HR PRN #0 tablet 11/29/16 Aspirin [Carol] 325 mg PO BID tablet 11/29/16 HYDROcodone/ACET 7.5/325 [[place] 1 tab PO QID PRN #60 tablet 11/29/16 7.5/325] - Allergies Allergies/Adverse Reactions: Allergies Allergy/AdvReac Type Severity Reaction Status Date / Time No Known Drug Allergies Allergy Verified 02/03/22 19:29 - Social History Does the pt smoke?: No Smoking Status: Never smoker Does the pt drink ETOH?: Yes Does the pt have substance abuse?: No - Immunizations Immunizations are current?: Yes PD ED PE NORMAL - General General: Alert and oriented X 3, Well developed/nourished, Other (Yelling and swearing at times in hallway bed) - HEENT HEENT: Atraumatic, PERRL, EOMI, Moist mucous membranes - Neck Neck: Supple, no meningeal sign, No bony TTP - Cardiac Cardiac: No murmur, Strong equal pulses, Other (Tachycardic, regular rhythm) - Respiratory Respiratory: No respiratory distress, Clear bilaterally - Abdomen Abdomen: Normal bowel sounds, Soft, Non tender, Non distended - Back Back: Other (Mild low lumbar tenderness to palpation with no bony step-offs, deformities or erythema) - Extremities Extremities: No deformity, No edema, Other (Pedal pulses intact) - Neuro Neuro: Alert and oriented X 3, No motor deficit Results - Vitals Vitals: Vital Signs - 24 hr 02/03/22 02/03/22 02/03/22 20:35 22:18 23:11 Temperature 36.9 C Heart Rate 104 H 110 H 103 H Respiratory 18 18 20 Rate Blood Pressure 106/59 L 101/78 114/68 O2 Saturation 93 96 94 02/04/22 07:20 Temperature 36.7 C Heart Rate 96 Respiratory 16 Rate Blood Pressure 148/54 H O2 Saturation 95 Oxygen O2 Source [] Nasal cannula O2 Source Room air - EKG (time done) 2048 Rate: Rate (enter#) (103) Rhythm: Sinus tachycardia [place]: Normal Intervals: No: Prolonged QT (QTC 479) Ischemia: No: ST elevation c/w ischemia - Labs Labs: Laboratory Tests 02/03/22 02/03/22 02/03/22 20:53 20:53 20:53 WBC 8.0 RBC 3.93 L Hgb 11.7 L Hct 35.5 L MCV 90.3 MCH 29.8 MCHC 33.0 RDW 14.9 Plt Count 214 MPV 9.9 Neut # (Auto) 3.5 Lymph # (Auto) 3.4 [place] # (Auto) 0.7 Eos # (Auto) 0.3 Baso # (Auto) 0.1 Absolute Nucleated RBC 0.00 Nucleated RBC % 0.0 Sodium 140 Potassium 4.1 Chloride 101 Carbon Dioxide 25 Anion Gap 14.0 H BUN 25 H Creatinine 1.3 H Estimated GFR (MDRD) 50 L Glucose 99 Calcium 9.3 Total Bilirubin < 0.2 L AST 33 ALT 30 Alkaline Phosphatase 86 Total Protein 7.3 Albumin 4.0 Globulin 3.3 Albumin/Globulin Ratio 1.2 Lipase 31 TSH 3.53 Urine Color Urine Clarity Urine pH Ur Specific [place] Urine Protein Urine Glucose (UA) Urine Ketones Urine Occult Blood Urine Nitrite Urine Bilirubin Urine Urobilinogen Ur Leukocyte Esterase Urine RBC Urine WBC Ur Squamous Epith Cells Urine Bacteria Ur Microscopic Review Urine Culture Comments Salicylates < 6.0 Urine Opiates Screen Ur Oxycodone Screen Urine Methadone Screen Ur Propoxyphene Screen Acetaminophen < 10 L Ur Barbiturates Screen Ur Tricyclics Screen Ur Phencyclidine Scrn Ur Amphetamine Screen U Methamphetamines Scrn U Benzodiazepines Scrn Urine Cocaine Screen U Cannabinoids Screen Ethyl Alcohol 240.9 02/04/22 06:41 WBC RBC Hgb Hct MCV MCH MCHC RDW Plt Count MPV Neut # (Auto) Lymph # (Auto) [place] # (Auto) Eos # (Auto) Baso # (Auto) Absolute Nucleated RBC Nucleated RBC % Sodium Potassium Chloride Carbon Dioxide Anion Gap BUN Creatinine Estimated GFR (MDRD) Glucose Calcium Total Bilirubin AST ALT Alkaline Phosphatase Total Protein Albumin Globulin Albumin/Globulin Ratio Lipase TSH Urine Color YELLOW Urine Clarity CLEAR Urine pH 5.5 Ur Specific [place] 1.020 Urine Protein 30 H Urine Glucose (UA) NEGATIVE Urine Ketones NEGATIVE Urine Occult Blood NEGATIVE Urine Nitrite NEGATIVE Urine Bilirubin NEGATIVE Urine Urobilinogen 0.2 (NORMAL) Ur Leukocyte Esterase NEGATIVE Urine RBC 0-5 Urine WBC 0-3 Ur Squamous Epith Cells MOD Squamous H Urine Bacteria Rare Ur Microscopic Review INDICATED Urine Culture Comments NOT INDICATED Salicylates Urine Opiates Screen NEGATIVE Ur Oxycodone Screen POSITIVE H Urine Methadone Screen NEGATIVE Ur Propoxyphene Screen NEGATIVE Acetaminophen Ur Barbiturates Screen NEGATIVE Ur Tricyclics Screen NEGATIVE Ur Phencyclidine Scrn NEGATIVE Ur Amphetamine Screen NEGATIVE U Methamphetamines Scrn NEGATIVE U Benzodiazepines Scrn POSITIVE H Urine Cocaine Screen NEGATIVE U Cannabinoids Screen NEGATIVE Ethyl Alcohol PD MEDICAL DECISION MAKING - ED course Complexity details: reviewed results, re-evaluated patient, d/w patient ED course: 0434 - Patient has been up to bathroom with assistance. Patient reports feeling stress Regarding her living situation and sadness regarding the loss of her son. She is not suicidal or homicidal. She does not appear gravely disabled. 0643 Pt able to ambulate with walker. Has prescriptions for oxycodone and diazepam for her back at home. I stressed the importance of not mixing any of these medications with alcohol. Pt is Wanting to go home, again denies being suicidal. Pt is calling friends to look for ride. Patient brought in for evaluation by EMS for alcohol abuse and low back pain. Patient denies recent falls or injuries and that this is a chronic issue. Patient does endorse being depressed but is not suicidal or Homicidal. She does not want to talk to telepsychiatry as she reports having an outpatient therapist. She also does not feel she needs to be hospitalized at this time. She does not appear to be gravely disabled and again has not Made any suicidal statements to EMS or us.Would not fit criteria for involuntary detainment.Patient was allowed to sober overnight and is able to ambulate at her baseline with a walker.She was counseled regarding her substance abuse and plan for discharge when She comes up with her ride. Departure - Departure Disposition: 01 Home, Self Care Clinical Impression: Alcohol intoxication Qualifiers: Complication of substance-induced condition: uncomplicated Qualified Code(s): F10.920 - Alcohol use, unspecified with intoxication, uncomplicated Chronic low back pain Qualifiers: Back pain laterality: midline Sciatica presence: without sciatica Qualified Code(s): M54.50 - Low back pain, unspecified Condition: Stable Instructions: ED Back Care Tips, ED Alcohol Intoxication Follow-Up: DENG CHAUHAN [Physician No Access] - Comments: You were evaluated in the emergency department overnight. You are found to have a high level of alcohol in your system.You are allowed to sleep overnight and have the effects of the alcohol wear off. At this time, we feel that you are able to be discharged home safely. If it anytime you have concerns regarding your safety, or having thoughts of hurting yourself or others please return to the emergency department. You were also evaluated for your chronic low back pain. X-rays were negative for any new injuries. Please limit your alcohol use. Please also do not drink alcohol when using your pain medication or sedating medication like Valium. Please reach out to your primary care doctor for close follow-up in the next week. Discharge Date/Time: 02/04/22 07:57
[2022-02-04] MEDS ORDERED: ACETAMINOPHEN 325 MG TABLET PO STA ×2 (04:23→04:35)
[2022-02-04 06:45] LABS: BILIRUBIN,URINE NEGATIVE (NEGATIVE); GLUCOSE, URINE (UA) NEGATIVE (NEGATIVE); KETONES,URINE (UA) NEGATIVE (NEGATIVE); LEUKOCYTE ESTERASE, URINE NEGATIVE (NEGATIVE); MUDS CUTOFF CONCENTRATIONS CUTOFF CONC BELOW:; NITRITE,URINE NEGATIVE (NEGATIVE); OCCULT BLOOD,URINE NEGATIVE (NEGATIVE); PH,URINE 5.5 PH (5.0-7.5); PROTEIN,URINE 30 mg/dL (NEGATIVE); UROBILINOGEN,URINE 0.2 (NORMAL) E.U./dL (NORMAL)
[2022-02-04 06:48] LABS: CLARITY,URINE CLEAR (CLEAR)
[2022-02-04 06:55] LABS: BACTERIA,URINE Rare /HPF (None Seen); RBC,URINE 0-5 /HPF (0-5); SQUAMOUS EPITHELIAL CELL,UR MOD Squamous (<= Few); WBC,URINE 0-3 /HPF (0-5)
[2022-02-04 06:56] LABS: AMPHETAMINE SCREEN,URINE NEGATIVE (NEGATIVE); BARBITURATE SCREEN,UR NEGATIVE (NEGATIVE); BENZODIAZEPINES SCREEN, URINE POSITIVE (NEGATIVE); COCAINE SCREEN URINE NEGATIVE (NEGATIVE); METHADONE SCREEN, URINE NEGATIVE (NEGATIVE); METHAMPHETAMINES SCREEN, URINE NEGATIVE (NEGATIVE); OPIATE SCREEN, URINE NEGATIVE (NEGATIVE); OXYCODONE SCREEN, URINE POSITIVE (NEGATIVE); PROPOXYPHENE SCREEN, URINE NEGATIVE (NEGATIVE); THC CANNABINOID SCREEN, URINE NEGATIVE (NEGATIVE); TRICYCLIC ANTIDEPRESSANT,URINE NEGATIVE (NEGATIVE)
[2022-02-04 07:21] VITALS: BP 148/54
[2022-02-04] MEDS ORDERED: MELOXICAM 7.5 MG TABLET PO STA (07:29)
== END 2022-02-04 07:57 | disposition home or self-care (01) ==
LOC: EDUNIT# → ED 19:09
DX: F10.920 Alcohol use, unspecified with intoxication, uncomplicated (principal); M54.50 Low back pain, unspecified; G89.29 Other chronic pain; Z63.4 Disappearance and death of family member; I10 Essential (primary) hypertension
CPT/HCPCS: 36415; 72100; 80053; 80306; 80307; 80320; 80329; 81001; 83690; 84443; 85025; 93005; 99281; 99284; A9270; 81003; 87086

== ENCOUNTER 2022-04-03 08:00 | Outpatient (CLI) | payer MEDICAID ==
[2022-04-03 22:02] LABS: BACTERIAL VAGINOSIS DNA NEGATIVE (NEGATIVE); CANDIDA GLABRATA DNA NEGATIVE (NEGATIVE); CANDIDA GROUP DNA NEGATIVE (NEGATIVE); CANDIDA KRUSEI DNA NEGATIVE (NEGATIVE); TRICHOMONAS VAGINALIS DNA NEGATIVE (NEGATIVE)
[2022-04-03 22:47] LABS: CHLAMYDIA TRACHOMATIS DNA NEGATIVE (NEGATIVE); NEISSERIA GONORRHOEAE DNA NEGATIVE (NEGATIVE)
== END 2022-04-03 23:59 | disposition home or self-care (01) ==
LOC: LAB.N 08:00
PROVIDERS: ATTEND Registered Nurse
DX: R10.2 Pelvic and perineal pain (principal)
CPT/HCPCS: 81514; 87491; 87591; 87661

== ENCOUNTER 2022-08-09 12:10 | Outpatient (CLI) | payer MEDICAID | END 2022-08-09 12:11 | disposition EMS.NT | LOC: EMS 12:10 | DX: Z03.89 Encounter for observation for other suspected diseases and conditions ruled out (principal) ==

== ENCOUNTER 2022-08-09 13:06 | Outpatient (CLI) | payer MEDICAID | END 2022-08-09 13:07 | disposition EMS.NT | LOC: EMS 13:06 | DX: R45.83 Excessive crying of child, adolescent or adult (principal); F41.9 Anxiety disorder, unspecified ==

== ENCOUNTER 2023-02-02 02:42 | Outpatient (CLI) | payer MEDICAID | END 2023-02-02 23:59 | disposition left against medical advice (07) | LOC: EMS 02:42 | DX: M25.562 Pain in left knee (principal); M25.561 Pain in right knee; W18.30XA Fall on same level, unspecified, initial encounter; Y92.038 Other place in apartment as the place of occurrence of the external cause; F10.90 Alcohol use, unspecified, uncomplicated ==

== ENCOUNTER 2023-02-05 20:34 | Outpatient (CLI) | payer MEDICAID | END 2023-02-05 23:59 | disposition short-term general hospital (02) | LOC: EMS 20:34 | DX: M54.6 Pain in thoracic spine (principal); W01.0XXA Fall on same level from slipping, tripping and stumbling without subsequent striking against object, initial encounter; Y93.01 Activity, walking, marching and hiking; Y92.003 Bedroom of unspecified non-institutional (private) residence as the place of occurrence of the external cause | CPT/HCPCS: A0425; A0429; A0999 ==

== ENCOUNTER 2023-02-05 20:56 | Emergency (ER) | payer MEDICAID ==
--- NOTE | 2023-02-05 21:55 | ED Physician Documentation ---
History of Present Illness - Stated complaint Stated Complaint: HBD, RT KNEE PAIN, SI - Chief complaint Chief Complaint: MHE - History obtained from History obtained from: Patient - Additonal information Additional information: The patient comes to the emergency department by EMS with chief complaint of bilateral knee pain. She states she had bilateral knee replacements about 20 years ago and denies any specific injury recently. She states the pain started while she was walking around the [employer]. She states that she waited for the bus for 2 hours and then somehow missed the bus and that she had to walk some more now her knees are hurting. Medics report that the patient seemed quite intoxicated upon picking her up although the patient states she is "only had 1 beer". No other complaints at this time. 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 - Present Medications Home Medications: Ambulatory Orders Medication Instructions Recorded Confirmed FLUoxetine [PROzac] 20 mg PO DAILY 10/27/15 02/06/23 Gabapentin 100 mg PO TID 10/27/15 02/06/23 lamoTRIgine [LaMICtal] 50 mg PO DAILY 10/27/15 02/06/23 metFORMIN [Glucophage] 1,000 mg PO BIDWM 10/27/15 02/06/23 Amitriptyline [Elavil] 100 mg PO QPM 10/12/16 02/06/23 Cholecalciferol (Vitamin D3) 2,000 unit PO DAILY 10/12/16 02/06/23 [Vitamin D3] Prazosin [Minipress] 2 mg PO QPM 10/12/16 02/06/23 hydroCHLOROthiazide [Hydrodiuril] 25 mg PO DAILY tablet 10/16/16 02/06/23 Hydrocodone/Acetaminophen 1 tab PO QID PRN 11/28/16 02/06/23 [Hydrocodone-Acetamin 7.5-325] Insulin Aspart [Novolog Flexpen] 1 - 29 units SUBQ ACHS 11/28/16 02/06/23 Insulin Glargine [Lantus] 14 units SQ QPM 11/28/16 02/06/23 diazePAM [Diazepam] 5 mg PO BID 11/28/16 02/06/23 Acetaminophen [Tylenol] 650 - 975 mg PO Q4HR PRN #0 tablet 11/29/16 02/06/23 Aspirin [Carol] 325 mg PO BID tablet 11/29/16 02/06/23 HYDROcodone/ACET 7.5/325 [[place] 1 tab PO QID PRN #60 tablet 11/29/16 02/06/23 7.5/325] - Allergies Allergies/Adverse Reactions: Allergies Allergy/AdvReac Type Severity Reaction Status Date / Time No Known Drug Allergies Allergy Verified 02/05/23 21:14 - Social History Does the pt smoke?: No Smoking Status: Never smoker Does the pt drink ETOH?: Yes Does the pt have substance abuse?: No - Immunizations Immunizations are current?: Yes PD ED PE NORMAL - Vitals Vital signs reviewed: Yes - General General: No acute distress, Well developed/nourished, Other (The patient appears intoxicated and smells very strongly of alcohol.) - HEENT HEENT: Atraumatic, PERRL, EOMI, Moist mucous membranes - Neck Neck: Supple, no meningeal sign - Cardiac Cardiac: RRR, No murmur, Strong equal pulses - Respiratory Respiratory: No respiratory distress, Clear bilaterally - Abdomen Abdomen: Soft, Non tender, Non distended - Derm Derm: Normal color, Warm and dry, No rash - Extremities Extremities: No deformity, No edema, Other (The patient has very well- established appearing scars consistent with her bilateral knee Arthroplasties. She is laying in the bed part way on her side with her knees bent and her feet tucked up. She expresses some discomfort when I straighten her legs out.) - Neuro Neuro: Other (The patient exhibits slurred and slowed speech. She is moving all 4 extremities and is otherwise awake and alert, But appears clinically intoxicated.) - Psych Psych: Normal mood, Normal affect Results - Vitals Vitals: Vital Signs - 24 hr 02/05/23 02/05/23 02/06/23 21:00 23:20 02:30 Temperature 36.2 C L Heart Rate 82 80 84 Respiratory 18 17 16 Rate Blood Pressure 127/71 128/74 130/80 O2 Saturation 95 98 97 02/06/23 02/06/23 03:32 04:00 Temperature 37.0 C 37.0 C Heart Rate 73 71 Respiratory 16 16 Rate Blood Pressure 133/62 H 138/86 H O2 Saturation 97 100 Oxygen O2 Source [Without Activity] Nasal cannula O2 Source Room air - Labs Labs: Laboratory Tests 02/05/23 23:00 Ethyl Alcohol 275.9 - Rads (name of study) Bilateral knee x-ray series Relevant Findings:: Final report received, See rad report (Bilateral knee arthroplasties with no acute fracture or dislocation. Small bilateral joint effusions.) PD Medical Decision Making - ED course Complexity details: reviewed results, re-evaluated patient, considered differential, d/w patient ED course: The patient was worked up with bilateral knee x-ray series which were unremarkable. Despite stating she only had "1 beer" her alcohol level was found to be 275. Patient was observed in the emergency department for nearly 9 hours. She was on reevaluation found to be fairly sober clinically and we were able to discuss her knee pain. I discussed with her that I am not sure why she has knee pain since she has already had both knees replaced, but I really do not find any acute cause. I have given her Decadron and Toradol here in the emergency department and have explained to her that with her alcohol level being so high, I cannot give her any narcotic pain medication. I have advised her to follow-up with her primary care physician to discuss any further concerns. We have discussed the usual indications for return. Departure - Departure Disposition: 01 Home, Self Care Clinical Impression: Knee pain Qualifiers: Chronicity: acute Laterality: bilateral Qualified Code(s): M25.561 - Pain in right knee Alcohol intoxication Qualifiers: Complication of substance-induced condition: uncomplicated Qualified Code(s): F10.920 - Alcohol use, unspecified with intoxication, uncomplicated Condition: Stable Instructions: ED Alcohol Intoxication, ED Knee Pain [facility] Comments: It is not clear what is causing your ongoing knee pain. X-rays have been done of both your knees here. Prostheses look good and there is no evidence of an acute problem with your knees. You were found to be heavily intoxicated in the emergency department for an alcohol level of 275. Please follow-up with your doctor to discuss further management of your knee pain as well as getting help with your drinking.
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
--- NOTE | 2023-02-05 23:35 | XRAY Report ---
PROCEDURE: Knee 3 View BILAT INDICATIONS: pain TECHNIQUE: 3 views of each knee were acquired. COMPARISON: None. FINDINGS: Bones: No fractures or dislocations. Bilateral knee joint prostheses are demonstrated. No definite s uspicious periprosthetic lucencies. There are periosteal calcifications medially along the right medi al femoral condyle as well as soft tissue calcifications along the medial joint capsule. Soft tissues: There are small bilateral joint effusions. IMPRESSION: 1. No acute fracture or dislocation. 2. Small bilateral joint effusions. 3. Nonspecific calcifications along the medial right joint capsule and medial femoral condyle suggest sequelae of a prior sprain or heterotopic ossification. Reviewed by: Martinez Barrientos MD on 02/05/2023 11:34 PM PDT Approved by: Martinez Barrientos MD on 02/05/2023 11:34 PM PDT Station ID: [id number]
[2023-02-06] MEDS: KETOROLAC 60 MG/2 ML VIAL IM STA (03:34)
[2023-02-06] MEDS: DEXAMETHASONE 10 MG/ML VIAL IM STA (03:35)
[2023-02-06 06:31] VITALS: BP 130/70
== END 2023-02-06 06:20 | disposition home or self-care (01) ==
LOC: EDUNIT# → ED 20:56
DX: M25.562 Pain in left knee (principal); M25.561 Pain in right knee; F10.129 Alcohol abuse with intoxication, unspecified; Y90.8 Blood alcohol level of 240 mg/100 ml or more; Z96.653 Presence of artificial knee joint, bilateral
CPT/HCPCS: 36415; 80320; 96372; 99283; 99284

== ENCOUNTER 2023-02-13 21:30 | Outpatient (CLI) | payer MEDICAID | END 2023-02-13 21:31 | disposition EMS.NT | LOC: EMS 21:30 | DX: F10.90 Alcohol use, unspecified, uncomplicated (principal); R45.89 Other symptoms and signs involving emotional state ==

== ENCOUNTER 2023-02-21 10:54 | Outpatient (CLI) | payer MEDICAID | END 2023-02-21 23:59 | disposition EMS.NT | LOC: EMS 10:54 | DX: S01.432A Puncture wound without foreign body of left cheek and temporomandibular area, initial encounter (principal); W18.39XA Other fall on same level, initial encounter; Y92.008 Other place in unspecified non-institutional (private) residence as the place of occurrence of the external cause ==

== ENCOUNTER 2023-02-28 04:16 | Outpatient (CLI) | payer MEDICAID | END 2023-02-28 23:59 | disposition left against medical advice (07) | LOC: EMS 04:16 | DX: M79.601 Pain in right arm (principal); R45.1 Restlessness and agitation; F10.90 Alcohol use, unspecified, uncomplicated ==

== ENCOUNTER 2023-03-03 14:59 | Outpatient (CLI) | payer MEDICAID | END 2023-03-03 23:59 | disposition left against medical advice (07) | LOC: EMS 14:59 | DX: M25.561 Pain in right knee (principal) ==